=== PATIENT | male | born 1955 | race African-American/Black ===

== ENCOUNTER 2025-02-07 08:59 | Outpatient (CLI) | payer MEDICARE, SELFPAY ==
--- OUTSIDE RECORDS SUMMARY | 2025-02-07 09:47 | XMS_ITS | CONTINUITY OF CARE DOCUMENT ---
Author Name sekoueduardo anai Address Unknown Organization [facility] Address [address] [place] [address] Phone [phone] Care Team Providers Care Janitor And Cleaner Name Role Phone Sujatha RODRIGUEZ, [facility] [[email or web address]] Unavailable YENNIFER EUBANKS DO Unavailable [phone] YENNIFER EUBANKS DO Unavailable [phone] INSURANCE PROVIDERS Payer name Policy type / Coverage type Dougherty red green party ID [id number] Other [id number]
--- OUTSIDE RECORDS SUMMARY | 2025-02-07 09:47 | XMS_ITS | Encounter Summary ---
Author Name [facility] [place] [facility] [place] Address [address] [place] [address] Care Team Providers Care Second Cook And Baker Name Role Phone CHITRA CASTANEDA Primary Care Provider Unavailabl e Insurance Providers: All historical and current Section Date Range: From patient's date of to the date document was created. This section includes the names of all active insurance providers for the patient. Insurance Provider Type of Coverage Plan Name Start of Policy Coverage End of Policy Coverage Group Number Member ID Insurance Provider's Telephone Number Policy Najera's Name Patient's Relationship to Policy Najera [facility] (WNR) MEDICARE ADVANTAGE [facility] (WNR) Jun 23, 2021 [id number] Devin MITCHELL PATIENT Selected Encounter This section includes the information on record at [place] for the Encounter. Date/Time Encounter Type Encounter Description Reason Provider Source Sep 15, 2024 01:00 PM OFFICE O/P EST MOD 30 MIN OPHTHALMOLOGY ICD-10-CM H40.1131 Primary open-angle glaucoma, bilateral, mild stage MARY SANDOVAL Encounter Template Text not used by VA Assessments - Encounter Diagnoses This section includes the primary and secondary diagnoses documented for the Encounter. Date/Time Primary/Secondary Diagnosis Diagnosis Name Provider Source Nov 06, 2024 03:28 PM PRIMARY Primary open-angle glaucoma, bilateral, mild stage RAGHAVENDRA MONZON [facility] Nov 06, 2024 03:28 PM SECONDARY Age-related nuclear cataract, bilateral RAGHAVENDRA MONZON [facility] Plan of Treatment: Future Appointments (+ 6 months) and Future Tests (+/- 45 days) The Plan of Treatment section includes future care activities for the patient from all [place] [facility] This section includes future appointments and future orders which are active, pending or scheduled. Future Appointments This section includes appointments that were scheduled to occur 6 months from the date of the Encounter, up to a maximum of 20 appointments. The data comes from all [place] treatment facilities. Appointment Date/Time Appointment Type Appointme nt Facility Name Oct 31, 2024 01:00 PM AMBULATORY - PSYCHIATRY [facility] Nov 07, 2024 03:00 PM AMBULATORY - MEDICINE [facility] Nov 09, 2024 01:30 PM AMBULATORY - SURGERY [facility] Nov 18, 2024 07:37 PM AMBULATORY - MEDICINE [facility] Dec 12, 2024 10:00 AM AMBULATORY - NONE [facility] December 21, 2024 01:30 PM AMBULATORY - SURGERY [facility] Jan 22, 2025 01:30 PM AMBULATORY - PSYCHIATRY [facility] Feb 12, 2025 01:30 PM AMBULATORY - MEDICINE [facility] Mar 12, 2025 01:00 PM AMBULATORY - NONE [facility] Social History: Smoking Status (Most current) and Tobacco Use (All prior to encounter date) This section includes the most current, and the historical, smoking and tobacco- related health factors from the [place] facility where the Encounter took place. Current Smoking Status This section includes the most current smoking, or tobacco-related health factor, from the [place] facility where the Encounter took place. Date/Time Current Smoking Status Comment Parvez reynoso May 18, 2024 01:04 PM VA-TOBACCO FORMER USER [facility] Tobacco Use History This section includes a history of the smoking, or tobacco-related health factors, that were collected on or before the date of the Encounter. The data comes from the [place] facility where the Encounter took place. Date/Time Smoking Status/Tobacco Use Comment F acility May 18, 2024 01:04 PM VA-TOBACCO QUIT 15 YRS OR MORE [facility] December 30, 2018 07:34 PM LIFETIME NON-USER OF TOBACCO [facility] May 03, 2018 05:45 PM LIFETIME NON-USER OF TOBACCO [facility] May 13, 2016 03:31 PM LIFETIME NON-USER OF TOBACCO [facility] Mar 12, 2015 01:23 PM QUIT TOBACCO >7 YEARS AGO [facility] January 12, 2014 10:16 AM LIFETIME NON-USER OF TOBACCO [facility] Mar 02, 2013 11:09 AM QUIT TOBACCO >7 YEARS AGO [facility] Jul 26, 2008 02:17 PM QUIT TOBACCO >7 YEARS AGO [facility] Advance Directives: All historical and current Section Date Range: From patient's date of to the date document was created. This section includes ALL of a patient's completed or amended [place] Advance and Rescinded Directives. The entries below indicate that a directive exists for the patient, but an actual copy is not included with this document. The data comes from all [place] facilities. Date Advance Directives Provider Source Apr 02, 2016 ADVANCE DIRECTIVE DISCUSSION UDAY BREEN [facility] Encounter Notes: All associated encounter notes This section contains the clinical notes associated to the Encounter. Date/Time Encounter Note(s) Provider Source Sep 15, 2024 01:51 PM OPHTHALMOLOGY NOTE : LOCAL TITLE: OPHTHALMOLOGY NOTE [facility] STANDARD TITLE: OPHTHALMOLOGY NOTE DATE OF NOTE: SEP 15, 2024@13:51 ENTRY DATE: SEP 15, 2024@13:51:46 AUTHOR: RAGHAVENDRA MONZON COSIGNER: FLORIAN SANDOVAL URGENCY: STATUS: COMPLETED GLAUCOMA NOTE Stable, no changes in vision. Moved recently and has been less adherent to midday drops because of this. Still is very adherent to morning and evening drops. Feels he may miss afternoon dose ~2x/wk. ======== Drops: Simbrinza TID OU -- used today Timolol QAM OU -- used today Latan QHS OU -- used last night Intolerant of dorzolamide (prolonged burning) ======== VISUAL ACUITY Without Correction OD: 20/25 OS: 20/16 Ta 09/15/202407/0304/14/2412/02/2306/04/2305/0712/07/2207/09/2204/0808/25/2007/0303/28/2106/0111/28/20 12.01/0209/26/2005/06 = MD check post-dilation. (07/01 Tt pre-dilation) 06/15/1907/0401/27/1907/0209/07/1808/0303/09/1809/03/1706/0403/01/1705/0307/13/1608/0304/13/1603/04/16 ---- SLT OD 03/02 ---- 02/14/1612/27/1507/15/1508/0408/31/14 SLEx OU L/L mild ptosis/dermatochalasis OU C/S mild injection OU K Mild arcus otherwise clear OU AC d/q OU I R/R, no NVI L 1+/2+ NS OU with mild CS Fundus (12/02/23) CDR: 0.85 OD, 0.75 OS more thin superior and temporal Mac: macular RPE changes OU Periphery OK OU ======== CCT (prior): 613/614 Gonio (09/07/18): C-D40R 1+/2+ pigment OU G (08/25/21): Grade II-III OU with 1+/2+ pigment OU G (06/04/23): stable HVF 24-2 08/08/12 OD: Inferior nasal step and superior nasal step; low reliability OS: Early inferior nasal step; low reliability due to poor pt response HVF 12/2015 OD: INS (stable) OS: INS stable to very mild progression HVF 12/2015 OD: INS + progression OS: INS mild progression HVF 09/09 OD: in NS - MD stable since 2014 - other test poor reliability OS: inf NS - MD back to baseline HVF 09/10 OD: INS/IA + mild SNS -9.39 -> progression OS: INS -2.59 --> variable (slightly worse c/w 2017, but better c/w 2016) HVF 05/2019 OD: Poor reliability, apparent regression of SNS with INS/IA now only IN OS: Fair reliability, apparent regression of INS/IA HVF (2020-09-26) OD: Superior arcuate (New), dense inferior arcuate. MD -10.58 OS: Early inferior arcuate. MD -3.45 HVF (2020-11-28) OD: Inferior arcuate, superior arcuate resolved. MD -5.35 (much improved) OS: Early inferior arcuate. MD -1.73 (improved) HVF (2021-03-28) OD: Inferior arcuate slightly worse than prior, though within limits of prior garland, no superior changes. MD -6.69 OS: essentially full, improved. MD -0.68 HVF (2021-08-25) OD: Moderate IA - variable but appears stable OS: full vs faint INS HVF (2023-06-04) OD: Mild IA>SNS -4.59 - variable but appears stable OS: INS -2.23 - slt worse (but similar 2020) HVF 24-2 (04/14/24) OD unreliable with s/i arcuate OS: unreliable with nasal nonspecific defects Automated GVF (09/15/2024) OD: baseline automated GVF, possible inferior arcuate, superior lid artifact OS: baseline automated GVF, possible inferior arcuate, superior lid artifact = NFL 08/2014 OD thin sup/inf/temp (stable with 2012) OS thin sup (stable with 2012) NFL 11/30/16 OD thin sup/inf/temp (stable with 2014) OS thin sup (stable with 2014) NFL 09/07/17 OD thin sup/inf/temp OS thin sup (stable with 2014) NFL (2020-09-26) OD: Av. Severe S/I/T thinning OS: Av. Severe S thinning. Moderate T thinning NFL 01/22/22 OD: 56, RED I/T/S overall stable OS: [address] overall stable NFL 12/07/22 OD: 54 severe 270 thinning (stable) OS: [address] (stable) NFL 12/02/23 OD: 55 severe 270 thinning (stable) OS: [address] (stable) Mac OCT (12/02/23): thin OD>OS. Mild VMT OD. normal foveal depression OU A/P: 68 year old 1. 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 +FHx (sisters) - Intolerant of dorzolamide (prolonged burning) - HVF have been highly unreliable. Today with first automated GVF to see if this improves reliability. Given that this is the baseline measurement, will repeat automated GVF at next visit as well, then decrease to annual if stable. - Large disc size overall - IOP excellent today on 4 classes - Prior SLT without much effect, but could attempt again if needed - Continue to follow primarily with RNFL and IOP. If >18, then consider next intervention (SLT, phaco-MIGS, Durysta). Well below goal today. - Continue lat QHS, valentín QAM, and Simbrinza TID OU - RTC 4-6 months for repeat Automated GVF with lid taping OU, DFE OU, and OCT RNFL/GCC OU 2. Early cataracts OU - NVS, monitor - Consider phaco/goniotomy when the time comes 3. RE/P - Happy with uncorrected distance vision - Uses OTC readers - RTC 4-6 months for Automated GVF OU with lid taping OU, DFE OU, and OCT RNFL/GCC OU /es/ Raghavendra Monzon MD/PhD Dental Technician Signed: 09/15/2024 14:15 /es/ FLORIAN SANDOVAL MD Staff Physician, Ophthalmology Cosigned: 09/15/2024 14:59 RAGHAVENDRA MONZON [facility]
--- OUTSIDE RECORDS SUMMARY | 2025-02-07 09:47 | XMS_ITS | Encounter Summary ---
Author Name [facility] [place] Address [address] [place] [address] Care Team Providers Care Event Staff Member Name Role Phone LEONELESTHERNatanael Primary Care Provider Unavailabl e Insurance Providers: [...] Najera's Name Patient's Relationship to Policy Najera [facility] (WNR) MEDICARE ADVANTAGE [facility] (WNR) Jun 23, 2021 [id number] Devin MITCHELL PATIENT Selected Encounter This section includes the information on record at [place] for the Encounter. Date/Time Encounter Type Encounter Description Reason Provider Source Sep 15, 2024 01:02 PM EXTENDED VISUAL FIELD XM OPHTHALMOLOGY ICD-10-CM H40.1131 Primary open-angle glaucoma, bilateral, mild stage JAMIN LOMAX IHAmarjit Encounter Template Text not used by VA Assessments - Encounter Diagnoses This section includes the primary and secondary diagnoses documented for the Encounter. Date/Time Primary/Secondary Diagnosis Diagnosis Name Provider Source Nov 06, 2024 03:19 PM PRIMARY Primary open-angle glaucoma, bilateral, mild stage DARIN LOMAX [facility] Plan of Treatment: Future Appointments (+ 6 months) and Future Tests (+/- 45 days) The Plan of Treatment section includes future care activities for the patient [facility] [place] [facility]. This section includes future appointments and future orders which are active, pending or scheduled. Future Appointments This section includes appointments that were scheduled to occur 6 months from the date of the Encounter, up to a maximum of 20 appointments. The data comes from all [place] treatment [facility]. Appointment Date/Time Appointment Type Appointme nt Facility Name Oct 31, 2024 01:00 PM AMBULATORY - PS[facility]CH[facility]ATRY [facility] Nov 07, 2024 03:00 PM AMBULATORY - MEDICINE [facility] Nov 09, 2024 01:30 PM AMBULATORY - SURGERY [facility] Nov 18, 2024 07:37 PM AMBULATORY - MEDICINE [facility] Dec 12, 2024 10:00 AM AMBULATORY - NONE [facility] December 21, 2024 01:30 PM AMBULATORY - SURGERY [facility] Jan 22, 2025 01:30 PM AMBULATORY - PSYCHIATRY [facility] Feb 12, 2025 01:30 PM AMBULATORY - MEDICINE [facility] Mar 12, 2025 01:00 PM AMBULATORY - NONE [facility] Social History: Smoking Status (Most current) and Tobacco Use (All prior to encounter date) This section includes the most current, and the historical, smoking and tobacco- related health factors from the [place] facility where the Encounter took place. Current Smoking Status This section includes the most current smoking, or tobacco-related health factor, from the [place] facility where the Encounter took place. Date/Time Current Smoking Status Comment Parvez ity May 18, 2024 01:04 PM VA-TOBACCO FORMER USER [facility] Tobacco Use History This section includes a history of the smoking, or tobacco-related health factors, that were collected on or before the date of the Encounter. The data comes from the [place] facility where the Encounter took place. Date/Time Smoking Status/Tobacco Use Comment F acility May 18, 2024 01:04 PM [place]-TOBACCO QUIT 15 YRS OR MORE [facility] December 30, 2018 07:34 PM LIFETIME NON-USER OF TOBACCO [facility] May 03, 2018 05:45 PM LIFETIME NON-USER OF TOBACCO [facility] May 13, 2016 03:31 PM LIFETIME NON-USER OF TOBACCO [facility] Mar 12, 2015 01:23 PM QUIT TOBACCO >7 YEARS AGO [facility] January 12, 2014 10:16 AM LIFETIME NON-USER OF TOBACCO [facility] Mar 02, 2013 11:09 AM QUIT TOBACCO >7 YEARS AGO [facility] Jul 26, 2008 02:17 PM QUIT TOBACCO >7 YEARS AGO [facility] Advance Directives: All historical and current Section Date Range: From patient's date of to the date document was created. This section includes ALL of a patient's completed or amended [place] Advance and Rescinded Directives. The entries below indicate that a directive exists for the patient, but an actual copy is not included with this document. The data comes from all [place] facilities. Date Advance Directives Provider Source Apr 02, 2016 ADVANCE DIRECTIVE DISCUSSION NUHADIMASEliza MIGUEL Ellie [facility] Encounter Notes: All associated encounter notes This section contains the clinical notes associated to the Encounter. Date/Time Encounter Note(s) Provider Source Sep 15, 2024 01:02 PM OPHTHALMOLOGY NOTE : LOCAL TITLE: OPHTHALMOLOGY NOTE [facility] STANDARD TITLE: OPHTHALMOLOGY NOTE DATE OF NOTE: SEP 15, 2024@13:02 ENTRY DATE: SEP 15, 2024@13:02:57 AUTHOR: DARIN LOMAX EXP COSIGNER: URGENCY: STATUS: COMPLETED TESTING OBTAINED:GVF Kinetic OU Complete INITIAL EYE SCREEN LAST VISIT: 04/14/2024 CHIEF COMPLAINT: States no changes in vision since last visit OCULAR REVIEW OF SYSTEMS: VISUAL ACUITY With Out Correction OD: 20/25 OS: 20/16 AUTO REFRACTION SUBJ: OD: +1.75 +0.50 145 OS: +1.25 +0.25 144 VISUAL ACUITY WITH AUTO REFRACTION: OD: 20/30-2 OS: 20/20-2 LENSOMETER: OD: N/A OS: N/A /sadaf/ DARIN LOMAX INFORMATICS DEVELOPER Signed: 09/15/2024 13:30 DARIN LOMAX [facility]
--- OUTSIDE RECORDS SUMMARY | 2025-02-07 09:48 | XMS_ITS | Encounter Summary ---
Author Organization [facility] Health Address [address] [place] [address] Care Team Providers Care Therapeutic Activities Services Worker Name Role Phone Alvarez Eubanks DO Primary Care Provider [phone] Alvarez Eubanks DO Unavailable [phone] Carlos Flynn Suellen NIGHT CLUB MANAGER-FIXED [employer]ING AIR[employer]FT FLIGHT MECHANIC Unavailable Encounter Details Date Type Department Care Team (Late st Contact Info) Description 08/31/2018 [facility] Outpatient Visit [facility] [address] [place] [address] [place] [address] [address] Social History Tobacco Use Types Packs/Day Years Used Date Smoking Tobacco: Former Cigarettes Smokeless Tobacco: Never Alcohol Use Standard Drinks/Week Comments No 0 (1 standard drink = 0.6 oz pur e alcohol) Sex and Gender Information Value Date Recorded Sex Assigned at Not on file Legal Sex 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 Gender Identity Not on file Sexual Orientation Not on file documented as of this encounter Plan of Treatment Not on file documented as of this encounter Visit Diagnoses Not on filedocumented in this encounter Care Teams Therapeutic Activities Services Worker Relationship Specialty Start Date End Date Alvarez Eubanks DO [address] [place] [address] PCP - General 09/02/09 Alvarez Eubanks DO [address] [place] [address] PCP - Attributed-[employer] 01/21/19 03/12/20 Carlos Flynn APRN-FIXED WING AIRCRAFT FLIGHT MECHANIC [address] [facility] [address] [id number] PCP - Attributed-[employer] 01/07/19 01/07/19 documented as of this encounter
--- OUTSIDE RECORDS SUMMARY | 2025-02-07 09:48 | XMS_ITS | Encounter Summary ---
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 Date/Time Encounter Type Encounter Description Reason Provider Source Nov 07, 2024 03:00 PM OFFICE O/P EST MOD 30 MIN PRIMARY CARE/MEDICINE ICD-10-CM I10 Essential (primary) hypertension ESTHER CASTANEDA IHAmarjit Encounter Template Text not used by [facility] Assessments - Encounter Diagnoses This section includes the primary and secondary diagnoses documented for the Encounter. Date/Time Primary/Secondary Diagnosis Diagnosis Name Provider Source Nov 07, 2024 03:42 PM PRIMARY Essential (primary) hypertension ERVIN CASTANEDAJAMAR [facility] Nov 07, 2024 03:42 PM SECONDARY Hyperlipidemia, unspecified [facility] Nov 07, 2024 03:42 PM SECONDARY Impaired fasting glucose [facility] Nov 07, 2024 03:42 PM SECONDARY Malignant neoplasm of prostate [facility] Nov 07, 2024 03:42 PM SECONDARY Vitamin D deficiency, unspecified [facility] Plan of Treatment: Future Appointments (+ 6 months) and Future Tests (+/- 45 days) The Plan of Treatment section includes future care activities for the patient from [facility]. This section includes future appointments and future orders which are active, pending or scheduled. Future Appointments This section includes appointments that were scheduled to occur 6 months from the date of the Encounter, up to a maximum of 20 appointments. The data comes from all [facility]. Appointment Date/Time Appointment Type Appointme nt Facility Name Nov 09, 2024 01:30 PM AMBULATORY - SURGERY . [facility] Nov 18, 2024 07:37 PM AMBULATORY - MEDICINE [facility] Dec 12, 2024 10:00 AM AMBULATORY - NONE [facility] December 21, 2024 01:30 PM AMBULATORY - SURGERY [facility] Jan 22, 2025 01:30 PM AMBUL[facility]ORY - PS[facility]CHIATRY [facility] Feb 12, 2025 01:30 PM AMBULATORY - MEDICINE [facility] Mar 12, 2025 01:00 PM AMBULATORY - NONE [facility] May 01, 2025 01:30 PM AMBULATORY - PS[facility]CHIATRY [facility] Active, Pending, and Scheduled Orders This section includes a listing of several types of active, pending, and scheduled orders, including clinic medications orders, diagnostic test orders, procedure orders and consult orders; where the start date of the order is 45 days before the date of the Encounter or 45 days after the date of theEncounter. The data comes from all [facility]. Test Date/Time Test Type Test Details Facility Name Dec 12, 2024 12:00 AM Laboratory - Chemi stry Order OCCULT BLOOD FIT X1 SCREEN STOOL FECES SP [facility] Lab Results: +/- 30 days of the encounter This section includes the Chemistry and Hematology Lab Results on record with [place] for the patient. Radiology Reports and Pathology Reports are provided separately, in subsequent sections. Lab Results This section contains the Chemistry/Hematology Results that were resulted 30 days before or 30 daysafter the date of the Encounter. Date/Time Source Result Type Result - Unit Interpretation Reference Range Specimen Type Comment Dec 04, 2024 11:00 AM [facility] OCCULT BLOOD FIT X1 SCREEN FECES Specimen Typ e: FECES No comment entered. Ordering Provider: CHITRA CASTANEDA Report Released Date/Time: Nov 07, 2024 03:30 PM Reporting Lab: [facility] [address] [facility] [id number] Performing Lab: [address] [address] OCCULT BLOOD (FIT) #1 OF 1 Negative Nega tive Nov 18, 2024 08:06 PM [facility] COVID-19 DIAGNOSTIC (FLU/RSV)(STL) NASOPHARYNX Spec imen Type: NASOPHARYNX Comment: Qualitative real-time PCR and RT-PCR to detect viral RNA. A negative result does not preclude infection with the agent(s) tested and should not be used as the sole basis for treatment or other patient management decisions. If negative, but symptoms persist, consider re-testing. Positive results do not rule out bacterial infection or co-infection with other viruses. All results must be combined with clinical observations, patient history, and epidemiological information for final interpretation. Ordering Provider: ALBERTO HOOKS Report Released Date/Time: Nov 18, 2024 08:03 PM Reporting Lab: [facility] [address] [facility] [id number] Performing Lab: [address] [id number] INFLUENZA A NEG Negative INFLUENZA B NEG Negative COVID-19 (STL-PB) NEG Not Detected RSV (Cepheid) Negative Negative Vital Signs: All taken on the encounter date This section contains inpatient and outpatient Vital Signs collected on the date of the Encounter. Date/Time Temperature Pulse Blood Pressure Respiratory Rate SP02 Pain Height Weight Body Mass Index Source Nov 07, 2024 02:56 PM 97.9 84 131/87 3 96 3 205.4 28 [facility] Social History: Smoking Status (Most current) and Tobacco Use (All prior to encounter date) This section includes the most current, and the historical, smoking and tobacco- related health factors from the [place] facility where the Encounter took place. Current Smoking Status This section includes the most current smoking, or tobacco-related health factor, from the [place] facility where the Encounter took place. Date/Time Current Smoking Status Comment Facil ity May 26, 2023 09:30 AM VA-TOBACCO QUIT 15 YRS OR MORE [facility] Tobacco Use History This section includes a history of the smoking, or tobacco-related health factors, that were collected on or before the date of the Encounter. The data comes from the [place] facility where the Encounter took place. Date/Time Smoking Status/Tobacco Use Comment F acility May 26, 2023 09:30 AM VA-TOBACCO QUIT 15 YRS OR MORE [facility] Aug 21, 2021 11:30 AM VA-TOBACCO FORMER USER [facility] Aug 21, 2021 11:30 AM VA-TOBACCO QUIT 15 YRS OR MORE [facility] December 31, 2017 12:42 PM QUIT TOBACCO >7 YEARS AGO [facility] Aug 27, 2017 10:19 AM QUIT TOBACCO >7 YEARS AGO [facility] Aug 24, 2017 11:31 AM QUIT TOBACCO >7 YEARS AGO [facility] Advance Directives: All historical and current Section Date Range: From patient's date of to the date document was created. This section includes ALL of a patient's completed or amended [place] Advance and Rescinded Directives. The entries below indicate that a directive exists for the patient, but an actual copy is not included with this document. The data comes from all [facility]. Date Advance Directives Provider Source Apr 02, 2016 ADVANCE DIRECTIVE DISCUSSION UDAY BREEN [facility] Radiology Reports: +/- 30 days of the encounter Radiology Reports For cases when an order for radiology services may have been completed prior to the date of the Encounter, the report list includes the Radiology Reports that were completed up to 30 days before dateof the Encounter. For cases when an order for radiology services may have been completed after the date of the Encounter, the report list also includes the Radiology Reports that were completed up to30 days after date of the Encounter. The data comes from all [place] treatment facilities. Date/Time Radiology Report Provider Source Nov 18, 2024 07:46 PM CHEST X-RAY, 2 VIE WS: TRA GALINDO [id number] -[id number] M Exm Date: NOV 18, 2024@19:46 Req Phys: VU,ALBERTO D Pat Loc: [facility] 3RD SHIFT (R Img Loc: [facility] RADIOLOGY SUITE Service: [facility], [facility] [address] [place] [address] (Case [id number] COMPLETE) CHEST X-RAY, 2 VIEWS (RAD Detailed) CPT:41591 Reason for Study: PNA rule out Clinical History: Report Status: Verified Date Reported: NOV 18, 2024 Date Verified: NOV 18, 2024 Research Chief Engineer E-Sig: Report: Procedure: CHEST X-RAY, 2 VIEWS Clinical history: PNA rule out Comparison: Chest x-rays of November 14, 2018. Technique: The study was protocoled and supervised at the local [place] facility. Study was sent to [facility] national teleradiology program (NTP) for interpretation. Frontal and lateral chest radiographs. Number of images submitted for evaluation: #2 Findings: Cardiac silhouette is within normal limits. There is no radiographic evidence of pulmonary vascular congestion or pulmonary edema. There is no pathologic widening of the mediastinum. There is no pulmonary consolidation. There is no pulmonary nodule or mass. There is no pleural effusion. There is no pneumothorax. There is no osteolytic or osteoblastic bone lesion. There is is age-related spondylosis of the thoracic spine. There is no free air under the diaphragms. Impression: The frontal and lateral chest radiographs demonstrate no acute pathology. There is age-related spondylosis of the thoracic spine. There is no significant change from recent exams. READING PHYSICIAN: Pepe Watson M.D. -[id number] 11/18/2024 15:35 [facility] National Teleradiology Program [phone] (For Medical Practitioner Use Only) Attention Patients / Veterans: If you have questions or concerns about these test results, please contact your ordering provider or primary care team. Primary Interpreting Staff: RADIOLOGY,OUTSIDE SERVICE, Staff Physician / RADIOLOGY,OUTSIDE SERVICE [facility] Encounter Notes: All associated encounter notes This section contains the clinical notes associated to the Encounter. Date/Time Encounter Note(s) Provider Source Nov 07, 2024 03:23 PM PRIMARY CARE NOTE: LOCAL TITLE: PRIMARY CARE PROVIDER ESTABLISHED VISIT STL STANDARD TITLE: PRIMARY CARE NOTE DATE OF NOTE: NOV 07, 2024@15:23 ENTRY DATE: NOV 07, 2024@15:23:52 AUTHOR: CHITRA CASTANEDA EXP COSIGNER: URGENCY: STATUS: COMPLETED Patient is 69 and BLACK OR Self Identified Gender - NONE FOUND Reason for visit:Scheduled follow-up Chief Complaint: Eyes feel puffy and irritation History of Present Illness: Mr Galindo is 69-year-old Afro-Gabonese male. Here for his routine clinic visit Multiple chronic medical condition as listed below Compliance with medications in the last hectic previous months has improved to a different location now Blood pressure is well-controlled Has glaucoma followed by ophthalmology on ophthalmic drops reports that his eyes sometimes irritate and feel puffiness under the eyes he did not call ophthalmology encouraged him to follow-up with ophthalmology to discuss further He agrees and going to call them make another appointment No other complaint History of prostate CA - s/p RALP 04/2018 - has urinary incontinece since - wears liners in daytime and uses washcloth at night as it is more comfortable follow urology his LUIS A. SPECIFIC AG.(PB-STL) <0.100 ng/mL Problem List: 1) Hyperlipidemia (SNOMED CT 90781833) 2) Obesity (SNOMED CT 777174381) 3) Screening for Diabetes Mellitus (ICD-9-CM V77.1) 4) Impaired fasting glycaemia (SNOMED CT 242637840) 5) Open-Angle, Chronic 6) Encounter for Therapeutic Drug Monitoring (ICD-9-CM V58.83) 7) Hematospermia 8) Allergic rhinitis 9) Herpes zoster 10) Normal tension glaucoma 11) Recurrent depression 12) Admits alcohol use 13) Ventral hernia 14) Erectile dysfunction following radical prostatectomy (SNOMED CT 445731174552148) 15) Benign essential hypertension 16) History of malignant neoplasm of prostate 17) Vitamin D deficiency History: Service Connected: 60% Rated Disabilities: INGUINAL HERNIA (0% SC) 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 NO BRANCH(ES) OF SERVICE: SPECIFIC YEARS OF SERVICE: LOCATION OF SERVICE: ENVIRONMENTAL EXPOSURE: Medication Review: The essential med list for review which includes the patient's active VA prescriptions and if applicable, remote VA prescriptions, non-VA prescriptions, and discontinued VA prescriptions within the last 90 days and known allergies including local and remote allergies have been reviewed. Allergies:IODINATED CONTRAST MEDIA, TRAVATAN Z, SLO-NIACIN TABLET, DORZOLAMIDE, COSOPT Active and Recently Outpatient Medications (excluding Supplies): Active Outpatient Medications Status 1) ATORVASTATIN CALCIUM 80MG TAB TAKE ONE TABLET BY MOUTH EVERY ACTIVE EVENING REPORT ANY UNEXPLAINED MUSCLE PAIN/WEAKNESS TO PROVIDER. Indication: FOR HIGH CHOLESTEROL 2) BRIMONIDINE 0.2%/BRINZOLAMID 1% OPH SUSP INSTILL 1 DROP IN ACTIVE BOTH EYES THREE TIMES A DAY FOR GLAUCOMA 3) BUPROPION HCL 150MG 24HR SA TAB TAKE ONE TABLET BY MOUTH ACTIVE ONCE A DAY SWALLOW WHOLE - DO NOT CRUSH OR CHEW. Indication: FOR DEPRESSION 4) CHOLECALCIF 50MCG (D3-2,000UNIT) TAB TAKE ONE TABLET BY ACTIVE MOUTH ONCE A DAY Indication: FOR VITAMIN D DEFICIENCY 5) HCTZ 12.5MG/LOSARTAN 50MG TAB TAKE 1 TABLET BY MOUTH EVERY ACTIVE MORNING TO LOWER BLOOD PRESSURE Indication: FOR HIGH BLOOD PRESSURE 6) LATANOPROST 0.005% OPH SOLN INSTILL 1 DROP IN BOTH EYES ACTIVE EVERY EVENING FOR GLAUCOMA. KEEP REFRIGERATED UNTIL READY TO USE, THEN STORE AT ROOM TEMPERATURE FOR MAXIMUM OF 42 DAYS. 7) MELATONIN 1MG CAP/TAB TAKE TWO CAP/TAB BY MOUTH AT BEDTIME ACTIVE NEEDED Indication: FOR SLEEP 8) NALTREXONE (EQV-REVIA) 50MG TAB TAKE ONE TABLET BY MOUTH ACTIVE ONCE A DAY Indication: FOR ASSISTANCE WITH DEPENDENCY 9) TIMOLOL MALEATE 0.5% OPH SOLN INSTILL 1 DROP IN BOTH EYES ACTIVE EVERY MORNING FOR GLAUCOMA. Active Non-VA Medications Status 1) Non-VA CICLOPIROX OLAMINE 0.77% TOP GEL SPARINGLY TO ACTIVE AFFECTED AREA(S) AT BEDTIME 2) Non-VA NALTREXONE (EQV-REVIA) 50MG TAB 25MG BY MOUTH ONCE A ACTIVE DAY FOR 7 DAYS THEN 50MG BY MOUTH ONCE A DAY Indication: FOR ASSISTANCE WITH DEPENDENCY 3) Non-VA PAPAVERINE INJ INTRAMUSCULARLY NEEDED ACTIVE 12 Total Medications Physical Exam VITALS (most recent, as listed in the electronic record): B/P: 131/87 (11/07/2024 14:56) Pulse: 84 (11/07/2024 14:56) Temperature: 97.9 F [36.6 C] (11/07/2024 14:56) Weight: 205.4 lb [93.17 kg] (11/07/2024 14:56) Height: 72 in [182.9 cm] (03/03/2024 09:33) BMI: 27.9 Pain: 3 (11/07/2024 14:56) (0-10 scale) Data Review: HGA1C 5.7 % 07/05/2024 11:54 Lipid Panel: TRIGLYCERIDE 159 H mg/dL 07/05/2024 11:54 CHOLESTEROL 220 H mg/dL 07/05/2024 11:54 HDL(New) 65 mg/dL 07/05/2024 11:54 CALCULATED LDL 123 mg/dL 07/05/2024 11:54 CMP: SODIUM 139 mEq/L 07/05/2024 11:54 POTASSIUM 4.1 mEq/L 07/05/2024 11:54 CHLORIDE 108 H mEq/L 07/05/2024 11:54 UREA NITROGEN 10.4 mg/dL 07/05/2024 11:54 CREATININE 1.04 mg/dL 07/05/2024 11:54 CALCIUM 9.8 mg/dL 07/05/2024 11:54 PROTEIN 7.4 g/dL 07/05/2024 11:54 ALBUMIN 4.2 g/dL 07/05/2024 11:54 ALKALINE PHOSPHATASE 119 U/L 07/05/2024 11:54 ALT/SGPT 25 U/L 07/05/2024 11:54 AST/SGOT 20 U/L 07/05/2024 11:54 TOTAL BILIRUBIN 0.2 mg/dL 07/05/2024 11:54 CARBON DIOXIDE 21 L mEq/L 07/05/2024 11:54 GLUCOSE 98 mg/dL 07/05/2024 11:54 EGFR (CKD-EPI 2020) 78.2 07/05/2024 11:54 CBC: WBC 5.4 10*3/uL 11/23/2023 11:00 RBC 4.12 10*6/uL 11/23/2023 11:00 HGB 13.8 g/dL 11/23/2023 11:00 HCT 40.1 % 11/23/2023 11:00 MCV 97.3 fL 11/23/2023 11:00 MCH 33.5 pg 11/23/2023 11:00 MCHC 34.4 g/dL 11/23/2023 11:00 RDW 12.0 % 11/23/2023 11:00 PLT 310 10*3/uL 11/23/2023 11:00 MPV 10.4 fL 11/23/2023 11:00 NEUTROPHILS, AUTO % 49 % 11/23/2023 11:00 LYMPHOCYTES, AUTO % 37 % 11/23/2023 11:00 MONOCYTES, AUTO % 9 % 11/23/2023 11:00 EOSINOPHILS, AUTO % 4 % 11/23/2023 11:00 BASOPHILS, AUTO % 1 % 11/23/2023 11:00 NEUTROPHILS, ABSOLUTE 2.66 10*3/uL 11/23/2023 11:00 LYMPHOCYTES, ABSOLUTE 1.98 10*3/uL 11/23/2023 11:00 MONOCYTES, ABSOLUTE 0.48 10*3/uL 11/23/2023 11:00 EOSINOPHILS, ABSOLUTE 0.24 10*3/uL 11/23/2023 11:00 BASOPHILS, ABSOLUTE 0.03 10*3/uL 11/23/2023 11:00 PSA: PROST. SPECIFIC AG.(PB-STL) <0.100 ng/mL 07/05/2024 11:54 TSH: No TSH (1YR) EO data found UA: URINE COLOR Yellow 11/23/2023 11:00 APPEARANCE Clear 11/23/2023 11:00 U.PH 5.5 11/23/2023 11:00 U.BILIRUBIN Negative mg/dL 11/23/2023 11:00 U.NITRITE Negative mg/dL 11/23/2023 11:00 URINE RBC/HPF 2 /HPF 11/23/2023 11:00 URINE WBC/HPF <1 /HPF 11/23/2023 11:00 MUCUS RARE /LPF 11/23/2023 11:00 CA OXYLATE CRYSTALS OCC /HPF 11/23/2023 11:00 Vitamin D: VITAMIN D, 25-HYDROXY 23.8 L ng/mL 07/05/2024 11:54 Micral/Creat Profile: No data available Result: Follow-up Action: Assessment/Plan: 1) hypertension-stable continue current antihypertensive -Continue avoid salty food and food like hot dog lunch meat canned food low sodium diet -Exercise daily 2) hyperlipidemia- Continue Atorvaststin 80 mga day -avoid saturated fat/animal fat diet- 3) Prediabetes - watch diet avoidance high carbohydrate diet like potato rice white bread he needs soda and juices Exercise daily and lose weight 4) erectile dysfunction Tadanafil 10mg pr week as directed He aware not to be on any nitrate compound Also aware tinnitus and NAION if experience. Medication immediately 5)Chronic low back pain - s/p surgery 1990 Stable - cont. Lidocain patch -use heating pad at home -Discussed stretch exercise Gabapentin and methocarbamol he takes as needed he felt 6) obstructive sleep apnea Using CPAP machine daily RTC: CLINICAL REMINDERS COMPLETED Avg Risk Colorectal Cancer Screen - L,N,P,PH: AVERAGE RISK colorectal cancer screening is due based on information available to this clinical reminder FOBT/FIT (Fecal Immunochemical Testing) has been ordered. See order tab for details. Screening is due now. Colonoscopy consult has been ordered. See orders tab for details. Depression Monitoring (PHQ-9) - M,N,P,PH,PS,R,S,T: PHQ-9 A PHQ-9 screen was performed. The score was 0. 1. Little interest or pleasure in doing things Not at all 2. Feeling down, depressed, or hopeless Not at all 3. Trouble falling or staying asleep, or sleeping too much Not at all 4. Feeling tired or having little energy Not at all 5. Poor appetite or overeating Not at all 6. Feeling bad about yourself or that you are a failure or have let yourself or your family down Not at all 7. Trouble concentrating on things, such as reading the newspaper or watching television Not at all 8. Moving or speaking so slowly that other people could have noticed. Or the opposite being so fidgety or restless that you have been moving around a lot more than usual Not at all 9. Thoughts that you would be better off or of hurting yourself in some way Not at all 10. If you checked off any problems, how DIFFICULT have these problems made it for you to do your work, take care of things at home or get along with other people? Not difficult at all [place]'s PHQ9 score IMPROVED from the most recent score PHQ-9 results discussed with patient Other Communication: followed by TIMOTHY /sadaf/ Chitra Castaneda MD Staff Physician Signed: 11/07/2024 15:44 CHITRA CASTANEDA [facility] Nov 07, 2024 02:57 PM NURSING NOTE: LOCAL TITLE: V15 PACT FACE TO FACE NOTE STL STANDARD TITLE: NURSING NOTE DATE OF NOTE: NOV 07, 2024@14:57 ENTRY DATE: NOV 07, 2024@14:57:31 AUTHOR: DONNA HORTON EXP COSIGNER: URGENCY: STATUS: COMPLETED V15 PACT FACE TO FACE NOTE STL Has ADDENDA Provider Visit: Patient Identifiers : Full Name Date of Reason for visit: Established Follow-Up Mode of Arrival: Ambulatory Allergy Review: IODINATED CONTRAST MEDIA, TRAVATAN Z, SLO-NIACIN TABLET, DORZOLAMIDE, COSOPT Allergy list reviewed and remains current. Recent Vital Signs: Temperature: 97.9 F [36.6 C] (11/07/2024 14:56) Pulse: 84 (11/07/2024 14:56) Respiration: 3 (11/07/2024 14:56) B/P: 131/87 (11/07/2024 14:56) Pain: 3 (11/07/2024 14:56) Wt: 205.4 lb [93.17 kg] (11/07/2024 14:56) Ht: 72 in [182.9 cm] (03/03/2024 09:33) BMI: 27.9 POX: 96% (11/07/2024 14:56) Blood sugar glucometer reading: N/A PERSONAL HEALTH INVENTORY Notes: No data available for PHI note titles PERSONAL HEALTH INVENTORY - MAP: Personal Health Inventory (Short) 06/28/2023 Phis What Do You Live For HEALTH [facility] 07/10/2024 Personal Health Plan [place], [place] (MAP) FAMILY 11/29/2023 Personal Health Plan [place], [place] (MAP) my health 10/06/2023 Personal Health Plan [place], [place] (MAP) be healthy eat better What matters most to you in your life right now? -- [place]'s Response: EVERYTHING Would you like to discuss any personal problem, family problem, alcohol use, drug use, or a mental or emotional illness? No Contact provided Primary Care phone number and encouraged to call if any questions or concerns. Review that after hours nurse line [phone] and emergency room are available 15/03 for patient use. Contact verbalized good understanding. No notification required for this note. Homelessness/Food Insecurity Screen - DI,L,N,P,PH,PS,S,U: In the past 2 months, have you been living in stable housing that you own, rent, or stay in as part of a household? Yes - Living in stable housing. Are you worried or concerned that in the next 2 months you may NOT have stable housing that you own, rent, or stay in as part of a household? No - Not worried about housing near future The reports the following: Within the past 12 months, you worried whether your food would run out before you got money to buy more. Never true Within the past 12 months, the food you bought just didn't last and you didn't have money to get more. Never true /sadaf/ DONNA HORTON LPN LICENSED PRACTICAL NURSE Signed: 11/07/2024 14:59 12/12/2024 ADDENDUM STATUS: COMPLETED OCCULT BLOOD FIT X1 SCREEN STOOL FECES SP LB #[id number] Collection time: Dec 04, 2024@11:00 Test Name Result Units Range --------- ------ ----- ----- FIT1/1 Negative Ref: Negative Comments: /sadaf/ Chitra Castaneda MD Staff Physician Signed: 12/12/2024 23:20 DONNA HORTON [facility]
--- OUTSIDE RECORDS SUMMARY | 2025-02-07 09:48 | XMS_ITS | Encounter Summary ---
Author Name [facility] Organization [facility] Address [address] [place] [address] Care Team Providers Care Drilling Inspector Name Role Phone CHITRA CASTANEDA Primary Care [...] Najera's Name Patient's Relationship to Policy Najera [facility] (WNR) MEDICARE ADVANTAGE [facility] (WNR) Jun 23, 2021 [id number] Devin MITCHELL PATIENT Selected Encounter This section includes the information on record at MD for the Encounter. Date/Time Encounter Type Encounter Description Reason Provider Source Aug 01, 2024 11:30 AM OFFICE O/P EST LOW 20 [facility] - IND ICD-10-CM F33.0 Major depressive disorder, recurrent, mild BRADEN FORD IHAmarjit Encounter Template Text not used by [facility] Assessments - Encounter Diagnoses This section includes the primary and secondary diagnoses documented for the Encounter. Date/Time Primary/Secondary Diagnosis Diagnosis Name Provider Source Aug 01, 2024 12:11 PM PRIMARY Major depressive disorder, recurrent, mild BRADEN FORD [facility] Aug 01, 2024 12:11 PM SECONDARY Alcohol dependence with unspecified alcohol-induced disorder BRADEN FORD [facility] Plan of Treatment: Future Appointments (+ 6 months) and Future Tests (+/- 45 days) The Plan of Treatment section includes future care activities for the patient from all [facility]. This section includes future appointments and future orders which are active, pending or scheduled. Future Appointments This section includes appointments that were scheduled to occur 6 months from the date of the Encounter, up to a maximum of 20 appointments. The data comes from all MD treatment facilities. Appointment Date/Time Appointment Type Appointme nt Facility Name Sep 15, 2024 01:00 PM AMBULATORY - SURGERY [facility] Oct 31, 2024 01:00 PM AMBULATORY - PSYCHIATRY [facility] Nov 07, 2024 03:00 PM AMBULATORY - MEDICINE [facility] Nov 09, 2024 01:30 PM AMBULATORY - SURGERY [facility] Nov 18, 2024 07:37 PM AMBULATORY - MEDICINE [facility] Dec 12, 2024 10:00 AM AMBULATORY - NONE [facility] December 21, 2024 01:30 PM AMBULATORY - SURGERY [facility] Jan 22, 2025 01:30 PM AMBULATORY - PSYCHIATRY [facility] Lab Results: +/- 30 days of the encounter This section includes the Chemistry and Hematology Lab Results on record with MD for the patient. Radiology Reports and Pathology Reports are provided separately, in subsequent sections. Lab Results This section contains the Chemistry/Hematology Results that were resulted 30 days before or 30 daysafter the date of the Encounter. Date/Time Source Result Type Result - Unit Interpretation Reference Range Specimen Type Comment Jul 05, 2024 11:[address] [facility] VITAMIN D, 25-HYDROXY SERUM Specimen Type: SERUM No comment entered. Ordering Provider: CHITRA CASTANEDA Report Released Date/Time: Mar 03, 2024 10:21 AM Reporting Lab: [facility] [address] [place] [id number] Performing Lab: [facility] [address] [facility] [phone] VITAMIN D, 25-HYDROXY 23.8 ng/mL L 30-96 Jul 05, 2024 11:[address] [facility] LIPID PANEL (STL) PLASMA Specimen Type: PLASM A Comment: No hemolysis noted. Ordering Provider: CHITRA CASTANEDA Report Released Date/Time: Mar 03, 2024 10:21 AM Reporting Lab: [address] [address] Performing Lab: [address] [address] CHOLESTEROL 220 mg/dL H 0-200 TRIGLYCERIDE 159 mg/dL H 0-150 CALCULATED LDL 123 mg/dL HDL(New) 65 mg/dL >40 Jul 05, 2024 11:[address] [facility] HGA1C BLOOD Specimen Type: BLOOD No comment entered. Ordering Provider: CHITRA CASTANEDA Report Released Date/Time: Mar 03, 2024 10:21 AM Reporting Lab: [address] [address] Performing Lab: [address] [address] HGA1C 5.7 4.0-6.0 Jul 05, 2024 11:[address] [facility] PROST. SPECIFIC AG.(PB-STL) SERUM Specimen Ty pe: SERUM Comment: The listed sex of this patient may not be a typical indication for this test. Therefore, reference ranges or interpretive criteria listed may not be valid. Clinical correlation suggested. Ordering Provider: CHITRA CASTANEDA Report Released Date/Time: Mar 03, 2024 10:21 AM Reporting Lab: [address] [address] Performing Lab: [address] [address] PROST. SPECIFIC AG.(PB-STL) <0.100 ng/mL 0-4 Jul 05, 2024 11:54 AM [facility] COMPREHENSIVE METABOLIC PANEL PLASMA Specimen Type: PLASMA Comment: No hemolysis noted. Ordering Provider: BRADEN FORD Report Released Date/Time: Jun 20, 2024 01:13 PM Reporting Lab: [facility] [address] [facility] [address] Performing Lab: [facility] [address] [facility] [address] CREATININE 1.04 mg/dL 0.7-1.3 UREA NITROGEN 10.4 mg/dL 9.0-25.0 GLUCOSE 98 mg/dL 72-99 SODIUM 139 meq/L 136-145 POTASSIUM 4.1 meq/L 3.5-5 CHLORIDE 108 meq/L H 98-107 CARBON DIOXIDE 21 meq/L L 22-31 CALCIUM 9.8 mg/dL 8.4-10.4 PROTEIN 7.4 g/dL 6-8.6 ALBUMIN 4.2 g/dL 3.4-5 TOTAL BILIRUBIN 0.2 mg/dL 0.2-1.2 ALKALINE PHOSPHATASE 119 U/L 40-150 AST/SGOT 20 U/L 5-34 ALT/SGPT 25 U/L 8-40 EGFR (CKD-EPI 2020) 78.2 >60 Social History: Smoking Status (Most current) and Tobacco Use (All prior to encounter date) This section includes the most current, and the historical, smoking and tobacco- related health factors from the MD facility where the Encounter took place. Current Smoking Status This section includes the most current smoking, or tobacco-related health factor, from the MD facility where the Encounter took place. Date/Time Current Smoking Status Comment Parvez reynoso May 18, 2024 01:04 PM VA-TOBACCO QUIT 15 YRS OR MORE [facility] Tobacco Use History This section includes a history of the smoking, or tobacco-related health factors, that were collected on or before the date of the Encounter. The data comes from the MD facility where the Encounter took place. Date/Time Smoking Status/Tobacco Use Comment Ez ambriz May 18, 2024 01:04 PM MD-TOBACCO QUIT 15 YRS OR MORE [facility] December 30, 2018 07:34 PM LIFETIME NON-USER OF TOBACCO [facility] May 03, 2018 05:45 PM LIFETIME NON-USER OF TOBACCO [facility] May 13, 2016 03:31 PM LIFETIME NON-USER OF TOBACCO [facility] Mar 12, 2015 01:23 PM QUIT TOBACCO >7 YEARS AGO [facility] January 12, 2014 10:16 AM LIFETIME NON-USER OF TOBACCO [facility] Mar 02, 2013 11:09 AM QUIT TOBACCO >7 YEARS AGO [facility] Jul 26, 2008 02:17 PM QUIT TOBACCO >7 YEARS AGO [facility] Advance Directives: All historical and current Section Date Range: From patient's date of to the date document was created. This section includes ALL of a patient's completed or amended MD Advance and Rescinded Directives. The entries below indicate that a directive exists for the patient, but an actual copy is not included with this document. The data comes from all MD facilities. Date Advance Directives Provider Source Apr 02, 2016 ADVANCE DIRECTIVE DISCUSSION UDAY BREEN [facility] Encounter Notes: All associated encounter notes This section contains the clinical notes associated to the Encounter. Date/Time Encounter Note(s) Provider Source Aug 01, 2024 11:23 AM PSYCHIATRY NOTE: LOCAL TITLE: PSYCHIATRY [facility] STANDARD TITLE: PSYCHIATRY NOTE DATE OF NOTE: AUG 01, 2024@11:23 ENTRY DATE: AUG 01, 2024@11:23:51 AUTHOR: BRADEN FORD EXP COSIGNER: URGENCY: STATUS: COMPLETED PSYCHIATRIC FOLLOW-UP NOTE [facility] Name: ERAN MITCHELL Age: 69 Gender: MALE Visit Date: AUG 01, 2024 Time: 7220-0501 REASON FOR ENCOUNTER: ERAN MITCHELL is a 69-year-old MALE with a PPH of MDD, alcohol use and a PMH of HLD and HTN who presents to clinic for follow-up. They were last seen on 06/20/24 with the following recommendations/adjustments: - start Melatonin 2 mg qhs prn - continue Naltrexone 50 mg daily - vet purchased from contract management specialist and was provided 180 tablets - continue Bupropion XL 150 mg daily - LFTs due (July 2024) Most recent visit summary: - no side effects on naltrexone, reported it was 30% effective - drinks 2 beers at a time, but not every day (2-3/7 days per week) - energy/sleep/irritability improved, cleaning his house, feels more motivated - rewarded himself for doing better (w/ a beer) > discussed rewarding himself via other means besides alcohol - denied depression INTERVAL HISTORY: Today on interview, Eran reports that he is doing well today. He reports melatonin has been helpful with his sleep; he is taking is prn. He states that he feels more relax to be able to fall asleep. He notes that stressors affect his sleep. He states that he gets around 6-8 hours per night. Regarding alcohol use, he states that his alcohol use has not decreased and describes June as a challenging month (Max's day, birth, and ) because of the festive times. He describes being in good moods during these holidays. He is drinking 2 beers at a time, 2-3 days out of 7. Denies side effects from his medications. He states he is planning to move his current residence (on this coming Wednesday--he has already signed the lease); he states that his new place will have more outdoor space and he feels good about this. Denies concerns for depression, anhedonia, hopelessness. He states he overall feels good about his upcoming move and his progress. He denies getting drunk during any of his times of consumption. MEDICATION SIDE EFFECTS: None. 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 at recent visits has reported continued ability to cut back on alcohol intake, but in 04/2024 had been drinking up to 3 beers per day and wished to reconnect with psychiatry for further support. Began treatment with Wellbutrin in 2021 for tobacco cessation. Started Naltrexon 50 mg daily for alcohol cravings in 2023 (vet was drinking 3-4 beers daily and grew concerned that it was becoming a habit). OUTPATIENT MEDICATIONS: Active Outpatient Medications (including Supplies): Active Outpatient Medications Status 1) ATORVASTATIN CALCIUM 80MG TAB TAKE ONE TABLET BY ACTIVE MOUTH EVERY EVENING FOR HIGH CHOLESTEROL REPORT ANY UNEXPLAINED MUSCLE PAIN/WEAKNESS TO PROVIDER. 2) BRIMONIDINE 0.2%/BRINZOLAMID 1% OPH SUSP INSTILL 1 ACTIVE DROP IN BOTH EYES THREE TIMES A DAY FOR GLAUCOMA 3) BUPROPION HCL 150MG 24HR SA TAB TAKE ONE TABLET BY ACTIVE MOUTH ONCE A DAY FOR DEPRESSION SWALLOW WHOLE - DO NOT CRUSH OR CHEW. 4) CHOLECALCIF 50MCG (D3-2,000UNIT) TAB TAKE ONE TABLET ACTIVE BY MOUTH ONCE A DAY 5) HCTZ 12.5MG/LOSARTAN 50MG TAB TAKE 1 TABLET BY MOUTH ACTIVE EVERY MORNING FOR HIGH BLOOD PRESSURE TO LOWER BLOOD PRESSURE 6) LATANOPROST 0.005% OPH SOLN INSTILL 1 DROP IN BOTH ACTIVE EYES EVERY EVENING FOR GLAUCOMA. KEEP REFRIGERATED UNTIL READY TO USE, THEN STORE AT ROOM TEMPERATURE FOR MAXIMUM OF 42 DAYS. 7) MELATONIN 1MG CAP/TAB TAKE TWO CAP/TAB BY MOUTH AT ACTIVE (S) BEDTIME NEEDED FOR SLEEP 8) SODIUM FLUORIDE 1.1% TOOTHPASTE USE DIRECTED BY ACTIVE MOUTH ONCE A DAY FOR DENTAL HEALTH TOOTHPASTE (DO NOT SWALLOW) 9) TIMOLOL MALEATE 0.5% OPH SOLN INSTILL 1 DROP IN BOTH ACTIVE EYES EVERY MORNING FOR GLAUCOMA. Active Non-VA Medications Status 1) Non-VA CICLOPIROX OLAMINE 0.77% TOP GEL SPARINGLY TO ACTIVE AFFECTED AREA(S) AT BEDTIME 2) Non-VA NALTREXONE (EQV-REVIA) 50MG TAB 25MG BY MOUTH ACTIVE ONCE A DAY FOR 7 DAYS THEN 50MG BY MOUTH ONCE A DAY 3) Non-VA PAPAVERINE INJ INTRAMUSCULARLY NEEDED ACTIVE 12 Total Medications No medications found. ACTIVE OUTPATIENT INJECTIONS AND INPATIENT MEDICATIONS No medications found. PSYCHIATRIC SPECIALTY EXAMINATION: ====== MSE: *Appearance: 69 yo black male who appears approximately stated age, wearing casual clothing, good grooming *Behavior: cooperative, engaged, not in acute distress nor acutely agitated *Speech: normal rate, volume, and prosody. Normal latency *Eye contact: Appropriate, good *Movements: No PSA/PSR; no mannerisms, tics, dystonic reactions, tardive movements or other abnormal movements appreciated *Mood: pretty good *Affect: Congruent, euthymic, full range *Thought Process: linear, logical, coherent *Thought Content: Denies SI, HI, or AVH. No evidence of delusional content, paranoid ideation, IOR, thought blocking/insertion/withdrawa l, or internal preoccupation. *Insight: Fair (describes illness, symptomatology, and desire for treatment) *Judgment: Fair (help-seeking behaviors, medication adherent, no behavioral incidents) *Cognitive Assessment: able to follow conversation and respond logically, short and long-term memory intact grossly, AO to name/place/year/president PERTINENT LAB FINDINGS: CBC: WBC 5.4 10*3/uL 11/23/2023 11:00 RBC [...] 11:00 BASOPHILS, ABSOLUTE 0.03 10*3/uL 11/23/2023 11:00 CHEM 7: SODIUM 139 mEq/L 07/05/2024 11:54 POTASSIUM 4.1 mEq/L 07/05/2024 11:54 CHLORIDE 108 H mEq/L 07/05/2024 11:54 UREA NITROGEN 10.4 mg/dL 07/05/2024 11:54 CREATININE 1.04 mg/dL 07/05/2024 11:54 CALCIUM 9.8 mg/dL 07/05/2024 11:54 CARBON DIOXIDE 21 L mEq/L 07/05/2024 11:54 GLUCOSE 98 mg/dL 07/05/2024 11:54 EGFR (CKD-EPI 2020) 78.2 07/05/2024 11:54 HEPATIC PANEL: No data available SGPT: 25 U/L (07/05/24 11:54) SGOT:20 U/L (07/05/24 11:54) TRIGLYCERIDES:159 mg/dL H (07/05/24 11:54) CHOLESTEROL: CHOLESTEROL 220 H mg/dL 07/05/2024 11:54 HEMOGLOBIN AL2:HGA1C 5.7 % 07/05/2024 11:54 TSH:No TSH (2YR) EO data found ASSESSMENT: PAULAERAN Ocasio is a 68-year-old MALE with a PPH of MDD, alcohol use and a PMH of HLD and HTN who presents to clinic for follow-up. Today, Eran notes stability in his alcohol consumption and reports stable mood. He has continued to drink, but is more cognizant of his use and his overall use has declined. Secondary to his reduction in alcoho luse, he has been more motivated, energetic, and has noted improvement in his mood. His sleep has improved with OTC chamomile tea and melatonin (which he uses prn). No acute concerns for depression. Vet does not wish to make changes today. This author provided supportive therapy and we discussed behavioral techniques to further address his alcohol consumption. The is not suicidal/homicidal, not clinically intoxicated, and not gravely disabled due to magali or psychosis and therefore, within a reasonable degree of medical certainty does not appear to pose an imminent harm to self or others; and the may continue outpatient follow-up. Diagnoses (DSM 5 Criteria): 1) Major depressive disorder, recurrent, in full remission 2) Alcohol use (consider use disorder, mild) PLAN: ===== - vet uses chamomile tea prn for insomnia (finds helpful) - continue Melatonin 2 mg qhs prn for insomnia - continue Naltrexone 50 mg daily for alcohol cravings - vet purchased from contract management specialist and was provided 180 tablets - continue Bupropion XL 150 mg daily for depression, nicotine cessation - Apr 2024: LFTs/CMP wnl > will order LFTs immediately prior to next visit for vet to collect before appointment EDUCATION: - Educated to be compliant and encouraged to take the medication(s) daily; to continue to take even if the feels better; and to not stop taking medications without checking with the healthcare provider; and to call us when questions arise about medications. The was counseled to keep follow-up appointments. - We discussed alternatives to treatment, including no treatment, as well as risks, benefits, side effects. The voiced understanding and consented to treatment. - We discussed crisis resources in detail. The was informed to [phone] for ROUTINE questions/concerns, to call [facility] and press 1 for URGENT or EMERGENT situations or to call 911 or present to the nearest ER. Also, the was advised that the [facility] ER is available to the pt. on a 24/7 basis if needed. Informed Consent: The diagnosis, rationale for proposed treatment, and treatment plan was discussed with the patient, who was able to express understanding of the nature of the disease, the recommended treatment, the risks and benefits, as well as the risks and benefits of alternative treatments, including no treatment. The patient was able to express appreciation of the need for treatment and would like to proceed. The patient was able to weigh options and describe pros and cons of each option, demonstrating reasoning. Finally, the patient was able to express a choice and agrees to the treatment plan as described above. FOLLOW-UP: Return to clinic in 12 weeks TIME: 30 minutes Braden Ford MD Psychiatry /es/ BRADEN FORD MD [facility] Psychiatrist Signed: 08/01/2024 12:11 BRADEN FORD [facility]
--- OUTSIDE RECORDS SUMMARY | 2025-02-07 09:48 | XMS_ITS | Encounter Summary ---
Author Name [facility] [place] [facility] [place] [facility] [place] Address [address] [place] [address] Care Team Providers Care Life Science Technical Officer Name Role Phone CHITRA CASTANEDA Primary Care [...] Najera's Name Patient's Relationship to Policy Najera [facility] (WNR) MEDICARE ADVANTAGE [facility] (WNR) Jun 23, 2021 [id number] Devin MITCHELL PATIENT Selected Encounter This section includes the information on record at [place] for the Encounter. Date/Time Encounter Type Encounter Description Reason Provider Source December 21, 2024 01:30 PM OFFICE O/P EST MOD 30 MIN OPHTHALMOLOGY ICD-10-CM H40.1132 Primary open-angle glaucoma, bilateral, moderate stage NARAVANE,AMEAY V IHE Encounter Template Text not used by [facility] Assessments - Encounter Diagnoses This section includes the primary and secondary diagnoses documented for the Encounter. Date/Time Primary/Secondary Diagnosis Diagnosis Name Provider Source December 21, 2024 02:21 PM PRIMARY Primary open-angle glaucoma, bilateral, moderate stage NARAVANE,AMEAY V [facility] Plan of Treatment: Future Appointments (+ 6 months) and Future Tests (+/- 45 days) The Plan of Treatment section includes future care activities for the patient from all [place] treatmentfacilities. This section includes future appointments and future orders which are active, pending or scheduled. Future Appointments This section includes appointments that were scheduled to occur 6 months from the date of the Encounter, up to a maximum of 20 appointments. The data comes from all [place] treatment [facility]. Appointment Date/Time Appointment Type Appointme nt Facility Name Jan 22, 2025 01:30 PM AMBULATORY - PSYCHIATRY [facility] Feb 12, 2025 01:30 PM AMBULATORY - MEDICINE [facility] Mar 12, 2025 01:00 PM AMBULATORY - NONE [facility] May 01, 2025 01:30 PM AMBULATORY - PSYCHIATRY [facility] May 17, 2025 02:00 PM AMBULATORY - SURGERY [facility] Active, Pending, and Scheduled Orders This section includes a listing of several types of active, pending, and scheduled orders, including clinic medications orders, diagnostic test orders, procedure orders and consult orders; where the start date of the order is 45 days before the date of the Encounter or 45 days after the date of theEncounter. The data comes from all [facility]. Test Date/Time Test Type Test Details Facility Name Dec 12, 2024 12:00 AM Laboratory - Chemi alexandre Order OCCULT BLOOD FIT X1 SCREEN STOOL FECES SP [facility] Lab Results: +/- 30 days of the encounter This section includes the Chemistry and Hematology Lab Results on record with [place] for the patient. Radiology Reports and Pathology Reports are provided separately, in subsequent sections. Lab Results This section contains the Chemistry/Hematology Results that were resulted 30 days before or 30 daysafter the date of the Encounter. Date/Time Source Result Type Result - Unit Interpretation Reference Range Specimen Type Comment Dec 04, 2024 11:00 AM [facility] OCCULT BLOOD FIT X1 SCREEN FECES Specimen Typ e: FECES No comment entered. Ordering Provider: CHITRA CASTANEDA Report Released Date/Time: Nov 07, 2024 03:30 PM Reporting Lab: [facility] [address] [facility] [id number] Performing Lab: [facility] [address] [facility] [id number] OCCULT BLOOD (FIT) #1 OF 1 Negative Nega tive Social History: Smoking Status (Most current) and Tobacco Use (All prior to encounter date) This section includes the most current, and the historical, smoking and tobacco- related health factors from the [place] facility where the Encounter took place. Current Smoking Status This section includes the most current smoking, or tobacco-related health factor, from the [place] facility where the Encounter took place. Date/Time Current Smoking Status Comment Facil ity May 18, 2024 01:04 PM [place]-TOBACCO QUIT 15 YRS OR MORE [facility] Tobacco Use History This section includes a history of the smoking, or tobacco-related health factors, that were collected on or before the date of the Encounter. The data comes from the [place] facility where the Encounter took place. Date/Time Smoking Status/Tobacco Use Comment F acility May 18, 2024 01:04 PM [place]-TOBACCO QUIT 15 YRS OR MORE [facility] December 30, 2018 07:34 PM LIFETIME NON-USER OF TOBACCO [facility] May 03, 2018 05:45 PM LIFETIME NON-USER OF TOBACCO [facility] May 13, 2016 03:31 PM LIFETIME NON-USER OF TOBACCO [facility] Mar 12, 2015 01:23 PM QUIT TOBACCO >7 YEARS AGO [facility] January 12, 2014 10:16 AM LIFETIME NON-USER OF TOBACCO [facility] Mar 02, 2013 11:09 AM QUIT TOBACCO >7 YEARS AGO [facility] Jul 26, 2008 02:17 PM QUIT TOBACCO >7 YEARS AGO [facility] Advance Directives: All historical and current Section Date Range: From patient's date of to the date document was created. This section includes ALL of a patient's completed or amended [place] Advance and Rescinded Directives. The entries below indicate that a directive exists for the patient, but an actual copy is not included with this document. The data comes from all [facility]. Date Advance Directives Provider Source Apr 02, 2016 ADVANCE DIRECTIVE DISCUSSION UDAY BREEN [facility] Encounter Notes: All associated encounter notes This section contains the clinical notes associated to the Encounter. Date/Time Encounter Note(s) Provider Source December 21, 2024 02:06 PM OPHTHALMOLOGY NOTE : LOCAL TITLE: OPHTHALMOLOGY NOTE [facility] STANDARD TITLE: OPHTHALMOLOGY NOTE DATE OF NOTE: DECEMBER 21, 2024@14:06 ENTRY DATE: DECEMBER 21, 2024@14:06:43 AUTHOR: GEORGIE GOEL COSIGNER: URGENCY: STATUS: COMPLETED Last seen 09/15/24 and plan was to return in 3-4 months for DFEx OU, OCT RNFL OU, and automated GVF. Add on visit today for drop irritation. Reports that he has noticed increase lower eyelid swelling as well as redness, more so associated with the green top drop that he uses 3x a day. ======= Drops: brim / latan / timolol Intolerant of dorzolamide (prolonged burning) intolerant of simbrinza ======= OD: 20/40-1 OS: 20/20 AUTO REFRACTION SUBJ: OD: +1.25 +0.25 88 OS: +0.50 +0.50 110 VISUAL ACUITY WITH AUTO REFRACTION: OD: 20/25-2 OS: 20/20-1 Ta 12/21/2425 09/15/202407/0304/14/24 1412/02/2306/04/2305/0712/07/2207/09/2204/0808/25/2007/0303/28/2106/0111/28/20 12.01/0209/26/2005/06 = MD check post-dilation. (07/01 Tt pre-dilation) 06/15/1907/0401/27/1907/0209/07/1808/0303/09/1809/03/1706/0417 9/11 11/21/16 12/12 8/22/16 14/16 7/13/16 13/14 ---- SLT OD 03/02 ---- 02/14/1612/27/1507/15/1508/0408/31/14 SLEx OU L/L mild ptosis/dermatochalasis OU C/S inferior injection OU, papillary reaction of inferior palpebral conj OU K Mild arcus otherwise clear OU AC d/q OU I R/R, no NVI L 1+/2+ NS OU with mild CS Fundus (12/21/24) CDR: 0.85 OD, 0.75 OS more thin superior and temporal Mac: macular RPE changes OU Periphery OK OU ======= CCT (prior): 613/614 Gonio (09/07/18): C-D40R 1+/2+ pigment OU G (08/25/21): Grade II-III OU with 1+/2+ pigment OU G (06/04/23): stable HVF 24-2 08/08/12 OD: Inferior nasal step and superior nasal step; low reliability OS: Early inferior nasal step; low reliability due to poor pt response F 12/2015 OD: INS (stable) OS: INS stable to very mild progression HVF 12/2015 OD: INS + progression OS: INS mild progression F 09/09 OD: in NS - MD stable [...] GVF, possible inferior arcuate, superior lid artifact GVF 12/21/24 OD: improved quality c/w previous - more limited crossing of isopters 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 normal foveal depression OU OCT RNFL 12/21/24 RE: polar and temporal thinning further thinning sup and inferiorly c/w 11/2023 LE: superior thinning - stable A/P: 69 year old 1. POAG/NTG OD>OS (moderate OD, mild OS) - Tmax - Angles open, Thick CCTs. +FHx (sisters) - Intolerant of dorzolamide (prolonged burning; and now suspect intolerant to simbrinza - HVF have been highly unreliable. First automated GVF on 09/15/24, has not had repeat to compare to - Large disc size overall - Prior SLT without much effect, but could attempt again if needed Continue to follow primarily with RNFL and IOP. If >18 or stil intolerant to drops, then consider next intervention (SLT, phaco-MIGS, Durysta). TODAY 12/21/24 IOP pre dilation 15/15 RNFL with superior changes OD, stable OS GVF much improved quality today tolerating brimonidine much better than simbrinza CPM plan: - continue brim 3/3, valentín 2/2, latan / - f/u 5 months for IOP check 2. Early cataracts OU - NVS, monitor - Consider phaco/goniotomy when the time comes 3. RE/P - Happy with uncorrected distance vision - Uses OTC readers RTC: 5 months for IOP check /es/ GEORGIE GOEL STAFF PHYSICIAN Signed: 12/21/2024 14:21 GEORGIE GOEL [facility]
--- OUTSIDE RECORDS SUMMARY | 2025-02-07 09:48 | XMS_ITS | Clinical Summary ---
Author Organization [facility] Address [address] [place] [address] Care Team Providers Care Seed Specialist Name Role Phone Alvarez Fleming DO Primary Care Provider [phone] Source Comments [facility],non-owned Affiliates and Associated Physician Practices is amultiple site organization consisting of ambulatory clinics and hospital sitesin [place], [place], [place] and [place]. This disclosure is being madepursuant to the Care Everywhere program and may not contain all information available regarding this patient. Last updated 18.[facility] Allergies Active Allergy Reactions Criticality Noted Date Comments Contrast-Iodinated Agents For Ct/Other 05/09/2013 Medications * Be aware that medications may not be up to date on this document. Alwaysverify current medications with the patient. rosuvastatin (CRESTOR) 20 MG tablet Take 20 mg by mouth once daily. Active timolol (ISTALOL) 0.5 % (DAILY) ophthalmic solution 1 Drop every morning. Active brinzolamide (AZOPT) 1 % ophthalmic suspension 1 Drop 3 times daily. Active latanoprost (XALATAN) 0.005 % ophthalmic solution 1 Drop at bedtime. Active buPROPion SR 12hr (WELLBUTRIN-SR) 100 MG tablet 2 times daily 8 Active brimonidine (ALPHAGAN) 0.2 % ophthalmic solution 8 Active timolol maleate (TIMOPTIC) 0.5 % ophthalmic solution 8 Active losartan (COZAAR) 50 MG tablet 8 Active atorvastatin (LIPITOR) 80 MG tablet Take 80 mg by mouth at bedtime Active Stapleton-3 Fatty Acids (FISH OIL) 1000 MG capsule Active gabapentin (NEURONTIN) 100 MG capsule Take 200 mg by mouth 3 times daily Active traMADol (ULTRAM) 50 MG tablet Take 50 mg by mouth every 6 hours as needed for Pain Active ciprofloxacin (CIPRO) 500 MG tablet Take 500 mg by mouth 2 times daily Active docusate sodium (COLACE) 100 MG capsule Take 100 mg by mouth once daily Active sildenafil (VIAGRA) 100 MG tablet Take 0.5 tablets by mouth once daily as needed 1 hour prior to intercourse 10 tablet 0 Active Active Problems Problem Noted Date Diagnosed Date Prostate cancer 08/08/2018 Hyperlipidemia 10/24/2014 Family History Medical History Relation Name Comments Cancer - Prostate Brother 1 Cancer - Prostate Brother 2 Lymphoma Father Cancer - Breast Mother Cancer - Breast Sister 1 Cancer - Breast Sister 2 Relation Name Status Comments Brother 1 Alive Brother 2 Alive Father Mother Sister 1 Sister 2 Social History Tobacco Use Types Packs/Day Years Used Date Smoking Tobacco: Former Cigarettes Smokeless Tobacco: Never Alcohol Use Standard Drinks/Week Comments No 0 (1 standard drink = 0.6 oz pur e alcohol) Sex and Gender Information Value Date Recorded Sex Assigned at Not on file Legal Sex Male 5:56 AM TOBACCO CURER Gender Identity Not on file Sexual Orientation Not on file Last Filed Vital Signs Vital Sign Reading Time Taken Comments Blood Pressure 163/91 08/29/2018 2:23 PM TOBACCO CURER Pulse 76 08/29/2018 2:23 PM TOBACCO CURER Temperature 37.2 C (99 F) 08/09/2017 11:41 AM TOBACCO CURER Respiratory Rate 16 08/09/2017 11:41 AM TOBACCO CURER Oxygen Saturation 97% 08/08/2018 1:59 PM TOBACCO CURER Inhaled Oxygen Concentration - - Weight 103.4 kg (228 lb) 05/15/2019 1:59 PM CDT Height 182.9 cm (6') 05/15/2019 1:59 PM CDT Body Mass Index 30.92 05/15/2019 1:59 PM CDT Plan of Treatment Health Maintenance Due Date Last Done Comments INEZ (AGES 45-75) - COL ON CA SCREENING 1956 COLON MONITORING 1956 COLONOSCOPY - COLON CA SCREENING 1956 CT COLONOGRAPHY - COLON CA SCREENING 1955 Colorectal Cancer Screening 1955 FIT - COLON CA SCREENING 1956 FLEX SIG - COLON CA SCREENING 1956 HEPATITIS C SCREENING 06/22/1974 DTAP/TDAP/TD VACCINES (1 - Tdap) 1975 PNEUMOCOCCAL VACCINE 50+ (1 of 1 - PCV) 2006 ZOSTER VACCINE (1 of 2) 2006 SCREENING FOR DIABETES 10/23/2017 10/23/2014 AAA SCREENING 2021 COVID-19 VACCINE (1 - 2023-2 5 season) 2024 DEPRESSION SCREENING 08/23/2024 INFLUENZA VACCINE (Season Ended) 2025 Respiratory Syncytial Virus (RSV) Vaccine Pt: or over 60 yrs (1 - 1-dose 75+ series) 2031 HEPATITIS B VACCINE Aged Out No longe r eligible based on patient's age to complete this topic HIB VACCINE Aged Out No longer eligi ble based on patient's age to complete this topic HPV VACCINE Aged Out No longer eligi ble based on patient's age to complete this topic MENINGOCOCCAL (Group B) VACC INE SHARED DECISION-MAKING Aged Out No longer eligibl e based on patient's age to complete this topic MENINGOCOCCAL GROUPS A/C/Y/W VACCINE Aged Out No longer eligible b ased on patient's age to complete this topic Procedures Procedure Name Priority Date/Time Associated Diagnosis Comments COMPREHENSIVE METABOLIC PANEL Routine 10/23/2014 3:31 PM TOBACCO CURER Routine general medical examination at a health care facility from Last 3 Months or Most Recently Relevant to Health Maintenance Results * COMPREHENSIVE METABOLIC PANEL (10/23/2014 3:31 PM TOBACCO CURER) Glucose 95 65 - 99 mg/dL [facility] ACCOUNT BILL BUN 16 6 - 24 mg/dL [facility] ACCOUNT BILL Creatinine 0.83 0.76 - 1.27 mg/dL [facility] ACCOUNT BILL eGFR by MDRD 97 >59 mL/min/1.7 3 [facility] ACCOUNT BILL eGFR by MDRD 112 >59 mL/min/1.7 3 [facility] ACCOUNT BILL BUN/Creatinine Ratio 19 9 - 20 [facility] ACCOUNT BILL Sodium 143 134 - 144 mmol/L [facility] ACCOUNT BILL Potassium 4.4 3.5 - 5.2 mmol/L [facility] ACCOUNT BILL Chloride 104 97 - 108 mmol/L [facility] ACCOUNT BILL CO2 22 18 - 29 mmol/L [facility] ACCOUNT BILL Calcium 9.8 8.7 - 10.2 mg/dL [facility] ACCOUNT BILL Protein Total 7.2 6.0 - 8.5 g/dL [facility] ACCOUNT BILL Albumin 4.7 3.5 - 5.5 g/dL [facility] ACCOUNT BILL Globulin Total 2.5 1.5 - 4.5 g/dL [facility] ACCOUNT BILL Albumin/Globulin Ratio 1.9 1.1 - 2.5 [facility] ACCOUNT BILL Bilirubin Total 0.2 0.0 - 1.2 mg/dL [facility] ACCOUNT BILL Alkaline Phosphatase 79 39 - 117 IU/L [facility] ACCOUNT BILL AST 32 0 - 40 IU/L [facility] ACCOUNT BILL ALT 41 0 - 44 IU/L [facility] ACCOUNT BILL Blood specimen (specimen) BLOOD SPECIMEN / Unknown 10/23/2014 3:31 PM TOBACCO CURER 10/23/2014 6:27 PM TOBACCO CURER Narrative Resulting Agency Comment [facility] [address] [id number] Alvarez Fleming DO LAB - CHEMISTRY ORDERABLES F inal Result [facility] ACCOUNT BILL [address] [place] [address] from Last 3 Months or Most Recently Relevant to Health Maintenance Insurance ANTHEM Care Teams Seed Specialist Relationship Specialty Start Date End Date Alvarez Fleming DO [address] [place] [address] PCP - General 09/02/09
--- OUTSIDE RECORDS SUMMARY | 2025-02-07 09:48 | XMS_ITS | Encounter Summary ---
Author Name [facility] [place] [facility] [place] [facility] [place] Address [address] [place] [address] Care Team Providers Care Laborer Landscape Name Role Phone CHITRA CASTANEDA Primary Care [...] Najera's Name Patient's Relationship to Policy Najera [facility] (WNR) MEDICARE ADVANTAGE [facility] (WNR) Jun 23, 2021 [id number] Devin GALINDO PATIENT Selected Encounter This section includes the information on record at [place] for the Encounter. Date/Time Encounter Type Encounter Description Reason Provider Source Mar 03, 2024 10:00 AM OFFICE O/P EST MOD 30 MIN PRIMARY CARE/MEDICINE ICD-10-CM I10 Essential (primary) hypertension ESTHER CASTANEDA IHAmarjit Encounter Template Text not used by [facility] Assessments - Encounter Diagnoses This section includes the primary and secondary diagnoses documented for the Encounter. Date/Time Primary/Secondary Diagnosis Diagnosis Name Provider Source Mar 03, 2024 10:19 AM PRIMARY Essential (primary) hypertension [facility] Mar 03, 2024 10:19 AM SECONDARY Hyperlipidemia, unspecified [facility]EL,[facility] Mar 03, 2024 10:19 AM SECONDARY Impaired fasting glucose [facility]EL,[facility] Mar 03, 2024 10:19 AM SECONDARY Male erectile dysfunction, unspecified [facility]ONEL,[facility] Mar 03, 2024 10:19 AM SECONDARY Malignant neoplasm of prostate [facility]EL,[facility] Mar 03, 2024 10:19 AM SECONDARY Other obesity LEONEL,[facility] Mar 03, 2024 10:19 AM SECONDARY Vitamin D deficiency, unspecified LEONEL,[facility] Plan of Treatment: Future Appointments (+ 6 months) and Future Tests (+/- 45 days) The Plan of Treatment section includes future care activities for the patient [facility] [place] [facility] This section includes future appointments and future orders which are active, pending or scheduled. Future Appointments This section includes appointments that were scheduled to occur 6 months from the date of the Encounter, up to a maximum of 20 appointments. The data comes from all [place] treatment facilities. Appointment Date/Time Appointment Type Appointme nt Facility Name Mar 09, 2024 01:00 PM AMBULATORY - NONE [facility] Apr 14, 2024 01:30 PM AMBULATORY - SURGERY [facility] May 18, 2024 01:30 PM AMBULATORY - PSYCHIATRY [facility] May 19, 2024 07:30 AM AMBULATORY - NONE [facility] Jun 20, 2024 01:00 PM AMBULATORY - PSYCHIATRY [facility] Jul 10, 2024 10:00 AM AMBULATORY - MEDICINE [facility] Jul 24, 2024 01:00 PM AMBULATORY - SURGERY [facility] Aug 01, 2024 11:30 AM AMBULATORY - PSYCHIATRY [facility] Vital Signs: All taken on the encounter date This section contains inpatient and outpatient Vital Signs collected on the date of the Encounter. Date/Time Temperature Pulse Blood Pressure Respiratory Rate SP02 Pain Height Weight Body Mass Index Source Mar 03, 2024 09:33 AM 98.2 66 124/80 18 97 0 72 217.9 30 [facility] Social History: Smoking Status (Most current) and Tobacco Use (All prior to encounter date) This section includes the most current, and the historical, smoking and tobacco- related health factors from the [place] facility where the Encounter took place. Current Smoking Status This section includes the most current smoking, or tobacco-related health factor, from the [place] facility where the Encounter took place. Date/Time Current Smoking Status Comment Facil ity May 26, 2023 09:30 AM VA-TOBACCO FORMER USER [facility] Tobacco Use History This section includes a history of the smoking, or tobacco-related health factors, that were collected on or before the date of the Encounter. The data comes from the [place] facility where the Encounter took place. Date/Time Smoking Status/Tobacco Use Comment F acility May 26, 2023 09:30 AM VA-TOBACCO QUIT 15 YRS OR MORE [facility] Aug 21, 2021 11:30 AM VA-TOBACCO FORMER USER [facility] Aug 21, 2021 11:30 AM VA-TOBACCO QUIT 15 YRS OR MORE [facility] December 31, 2017 12:42 PM QUIT TOBACCO >7 YEARS AGO [facility] Aug 27, 2017 10:19 AM QUIT TOBACCO >7 YEARS AGO [facility] Aug 24, 2017 11:31 AM QUIT TOBACCO >7 YEARS AGO [facility] Advance Directives: All historical and current Section Date Range: From patient's date of to the date document was created. This section includes ALL of a patient's completed or amended [place] Advance and Rescinded Directives. The entries below indicate that a directive exists for the patient, but an actual copy is not included with this document. The data comes from all [facility]. Date Advance Directives Provider Source Apr 02, 2016 ADVANCE DIRECTIVE DISCUSSION UDAY BREEN [facility] Encounter Notes: All associated encounter notes This section contains the clinical notes associated to the Encounter. Date/Time Encounter Note(s) Provider Source Mar 03, 2024 09:56 AM PRIMARY CARE NOTE: LOCAL TITLE: PRIMARY CARE PROVIDER ESTABLISHED VISIT ST STANDARD TITLE: PRIMARY CARE NOTE DATE OF NOTE: MAR 03, 2024@09:56 ENTRY DATE: MAR 03, 2024@09:57:10 AUTHOR: LEONEL,MOHAMMAD T EXP COSIGNER: URGENCY: STATUS: COMPLETED ESTABLISHED PATIENT [id number]: REASON FOR VISIT/CHIEF COMPLAINT: . Follow-up visit HPI: .Mr Galindo is 68 yrs old male . Patient came today for follow-up on chronic multiple medical condition He feels really good has lost some weight, waist size around 40 now used to be> 42 inches SHe said when eat feel full after one plate and the concern losing weight drinking Ensure in the morning we will exercise losing stationary bike and other excersice equipments he has at home and generally feels good Blood pressure well controlledon HCTZ12.5/Losartn 25mg a day day Has hyperlipidemia taking atorvastatin 80 mg a day as well as discussed continue to avoid saturated and low-fat diet continue exercise we will repeat fasting lipid panel before next visit He also has prediabetes last A1c 5.8 to 6.1% of discussion about sweets, avoiding juices and soda, high carbohydrate diet like potatoes, rice and certian fruits like grapes , watermelon, honeydew, oranges to eat in moderation as well as consider switching from Ensure to Glucerna he acknowledged understanding Continued exercise prostate CA - s/p RALP 04/2018 - has urinary incontinece since - wears liners in daytime and uses washcloth at night as it is more comfortable follow urology PAST MEDICAL HISTORY: 1) Hyperlipidemia (SNOMED CT 05230939) 2) Obesity (SNOMED CT 203283265) 3) Screening for Diabetes Mellitus (ICD-9-CM V77.1) 4) Impaired fasting glycaemia (SNOMED CT 370413746) 5) Open-Angle, Chronic 6) Encounter for Therapeutic Drug Monitoring (ICD-9-CM V58.83) 7) Hematospermia 8) Allergic rhinitis 9) Herpes zoster 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 MEDICATION RECONCILIATION: I have reviewed the patient's medication list with the patient and/or his/her care-mercury recoverer. Handwritten corrections, additions and/or deletions were made to the list. Corrected Outpatient Medication List was provided to the patient/caregiver. Active Outpatient Medications (including Supplies): Active Outpatient [...] ACTIVE BY MOUTH ONCE A DAY 5) FISH OIL 1000MG (500MG DHA/EPA) CAP TAKE TWO CAPSULES ACTIVE BY MOUTH TWICE A DAY 6) GABAPENTIN 100MG CAP TAKE TWO CAPSULES BY MOUTH THREE ACTIVE TIMES A DAY FOR POST HERPATIC NEURALGIA 7) HCTZ 12.5MG/LOSARTAN 50MG TAB TAKE 1 TABLET BY MOUTH ACTIVE EVERY MORNING FOR HIGH BLOOD PRESSURE TO LOWER BLOOD PRESSURE 8) LATANOPROST 0.005% OPH SOLN INSTILL 1 DROP IN BOTH ACTIVE EYES EVERY EVENING FOR GLAUCOMA. KEEP REFRIGERATED UNTIL READY TO USE, THEN STORE AT ROOM TEMPERATURE FOR MAXIMUM OF 42 DAYS. 9) LIDOCAINE 5% PATCH APPLY 1 PATCH TO SKIN SITE ONCE A ACTIVE DAY FOR PAIN. APPLY PATCH AND PRESS FIRMLY FOR 10-15 SECONDS. KEEP ON FOR 12 HOURS THEN REMOVE PATCH FOR 12 HOURS. 10) METHOCARBAMOL 500MG TAB TAKE 1 TABLET BY MOUTH THREE ACTIVE TIMES A DAY NEEDED FOR MUSCLE SPASM 11) SODIUM FLUORIDE 1.1% TOOTHPASTE USE DIRECTED BY ACTIVE MOUTH ONCE A DAY FOR DENTAL HEALTH TOOTHPASTE (DO NOT SWALLOW) 12) TADALAFIL 10MG TAB TAKE ONE TABLET BY MOUTH NEEDED ACTIVE FOR ERECTILE DYSFUNCTION (TAKE 30 MINUTES PRIOR TO SEXUAL ACTIVITY) - LIMIT 18 DOSES PER 90 DAYS 13) TIMOLOL MALEATE 0.5% OPH SOLN INSTILL 1 DROP IN BOTH ACTIVE EYES EVERY MORNING FOR GLAUCOMA. Active Non-VA Medications Status 1) Non-VA CICLOPIROX OLAMINE 0.77% TOP GEL SPARINGLY TO ACTIVE AFFECTED AREA(S) AT BEDTIME 2) Non-VA PAPAVERINE INJ INTRAMUSCULARLY NEEDED ACTIVE 15 Total Medications PHYSICAL EXAMINATION: Male General appearance: VITALS (most recent, as listed in the electronic record): B/P: 124/80 (03/03/2024 09:33) Pulse: 66 (03/03/2024 09:33) Temperature: 98.2 F [36.8 C] (03/03/2024 09:33) Weight: 217.9 lb [98.84 kg] (03/03/2024 09:33) Height: 72 in [182.9 cm] (03/03/2024 09:33) BMI: 29.6 Pain: 0 (03/03/2024 09:33) (0-10 scale) Physical findings: Mild Obeswce built male walk w/o gait dist in NAD HEENT:nc, at [place] ,[place] , Scler/conj clear ,OP clear Neck:Supple no jvd, no bruit Heart:S1 S2 , No S3 S4, RRR , systolic murmer appreciated Lungs:clear to auscultate no wheezing or rale , Abdomen:soft nt no HSM BS+ Ext:no leg edema Neuro:A & O x3 , no focal deficit DATA REVIEW: HbA1C: HGA1C 6.1 H % 11/23/2023 11:00 Lipid Panel: TRIGLYCERIDE 131 mg/dL 11/23/2023 11:00 CHOLESTEROL 217 H mg/dL 11/23/2023 11:00 HDL(New) 59 mg/dL 11/23/2023 11:00 CALCULATED LDL 132 mg/dL 11/23/2023 11:00 CMP: SODIUM 140 mEq/L 11/23/2023 11:00 POTASSIUM 3.9 mEq/L 11/23/2023 11:00 CHLORIDE 109 H mEq/L 11/23/2023 11:00 UREA NITROGEN 13.3 mg/dL 11/23/2023 11:00 CREATININE 0.99 mg/dL 11/23/2023 11:00 CALCIUM 9.7 mg/dL 11/23/2023 11:00 PROTEIN 7.4 g/dL 11/23/2023 11:00 ALBUMIN 4.2 g/dL 11/23/2023 11:00 ALKALINE PHOSPHATASE 118 U/L 11/23/2023 11:00 ALT/SGPT 20 U/L 11/23/2023 11:00 AST/SGOT 23 U/L 11/23/2023 11:00 TOTAL BILIRUBIN 0.5 mg/dL 11/23/2023 11:00 CARBON DIOXIDE 19 L mEq/L 11/23/2023 11:00 GLUCOSE 120 H mg/dL 11/23/2023 11:00 EGFR (CKD-EPI 2020) 83.5 11/23/2023 11:00 CBC: WBC 5.4 10*3/uL 11/23/2023 11:00 RBC [...] BASOPHILS, AUTO % 1 % 11/23/2023 11:00 IMMATURE GRANS, AUTO % 0.3 % 05/01/2022 11:47 NEUTROPHILS, ABSOLUTE 2.66 10*3/uL 11/23/2023 11:00 LYMPHOCYTES, ABSOLUTE 1.98 10*3/uL 11/23/2023 11:00 MONOCYTES, ABSOLUTE 0.48 10*3/uL 11/23/2023 11:00 EOSINOPHILS, ABSOLUTE 0.24 10*3/uL 11/23/2023 11:00 BASOPHILS, ABSOLUTE 0.03 10*3/uL 11/23/2023 11:00 IMMATURE GRANS, AUTO ABS 0.03 10*3/uL 05/01/2022 11:47 PSA: PROST. SPECIFIC AG.(PB-STL) <0.100 ng/mL 05/26/2023 11:08 TSH: No TSH (1YR) EO data found INR: No INR EO data found UA: URINE COLOR Yellow 11/23/2023 11:00 APPEARANCE Clear 11/23/2023 11:00 U.PH 5.5 11/23/2023 11:00 U.BILIRUBIN Negative mg/dL 11/23/2023 11:00 U.NITRITE Negative mg/dL 11/23/2023 11:00 URINE RBC/HPF 2 /HPF 11/23/2023 11:00 URINE WBC/HPF <1 /HPF 11/23/2023 11:00 MUCUS RARE /LPF 11/23/2023 11:00 CA OXYLATE CRYSTALS OCC /HPF 11/23/2023 11:00 Dilantin: ____ Digoxin: No data available for: DIGOXIN Chest x-ray: Impression for CHEST X-RAY, 2 VIEWS, 11/14/18, case 621 FINDINGS/IMPRESSION: Vessel on end versus small nodule over-projecting the right anterior third rib end. No acute pneumonia or pleural effusion. Scarring/fat pad at the left lung base. Lung volumes are maintained. Mild degenerative changes of the spine. No pneumothorax. EKG: No data available for: EKG CONSULT STL EKG CONSULTS PB EKG RESULTS MA Result: Above target Follow-up Action: Data results reviewed with patient and/or caregiver. ASSESSMENT/PLAN: 1) HTN -stable Continue with present antihypertensive medication BP goal < 140/90 -Continue avoid salty food and food like hot dog lunch meat canned food low sodium diet -Exercise daily - 2) HLD -not at goal Continue Atorvaststin 80 mga day -avoid saturated fat in ndiet - repeat 12 hrs FLP before next visit 3) Prediabetes -discussed in length avoid food high carbohydrate watch sweet and high carb diet , lose wt -excercise 4)ED Tadanafil 10mg pr week as directed He aware not to be on any nitrate compound Also aware tinnitus and NAION if experience. Medication immediately 5)Chronic low back pain - s/p surgery 1990 Stable - cont. Lidocain patch -use heating pad at home -Discussed stretch exercise 6) obstructive sleep apnea Using CPAP machine daily 7) soft systolic murmur denies any syncopal episode chest pain We will get TT echo to evaluate murmur RETURN TO CLINIC: Return to Clinic order placed SUMMARY STATEMENT: Plan of care has been discussed with including expected therapeutic benefits and potential side effects of prescribed medication and treatments. [place] verbalizes understanding and is in agreement with the plan of care. Patient was instructed to keep all scheduled appointments and contact motor equipment commanding officer for any additional problems. PREVENTION & SCREENING: Screen for Abd Aortic Aneurysm: A prior imaging procedure has been done that adequately screened for AAA. Date of Imaging: June 15, 2022 Comment: No sonographic evidence of abdominal aortic aneurysm. No abdominal aortic aneurysm. /sadaf/ Chitra Castaneda MD Staff Physician Signed: 03/03/2024 10:19 CHITRA CASTANEDA [facility] Mar 03, 2024 09:39 AM NURSING NOTE: LOCAL TITLE: V15 PACT FACE TO FACE NOTE ST STANDARD TITLE: NURSING NOTE DATE OF NOTE: MAR 03, 2024@09:39 ENTRY DATE: MAR 03, 2024@09:39:52 AUTHOR: KIRILL VAUGHN EXP COSIGNER: URGENCY: STATUS: COMPLETED Provider Visit: Patient Identifiers : Full Name Date of Reason for visit: Established Follow-Up Mode of Arrival: Ambulatory Allergy Review: IODINATED CONTRAST MEDIA, TRAVATAN Z, SLO-NIACIN TABLET, DORZOLAMIDE, COSOPT Allergy list reviewed and remains current. Recent Vital Signs: Temperature: 98.2 F [36.8 C] (03/03/2024 09:33) Pulse: 66 (03/03/2024 09:33) Respiration: 18 (03/03/2024 09:33) B/P: 124/80 (03/03/2024 09:33) Pain: 0 (03/03/2024 09:33) Wt: 217.9 lb [98.84 kg] (03/03/2024 09:33) Ht: 72 in [182.9 cm] (03/03/2024 09:33) BMI: 29.6 POX: 97% (03/03/2024 09:33) PERSONAL HEALTH INVENTORY Notes: No data available for PHI note titles PERSONAL HEALTH INVENTORY - MAP: Personal Health Inventory (Short) 06/28/2023 Phis What Do You Live For HEALTH [facility] 11/29/2023 Personal Health Plan [place], [place], [place] (MAP) my health 10/06/2023 Personal Health Plan [place], [place], [place] (MAP) be healthy eat better Would you like to discuss any personal problem, family problem, alcohol use, drug use, or a mental or emotional illness? No [facility] ([facility]), please select appointment type: Face to face: Yes- Done Contact provided Primary Care phone number and encouraged to call if any questions or concerns. Review that after hours nurse line [phone] and emergency room are available 15/03 for patient use. Contact verbalized good understanding. Learning Assessment: - * This patient's patient's learning ABILITIES, BARRIERS to learning, CULTURAL and YAZDANISM beliefs, and learning PREFERENCES were assessed. Following are findings of note: Patient reads with difficulty. Instructional material needs to be at low level of difficulty. Comment: glasses LANGUAGE Patient reports that [place] Irish is preferred language for healthcare. Patient reports learning preference is to refer to handouts. Patient reports learning preference is attending one-to-one or group demonstrations. Patient reports learning preference is looking at pictures or viewing videos. Patient reports learning preference is listening to audiotapes. /sadaf/ KIRILL VAUGHN LPN LICENSED PRACTICAL NURSE Signed: 03/03/2024 09:41 KIRILL VAUGHN [facility]
--- OUTSIDE RECORDS SUMMARY | 2025-02-07 09:48 | XMS_ITS | Encounter Summary ---
Author Name [facility] [place] Organization [facility] [place] Address [address] [place] [address] Care Team Providers Care Coconut Boiler Name Role Phone CHITRA CASTANEDA Primary Care [...] Najera's Name Patient's Relationship to Policy Najera [facility] (WNR) MEDICARE ADVANTAGE [employer] (WNR) Jun 23, 2021 [id number] Devin MITCHELL PATIENT Selected Encounter This section includes the information on record at [place] for the Encounter. Date/Time Encounter Type Encounter Description Reason Provider Source Nov 18, 2024 07:37 PM EMERGENCY DEPT VISIT [facility] EMERGENCY DEPT ICD-10-CM J20.9 Acute bronchitis, unspecified VU,ALBERTO D IHE Encounter Template Text not used by [place] Assessments - Encounter Diagnoses This section includes the primary and secondary diagnoses documented for the Encounter. Date/Time Primary/Secondary Diagnosis Diagnosis Name Provider Source Nov 18, 2024 10:37 PM PRIMARY Acute bronchitis, unspecified VU,ALBERTO D [facility] Plan of Treatment: Future Appointments (+ 6 months) and Future Tests (+/- 45 days) The Plan of Treatment section includes future care activities for the [facility] [place] [facility] This section includes future appointments and future orders which are active, pending or scheduled. Future Appointments This section includes appointments that were scheduled to occur 6 months from the date of the Encounter, up to a maximum of 20 appointments. The data comes from all [facility]. Appointment Date/Time Appointment Type Appointme nt Facility Name Dec 12, 2024 10:00 AM AMBULATORY - NONE [facility] December 21, 2024 01:30 PM AMBULATORY - SURGERY [facility] Jan 22, 2025 01:30 PM AMBULATORY - PSYCHIATRY [facility] Feb 12, 2025 01:30 PM AMBULATORY - MEDICINE [facility] Mar 12, 2025 01:00 PM AMBULATORY - NONE [facility] May 01, 2025 01:30 PM AMBULATORY - PSYCHIATRY [facility] May 17, 2025 02:00 PM AMBULATORY - SURGERY [facility] Active, Pending, and Scheduled Orders This section includes a listing of several types of active, pending, and scheduled orders, including clinic medications orders, diagnostic test orders, procedure orders and consult orders; where the start date of the order is 45 days before the date of the Encounter or 45 days after the date of theEncounter. The data comes from all [facility]. Test Date/Time Test Type Test Details Facility Name Dec 12, 2024 12:00 AM Laboratory - Chemi stry Order OCCULT BLOOD FIT X1 SCREEN STOOL FECES SP [facility] Lab Results: +/- 30 days of the encounter This section includes the Chemistry and Hematology Lab Results on record with [place] for the patient. Radiology Reports and Pathology Reports are provided separately, in subsequent sections. Lab Results This section contains the Chemistry/Hematology Results that were resulted 30 days before or 30 daysafter the date of the Encounter. Date/Time Source Result Type Result - Unit Interpretation Reference Range Specimen Type Comment Dec 04, 2024 11:00 AM [facility] OCCULT BLOOD FIT X1 SCREEN FECES Specimen Typ e: FECES No comment entered. Ordering Provider: CHITRA CASTANEDA Report Released Date/Time: Nov 07, 2024 03:30 PM Reporting Lab: [facility] [address] [facility] [id number] Performing Lab: [facility] [address] [facility] [id number] OCCULT BLOOD (FIT) #1 OF 1 Negative Nega tive Nov 18, 2024 08:[address] [facility] COVID-19 DIAGNOSTIC (FLU/RSV)(STL) NASOPHARYNX Spec imen Type: [...] Nov 18, 2024 08:03 PM Reporting Lab: [facility] [address] [facility] [id number] Performing Lab: [facility] [address] [place] [id number] INFLUENZA A NEG Negative INFLUENZA B NEG Negative COVID-19 (STL-PB) NEG Not Detected RSV (Cepheid) Negative Negative Vital Signs: All taken on the encounter date This section contains inpatient and outpatient Vital Signs collected on the date of the Encounter. Date/Time Temperature Pulse Blood Pressure Respiratory Rate SP02 Pain Height Weight Body Mass Index Source Nov 18, 2024 07:39 PM 98.5 64 156/[address] [facility] Social History: Smoking Status (Most current) and [...] 18, 2024 01:04 PM VA-TOBACCO FORMER USER [facility] Tobacco Use History This section includes a history of the smoking, or tobacco-related health factors, that were collected on or before the date of the Encounter. The data comes from the [place] facility where the Encounter took place. Date/Time Smoking Status/Tobacco Use Comment F acility May 18, 2024 01:04 PM VA-TOBACCO QUIT 15 YRS OR MORE [facility] December 30, 2018 07:34 PM LIFETIME NON-USER OF TOBACCO [facility] May 03, 2018 05:45 PM LIFETIME NON-USER OF TOBACCO [facility] May 13, 2016 03:31 PM LIFETIME NON-USER OF TOBACCO [facility] Mar 12, 2015 01:23 PM QUIT TOBACCO >7 YEARS AGO [facility] January 12, 2014 10:16 AM LIFETIME NON-USER OF TOBACCO [facility] Mar 02, 2013 11:09 AM QUIT TOBACCO >7 YEARS AGO [facility] Jul 26, 2008 02:17 PM QUIT TOBACCO >7 YEARS AGO [facility] Advance Directives: All historical and current Section Date Range: From patient's date of to the date document was created. This section includes ALL of a patient's completed or amended [place] Advance and Rescinded Directives. The entries below indicate that a directive exists for the patient, but an actual copy is not included with this document. The data comes from all [facility]. Date Advance Directives Provider Source Apr 02, 2016 ADVANCE DIRECTIVE DISCUSSION UDAY BREEN [facility] Radiology Reports: +/- 30 days of the [...] the Encounter. The data comes from all [place] treatment facilities. Date/Time Radiology Report Provider Source Nov 18, 2024 07:46 PM CHEST X-RAY, 2 VIE WS: TRA MITCHELL [id number] -[id number] M Exm Date: NOV 18, 2024@19:46 Req Phys: NEVA,ALBERTO Santoyo Pat Loc: [facility]Y DEPT 3RD SHIFT (R Img Loc: [facility]MAIN RADIOLOGY SUITE Service: Unknown [facility], [address] [place] [address] (Case [id number] COMPLETE) CHEST X-RAY, 2 VIEWS (RAD Detailed) CPT:18408 Reason for Study: PNA rule out Clinical History: Report Status: Verified Date Reported: NOV 18, 2024 Date Verified: NOV 18, 2024 Distance Education Faculty Liaison E-Sig: Report: Procedure: CHEST X-RAY, 2 VIEWS Clinical history: PNA rule out Comparison: Chest x-rays of November 14, 2018. Technique: The study was protocoled and supervised at the local [place] facility. Study was sent to [place] national teleradiology program (NTP) for interpretation. Frontal [...] recent exams. READING PHYSICIAN: Pepe Watson M.D. -[id number] 11/18/2024 15:35 [facility] National Teleradiology Program [phone] (For Medical Practitioner Use Only) Attention Patients / Veterans: If you have questions or concerns about these test results, please contact your ordering provider or primary care team. Primary Interpreting Staff: RADIOLOGY,OUTSIDE SERVICE, Staff Physician / RADIOLOGY,OUTSIDE SERVICE [facility] Encounter Notes: All associated encounter notes This section contains the clinical notes associated to the Encounter. Date/Time Encounter Note(s) Provider Source Nov 18, 2024 08:03 PM PHYSICIAN EMERGENC Y DEPT NOTE: LOCAL TITLE: EMERGENCY DEPARTMENT [facility] STANDARD TITLE: PHYSICIAN EMERGENCY DEPT NOTE DATE OF NOTE: NOV 18, 2024@20:03 ENTRY DATE: NOV 18, 2024@20:03:59 AUTHOR: ALBERTO HOOKS EXP COSIGNER: URGENCY: STATUS: COMPLETED TRIAGE CHIEF COMPLAINT: Cough, congestion HPI: Patient is a 69-year-old male presents for evaluation for the above concerns. The patient started feeling ill about 10 days ago. At that time, the patient had problems with cough, sore throat, congestion. The patient's that he was coughing up some yellowish sputum. He denies any obvious fever, chills, shortness of breath. Given his symptoms, the patient apparently went to an urgent care on November 13 for evaluation. At that time, the patient was tested for COVID-19, influenza, and strep throat which were all negative. He was diagnosed with an upper respiratory infection and was given prescription for prednisone 40 mg daily x 5 days, and Promethazine DM. He took the prednisone as directed and also has been taking the practicing. Overall, his symptom has improved but is still persistent, and therefore he was concerned and wanted to be reevaluated. The patient tells me that a few years ago, he had similar symptoms and was diagnosed with pneumonia at that time. Therefore, he is wanting to make sure that he does not have pneumonia. REVIEW OF SYSTEMS: See HPI for further details. All 10 systems reviewed and otherwise negative unless otherwise detailed herein. PAST MEDICAL HISTORY: 1) Hyperlipidemia (SNOMED CT 79361329) 2) Obesity (SNOMED CT 243090141) 3) Screening for Diabetes Mellitus (ICD-9-CM V77.1) 4) Impaired fasting glycaemia (SNOMED CT 227591880) 5) Open-Angle, Chronic 6) Encounter for Therapeutic Drug Monitoring (ICD-9-CM V58.83) 7) Hematospermia 8) Allergic rhinitis 9) Herpes zoster 10) Normal tension glaucoma 11) Recurrent depression 12) Admits alcohol use 13) Ventral hernia 14) Erectile dysfunction following radical prostatectomy (SNOMED CT 997593092204757) 15) Benign essential hypertension 16) History of malignant neoplasm of prostate 17) Vitamin D deficiency CURRENT MEDICATIONS: Active Outpatient Medications (including Supplies): Active Outpatient Medications Status = 1) ATORVASTATIN CALCIUM 80MG TAB TAKE ONE TABLET BY MOUTH EVERY ACTIVE EVENING REPORT ANY UNEXPLAINED MUSCLE PAIN/WEAKNESS TO PROVIDER. Indication: FOR HIGH CHOLESTEROL 2) BRIMONIDINE 0.2%/BRINZOLAMID 1% OPH SUSP INSTILL 1 DROP IN ACTIVE BOTH EYES THREE TIMES A DAY FOR GLAUCOMA 3) BRIMONIDINE TARTRATE 0.2% OPH SOLN INSTILL 1 DROP IN BOTH ACTIVE EYES THREE TIMES A DAY Indication: FOR GLAUCOMA 4) BUPROPION HCL 150MG 24HR SA TAB TAKE ONE TABLET BY MOUTH ACTIVE ONCE A DAY SWALLOW WHOLE - DO NOT CRUSH OR CHEW. Indication: FOR DEPRESSION 5) CHOLECALCIF 50MCG (D3-2,000UNIT) TAB TAKE ONE TABLET BY ACTIVE (S) MOUTH ONCE A DAY Indication: FOR VITAMIN D DEFICIENCY 6) GABAPENTIN 100MG CAP TAKE TWO CAPSULES BY MOUTH THREE TIMES ACTIVE A DAY Indication: FOR NERVE PAIN 7) HCTZ 12.5MG/LOSARTAN 50MG TAB TAKE 1 TABLET BY MOUTH EVERY ACTIVE (S) MORNING Indication: FOR HIGH BLOOD PRESSURE 8) LATANOPROST 0.005% OPH SOLN INSTILL 1 DROP IN BOTH EYES ACTIVE EVERY EVENING FOR GLAUCOMA. KEEP REFRIGERATED UNTIL READY TO USE, THEN STORE AT ROOM TEMPERATURE FOR MAXIMUM OF 42 DAYS. 9) MELATONIN 1MG CAP/TAB TAKE TWO CAP/TAB BY MOUTH AT BEDTIME ACTIVE NEEDED Indication: FOR SLEEP 10) METHOCARBAMOL 500MG TAB TAKE 1 TABLET BY MOUTH AT BEDTIME ACTIVE Indication: FOR MUSCLE SPASM 11) NALTREXONE (EQV-REVIA) 50MG TAB TAKE ONE TABLET BY MOUTH ACTIVE ONCE A DAY Indication: FOR ASSISTANCE WITH DEPENDENCY 12) TIMOLOL MALEATE 0.5% OPH SOLN INSTILL 1 DROP IN BOTH EYES ACTIVE EVERY MORNING FOR GLAUCOMA. Active Non-VA Medications Status = 1) Non-VA CICLOPIROX OLAMINE 0.77% TOP GEL SPARINGLY TO ACTIVE AFFECTED AREA(S) AT BEDTIME 2) Non-VA NALTREXONE (EQV-REVIA) 50MG TAB 25MG BY MOUTH ONCE A ACTIVE DAY FOR 7 DAYS THEN 50MG BY MOUTH ONCE A DAY Indication: FOR ASSISTANCE WITH DEPENDENCY 3) Non-VA PAPAVERINE INJ INTRAMUSCULARLY NEEDED ACTIVE 15 Total Medications No medications found.. I have reviewed the patient's medication list with the patient and/or his/her care-chair and couch maker. Any medication discrepancies have been resolved. Patient will be provided with an updated list of his/her medication(s). SURGICAL HISTORY: not pertinent FAMILY HISTORY: not pertinent SOCIAL HISTORY: Social History Main Topics: Smoking status: No data available for: Current Tobacco User Alcohol Use: not indorsed ____ Illicit Drug Use: not indorsed Sexual Activity: Other Topics of Concern: Child bearing age: N/A LMP: N/A possible: N/A ALLERGIES: Review of patient's allergies indicates: IODINATED CONTRAST MEDIA, TRAVATAN Z, SLO-NIACIN TABLET, DORZOLAMIDE, COSOPT PHYSICAL EXAM: VITAL SIGNS: 156/89 (11/18/2024 19:39)64 (11/18/2024 19:39)96% (11/18/2024 19:39)98.5 F [36.9 C] (11/18/2024 19:39)16 (11/18/2024 19:39)The OBJECT WEIGHT LAST 3 was NOT found...Contact IRM. MAThe OBJECT was NOT found...Contact IRM.PAIN ASSESSMENTThe OBJECT was NOT found...Contact IRM. No data available for: PAIN CONSTITUTIONAL: No acute distress, Non-toxic appearance HENT: airway patent EYES: Conj pink, sclera clear NECK: Normal range of motion, No tenderness, Supple, No stridor, No LAD. CARDIOVASCULAR: Normal heart rate, Normal rhythm, No murmurs, No rubs, No gallops. PULMONARY/CHEST: CTA bilaterally, thorax stable without tenderness ABDOMEN: Bowel sounds normal, Soft, flat, No tenderness, No bruit, No masses, No pulsatile masses BACK: No tenderness, No CVA tenderness : RECTAL: EXTREMITIES: Normal range of motion, Intact distal pulses, No edema, No tenderness NEUROLOGIC: Alert & oriented/reactive, Normal motor function, Normal gait, no ataxia, No focal deficits appreciated on cursory screening exam SKIN: Warm, Dry, No erythema, No rash LABS: RADIOLOGY: CHEST X-RAY, 2 VIEWS Exm Date: NOV 18, 2024@19:46 Req Phys: NEVA,ALBERTO D Pat Loc: -EMERGENCY DEPT 3RD SHIFT (R Img Loc: -MAIN RADIOLOGY SUITE Service: Unknown [facility] [address] [place] [address] (Case [id number] COMPLETE) CHEST X-RAY, 2 VIEWS (RAD Detailed) CPT:72405 Reason for Study: PNA rule out Clinical History: Report Status: Verified Date Reported: NOV 18, 2024 Date Verified: NOV 18, 2024 Distance Education Faculty Liaison E-Sig: Report: Procedure: CHEST X-RAY, 2 VIEWS Clinical history: PNA rule out Comparison: Chest x-rays of November 14, 2018. Technique: The study was protocoled and supervised at the local [place] facility. Study was sent to [place] national teleradiology program (NTP) for interpretation. Frontal [...] recent exams. READING PHYSICIAN: Pepe Watson M.D. -[id number] 11/18/2024 15:35 [facility] National Teleradiology Program [phone] (For Medical Practitioner Use Only) Attention Patients / Veterans: If you have questions or concerns about these test results, please contact your ordering provider or primary care team. Primary Interpreting Staff: RADIOLOGY,OUTSIDE SERVICE, Staff Physician / Select an imaging exam... ECG IMPRESSION: ED Interpretation- ED COURSE & MEDICAL DECISION MAKIN:05-all result discussed. All plans discussed. All questions answered. Patient comfortable treatment at this time. Nursing notes, medications, vital signs, allergies and pertinent labs & imaging studies reviewed (see chart for details) with lab results reviewed with patient and family/caregivers at bedside and radiology results reviewed with patient and any family/caregivers at bedside. Stable, alert, nontoxic, nonfocal with clinically apparent acute bronchitis. Ongoing symptoms for 10 days. Patient once again tested negative for influenza, RSV, COVID-19. At this time, given his age and comorbidities and symptoms, best to cover empirically for acute bacterial bronchitis. Will therefore prescribe azithromycin along with benzonatate that he can take along with his Promethazine DM that he still has leftover. Red flags given for ED return such as worsening shortness of breath. Shared decision making with patient who is comfortable treatment plans at this time. Clinical information obtained from an independent historian. History obtained from or confirmed by: ___spouse ___parent ___guardian ___family ___friend ___EMS ___other: Discussed with radiology regarding test interpretation: I performed an independent interpretation of: ___EKG ___rhythm strip _x__plain x-ray ___ultrasound ___CT scan ___MRI ___other Patient's care impacted by: ___Diabetes x ___Hypertension ___Cancer ___other: Patient's care is significantly limited by social determinants of health including, but not limited to: ___inadequate housing ___low income ___alcoholism and drug addiction in family ___problems related to primary support group ___unemployment ___problems with employment ___language barrier ___lack of transportation ___psychiatric disease ___other social determinants of health: External records reviewed: ___Inpatient records ___office records _x__outpatient records _x__prior outpatient labs x ___prior outpatient radiology ___primary care record ___outside ED record ___PMD referral ___outside ER ___urgent care referral ___other: Management of the patient was discussed with: ___Hospitalist ___consultant ___behavioral health provider ___primary care provider ___other: The following testing was considered but ultimately was not performed after discussion with the patient/family: I considered prescription management with the following but ultimately did not prescribe: ___pain medication ___antiviral ___antibiotic ___other: I considered admission/ observation but decided upon discharge due to: CIRCUITS ENGINEER SERVICE/TIME: MEDICATIONS GIVEN IN ED: [ ] YES [ x ] NO DIFFERENTIAL DIAGNOSES CONSIDERED: Acute bronchitis versus pneumonia versus viral URI versus allergic rhinitis versus COVID-19 versus influenza DECISION to ADMIT / DISCHARGE TIME: DISPOSITION CONDITION:[ x ] Improved [ ] Unchanged [ ] Deteriorated CLINICAL IMPRESSION: 1 -acute bronchitis 2 - 3 - Please note that this dictation was completed with computer voice recognition software, often unanticipated grammatical, syntax and other interpretive errors are inadvertently transcribed by the computer software. Please disregard these errors. DISCHARGE INSTRUCTIONS AND PATIENT-DIRECTED FOLLOW-UP RECOMMENDATIONS: DIET: regular ACTIVITY: ad herb NEW MEDS: Ricardo-Jesus Daniel MEDICATION RECONCILIATION: CONTINUE ALL PRESCRIBED MEDICATIONS DIRECTED EXCEPT: FOLLOW-UP WITH PRIMARY APPLICATION TECHNICIAN/SPECIALIST: routine in 1-2 weeks if not improving, sooner if worse RETURN TO EMERGENCY: if any worries or concerns ADDITIONAL SIGNATURE PCP: [ x] YES [ ] NO [ ] not listed Active Outpatient Medications (including Supplies): Active Outpatient Medications Status = 1) ATORVASTATIN CALCIUM 80MG TAB TAKE ONE TABLET BY MOUTH EVERY ACTIVE EVENING REPORT ANY UNEXPLAINED MUSCLE PAIN/WEAKNESS TO PROVIDER. Indication: FOR HIGH CHOLESTEROL 2) BRIMONIDINE 0.2%/BRINZOLAMID 1% OPH SUSP INSTILL 1 DROP IN ACTIVE BOTH EYES THREE TIMES A DAY FOR GLAUCOMA 3) BRIMONIDINE TARTRATE 0.2% OPH SOLN INSTILL 1 DROP IN BOTH ACTIVE EYES THREE TIMES A DAY Indication: FOR GLAUCOMA 4) BUPROPION HCL 150MG 24HR SA TAB TAKE ONE TABLET BY MOUTH ACTIVE ONCE A DAY SWALLOW WHOLE - DO NOT CRUSH OR CHEW. Indication: FOR DEPRESSION 5) CHOLECALCIF 50MCG (D3-2,000UNIT) TAB TAKE ONE TABLET BY ACTIVE (S) MOUTH ONCE A DAY Indication: FOR VITAMIN D DEFICIENCY 6) GABAPENTIN 100MG CAP TAKE TWO CAPSULES BY MOUTH THREE TIMES ACTIVE A DAY Indication: FOR NERVE PAIN 7) HCTZ 12.5MG/LOSARTAN 50MG TAB TAKE 1 TABLET BY MOUTH EVERY ACTIVE (S) MORNING Indication: FOR HIGH BLOOD PRESSURE 8) LATANOPROST 0.005% OPH SOLN INSTILL 1 DROP IN BOTH EYES ACTIVE EVERY EVENING FOR GLAUCOMA. KEEP REFRIGERATED UNTIL READY TO USE, THEN STORE AT ROOM TEMPERATURE FOR MAXIMUM OF 42 DAYS. 9) MELATONIN 1MG CAP/TAB TAKE TWO CAP/TAB BY MOUTH AT BEDTIME ACTIVE NEEDED Indication: FOR SLEEP 10) METHOCARBAMOL 500MG TAB TAKE 1 TABLET BY MOUTH AT BEDTIME ACTIVE Indication: FOR MUSCLE SPASM 11) NALTREXONE (EQV-REVIA) 50MG TAB TAKE ONE TABLET BY MOUTH ACTIVE ONCE A DAY Indication: FOR ASSISTANCE WITH DEPENDENCY 12) TIMOLOL MALEATE 0.5% OPH SOLN INSTILL 1 DROP IN BOTH EYES ACTIVE EVERY MORNING FOR GLAUCOMA. Active Non-VA Medications Status = 1) Non-VA CICLOPIROX OLAMINE 0.77% TOP GEL SPARINGLY TO ACTIVE AFFECTED AREA(S) AT BEDTIME 2) Non-VA NALTREXONE (EQV-REVIA) 50MG TAB 25MG BY MOUTH ONCE A ACTIVE DAY FOR 7 DAYS THEN 50MG BY MOUTH ONCE A DAY Indication: FOR ASSISTANCE WITH DEPENDENCY 3) Non-VA PAPAVERINE INJ INTRAMUSCULARLY NEEDED ACTIVE 15 Total Medications /es/ Alberto D. MD [facility] Staff Physician Signed: 11/18/2024 22:20 ALBERTO HOOKS [facility]
--- OUTSIDE RECORDS SUMMARY | 2025-02-07 09:48 | XMS_ITS | Encounter Summary ---
Author Name [facility] Address [address] [place] [address] Care Team Providers Care Electrician Chief Name Role Phone CHITRA CASTANEDA Primary Care [...] Najera's Name Patient's Relationship to Policy Najera [facility] (WNR) MEDICARE ADVANTAGE [facility] (WNR) Jun 23, 2021 [id number] Devin MITCHELL PATIENT Selected Encounter This section includes the information on record at [place] for the Encounter. Date/Time Encounter Type Encounter Description Reason Provider Source Apr 14, 2024 01:30 PM OFFICE O/P EST LOW 20 MIN OPHTHALMOLOGY ICD-10-CM H40.1131 Primary open-angle glaucoma, bilateral, mild stage JEEVAN MCCAULEY IHAmarjit Encounter Template Text not used by [facility] Assessments - Encounter Diagnoses This section includes the primary and secondary diagnoses documented for the Encounter. Date/Time Primary/Secondary Diagnosis Diagnosis Name Provider Source Apr 14, 2024 02:07 PM PRIMARY Primary open-angle glaucoma, bilateral, mild stage ASHOK,SIDDHA [facility] Plan of Treatment: Future Appointments (+ 6 months) and Future Tests (+/- 45 days) The Plan of Treatment section includes future care activities for the patient from [facility] [place] [facility]. This section includes future appointments and future orders which are active, pending or scheduled. Future Appointments This section includes appointments that were scheduled to occur 6 months from the date of the Encounter, up to a maximum of 20 appointments. The data comes from all [place] treatment facilities. Appointment Date/Time Appointment Type Appointme nt Facility Name May 18, 2024 01:30 PM AMBULATORY - PSYCHIATRY [facility] May 19, 2024 07:30 AM AMBULATORY - NONE [facility] Jun 20, 2024 01:00 PM AMBULATORY - PSYCHIATRY [facility] Jul 10, 2024 10:00 AM AMBULATORY - MEDICINE [facility] Jul 24, 2024 01:00 PM AMBULATORY - SURGERY [facility] Aug 01, 2024 11:30 AM AMBULATORY - PSYCHIATRY [facility] Sep 15, 2024 01:00 PM AMBULATORY - SURGERY [facility] Social History: Smoking Status (Most current) and Tobacco Use (All prior to encounter date) This section includes the most current, and the historical, smoking and tobacco- related health factors from the [place] facility where the Encounter took place. Current Smoking Status This section includes the most current smoking, or tobacco-related health factor, from the [place] facility where the Encounter took place. Date/Time Current Smoking Status Comment Parvez reynoso December 30, 2018 07:34 PM LIFETIME NON-USER OF TOBACCO [facility] Tobacco Use History This section includes a history of the smoking, or tobacco-related health factors, that were collected on or before the date of the Encounter. The data comes from the [place] facility where the Encounter took place. Date/Time Smoking Status/Tobacco Use Comment F pb May 03, 2018 05:45 PM LIFETIME NON-USER OF TOBACCO [facility] May 13, 2016 03:31 PM LIFETIME NON-USER OF TOBACCO [facility] Mar 12, 2015 01:23 PM QUIT TOBACCO >7 YEARS AGO [facility] January 12, 2014 10:16 AM LIFETIME NON-USER OF TOBACCO [facility] Mar 02, 2013 11:09 AM QUIT TOBACCO >7 YEARS AGO [facility] Jul 26, 2008 02:17 PM QUIT TOBACCO >7 YEARS AGO [facility] Advance Directives: All historical and current Section Date Range: From patient's date of to the date document was created. This section includes ALL of a patient's completed or amended [facility] Advance and Rescinded Directives. The entries below indicate that a directive exists for the patient, but an actual copy is not included with this document. The data comes from all [place] facilities. Date Advance Directives Provider Source Apr 02, 2016 ADVANCE DIRECTIVE DISCUSSION UDAY BREEN [facility] Encounter Notes: All associated encounter notes This section contains the clinical notes associated to the Encounter. Date/Time Encounter Note(s) Provider Source Apr 14, 2024 01:50 PM OPHTHALMOLOGY CONS ULT: LOCAL TITLE: OPHTHALMOLOGY CONSULT STL STANDARD TITLE: OPHTHALMOLOGY CONSULT DATE OF NOTE: APR 14, 2024@13:50 ENTRY DATE: APR 17, 2024@07:45:35 AUTHOR: STEPHENIE KINGSLEY EXP COSIGNER: URGENCY: STATUS: COMPLETED Administratively completing HVF consult. See provider interpretation below. 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 Signed: 04/17/2024 07:45 STEPHENIE KINGSLEY [facility] Apr 14, 2024 01:45 PM OPHTHALMOLOGY NOTE : LOCAL TITLE: OPHTHALMOLOGY NOTE STL STANDARD TITLE: OPHTHALMOLOGY NOTE DATE OF NOTE: APR 14, 2024@13:45 ENTRY DATE: APR 14, 2024@13:45:52 AUTHOR: SANDRITA PULIDO EXP COSIGNER: URGENCY: STATUS: COMPLETED GLAUCOMA NOTE Stable - using drops as directed, Feels he may miss afternoon dose 1x/wk ======= Drops: Simbrinza TID OU -- used today Timolol QAM OU -- used today Latan QHS OU -- used last night Intolerant of dorzolamide (prolonged burning) ======= CCT (prior): 613/614 Gonio (09/07/18): [id number] [...] arcuate OS: unreliable with nasal nonspecific defects 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 (07/01 Tt pre-dilation) 06/15/1907/0401/27/1907/0209/07/1808/0303/09/1809/03/1706/0403/01/1705/0307/13/1608/0304/13/1603/04/16 ---- SLT OD 03/02 ---- 02/14/1612/27/1507/15/1508/0408/31/14 SLEx OU L/L Ptosis/dermatochalasis OU C/S w/q OU K Mild arcus otherwise clear OU AC d/q OU I R/R, no NVI L 1+/2+ NS OU with mild CS Fundus (last DFEx 12/02/23) CDR: 0.85 OD, 0.75 OS more thin superior and temporal Mac: macular RPE changes OU Periphery OK OU OCT (12/02/23): thin OD>OS. Mild VMT OD. normal foveal depression OU A/P: 68 year old 1. 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 +FHx (sisters) - Intolerant of dorzolamide (prolonged burning) - Last HVF with variability but likely stable - Cannot follow with HVF. 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 If >18, then consider next intervention (SLT, phaco- MIGS, Durysta) - Continue lat QHS, valentín QAM, and Simbrinza TID OU - RTC 4-6 months for Automated GVF 2. Early cataracts OU - NVS, monitor - BCVA 20/20 OU - Consider phaco/goniotomy when the time comes 3. RE/P - Happy with uncorrected distance vision - Uses OTC readers - RTC 4-6 months for Automated GVF OU. Right eye first /es/ SANDRITA PULIDO Staff Stock Hanger Signed: 04/14/2024 14:07 SANDRITA PULIDO [facility]
--- OUTSIDE RECORDS SUMMARY | 2025-02-07 09:48 | XMS_ITS | Encounter Summary ---
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 Date/Time Encounter Type Encounter Description Reason Provider Source Jul 10, 2024 10:00 AM OFFICE O/P EST MOD 30 MIN PRIMARY CARE/MEDICINE ICD-10-CM I10 Essential (primary) hypertension ESTHER CASTANEDA IHAmarjit Encounter Template Text not used by [facility] Assessments - Encounter Diagnoses This section includes the primary and secondary diagnoses documented for the Encounter. Date/Time Primary/Secondary Diagnosis Diagnosis Name Provider Source Jul 10, 2024 10:51 AM PRIMARY Essential (primary) hypertension CHITRA CASTANEDA [facility] Jul 10, 2024 10:51 AM SECONDARY Hyperlipidemia, unspecified [facility] Jul 10, 2024 10:51 AM SECONDARY Impaired fasting [facility] Jul 10, 2024 10:51 AM SECONDARY Vitamin D deficiency, unspecified [facility]ONEL,[facility] Plan of Treatment: Future Appointments (+ 6 months) and Future Tests (+/- 45 days) The Plan of Treatment section includes future care activities for the [facility] This section includes future appointments and future orders which are active, pending or scheduled. Future Appointments This section includes appointments that were scheduled to occur 6 months from the date of the Encounter, up to a maximum of 20 appointments. The data comes from all [place] treatment facilities. Appointment Date/Time Appointment Type Appointme nt Facility Name Jul 24, 2024 01:00 PM AMBULATORY - SURGERY [facility] Aug 01, 2024 11:30 AM AMBULATORY - PS[facility]IATRY [facility] Sep 15, 2024 01:00 PM AMBULATORY - SURGERY [facility] Oct 31, 2024 01:00 PM AMBULATORY - PSYCHIATRY [facility] Nov 07, 2024 03:00 PM AMBULATORY - MEDICINE [facility] Nov 09, 2024 01:30 PM AMBULATORY - SURGERY [facility] Nov 18, 2024 07:37 PM AMBULATORY - MEDICINE [facility] Dec 12, 2024 10:00 AM AMBULATORY - NONE . [facility] December 21, 2024 01:30 PM AMBULATORY - SURGERY [facility] Lab Results: +/- 30 days of the encounter This section includes the Chemistry and Hematology Lab Results on record with NE for the patient. Radiology Reports and Pathology Reports are provided separately, in subsequent sections. Lab Results This section contains the Chemistry/Hematology Results that were resulted 30 days before or 30 daysafter the date of the Encounter. Date/Time Source Result Type Result - Unit Interpretation Reference Range Specimen Type Comment Jul 05, 2024 11:54 AM [facility] VITAMIN D, 25-HYDROXY SERUM Specimen Type: SERUM No comment entered. Ordering Provider: CHITRA CASTANEDA Report Released Date/Time: Mar 03, 2024 10:21 AM Reporting Lab: [facility] [address] [place] [phone] Performing Lab: [address] [address] VITAMIN D, 25-HYDROXY 23.8 ng/mL L 30-96 Jul 05, 2024 11:54 AM [facility] PROST. SPECIFIC AG.(PB-STL) SERUM Specimen Ty pe: SERUM Comment: The listed sex of this patient may not be a typical indication for this test. Therefore, reference ranges or interpretive criteria listed may not be valid. Clinical correlation suggested. Ordering Provider: CHITRA CASTANEDA Report Released Date/Time: Mar 03, 2024 10:21 AM Reporting Lab: [address] [address] Performing Lab: [address] [address] PROST. SPECIFIC AG.(PB-STL) <0.100 ng/mL 0-4 Jul 05, 2024 11:54 AM [facility] HGA1C BLOOD Specimen Type: BLOOD No comment entered. Ordering Provider: CHITRA CASTANEDA Report Released Date/Time: Mar 03, 2024 10:21 AM Reporting Lab: [facility] [address] [place] [phone] Performing Lab: [address] [address] HGA1C 5.7 4.0-6.0 Jul 05, 2024 11:54 AM [facility] LIPID PANEL (STL) PLASMA Specimen Type: PLASM A Comment: No hemolysis noted. Ordering Provider: CHITRA CASTANEDA Report Released Date/Time: Mar 03, 2024 10:21 AM Reporting Lab: [facility] [address] [facility] [address] Performing Lab: [address] [address] CHOLESTEROL 220 mg/dL H 0-200 TRIGLYCERIDE 159 mg/dL H 0-150 CALCULATED LDL 123 mg/dL HDL(New) 65 mg/dL >40 Jul 05, 2024 11:54 AM [facility] COMPREHENSIVE METABOLIC PANEL PLASMA Specimen Type: PLASMA Comment: No hemolysis noted. Ordering Provider: BRADEN DUNBAR Report Released Date/Time: Jun 20, 2024 01:13 PM Reporting Lab: [facility] [address] [facility] [phone] Performing Lab: [facility] [address] [facility] [phone] CREATININE 1.04 mg/dL 0.7-1.3 UREA NITROGEN 10.4 [...] U/L 8-40 EGFR (CKD-EPI 2020) 78.2 >60 Vital Signs: All taken on the encounter date This section contains inpatient and outpatient Vital Signs collected on the date of the Encounter. Date/Time Temperature Pulse Blood Pressure Respiratory Rate SP02 Pain Height Weight Body Mass Index Source Jul 10, 2024 10:49 AM 135/75 [facility] Social History: Smoking Status (Most current) and Tobacco Use (All prior to encounter date) This section includes the most current, and the historical, smoking and tobacco- related health factors from the [place] facility where the Encounter took place. Current Smoking Status This section includes the most current smoking, or tobacco-related health factor, from the [place] facility where the Encounter took place. Date/Time Current Smoking Status Comment [facility] May 26, 2023 09:30 AM NE-TOBACCO FORMER USER [facility] Tobacco Use History This section includes a history of the smoking, or tobacco-related health factors, that were collected on or before the date of the Encounter. The data comes from the [place] facility where the Encounter took place. Date/Time Smoking Status/Tobacco Use Comment F acility May 26, 2023 09:30 AM VA-TOBACCO QUIT 15 YRS OR MORE [facility] Aug 21, 2021 11:30 AM VA-TOBACCO FORMER USER [facility] Aug 21, 2021 11:30 AM VA-TOBACCO QUIT 15 YRS OR MORE [facility] December 31, 2017 12:42 PM QUIT TOBACCO >7 YEARS AGO [facility] Aug 27, 2017 10:19 AM QUIT TOBACCO >7 YEARS AGO [facility] Aug 24, 2017 11:31 AM QUIT TOBACCO >7 YEARS AGO [facility] Advance Directives: All historical and current Section Date Range: From patient's date of to the date document was created. This section includes ALL of a patient's completed or amended [place] Advance and Rescinded Directives. The entries below indicate that a directive exists for the patient, but an actual copy is not included with this document. The data comes from all [facility]. Date Advance Directives Provider Source Apr 02, 2016 ADVANCE DIRECTIVE DISCUSSION UDAY BREEN [facility] Encounter Notes: All associated encounter notes This section contains the clinical notes associated to the Encounter. Date/Time Encounter Note(s) Provider Source Jul 10, 2024 10:10 AM TELEHEALTH NOTE: LOCAL TITLE: PRIMARY CARE VIDEO CONNECT [place] STANDARD TITLE: TELEHEALTH NOTE DATE OF NOTE: JUL 10, 2024@10:10 ENTRY DATE: JUL 10, 2024@10:10:35 AUTHOR: CHITRA CASTANEDA EXP COSIGNER: URGENCY: STATUS: COMPLETED Medicine Provider Note Modality of Care: Clinical Video Telehealth Visit conducted by Clinical Video Telehealth. Patient/surrogate provided verbal consent for video telehealth. Patient location confirmed. Emergency number confirmed. Patient Contact Details: Best contact number for backup communication with patient: Patient Chief Complaint: Routine follow-up History of Present Illness: Mr Galindo is 69-year-old Afro-[place]ammar[place] male. Today has VVC appointment for follow-up He has multiple chronic medical condition as listed below He reports doing well blood pressure reported at home usually in the range 120-130 /70 Today was doing a lot of home errands trying to set up computer when checked his blood pressure was elevated initially 160/84 but after he relaxed and settled repeat blood pressure 135/75 pulse 72 he complies with his medication He has done blood work as below reviewed and discussed with him As total cholesterol elevated and LDL he reports did fasting blood work he claims taking atorvastatin 80 mg a day I discussed with him to avoid saturated/animal fat in diet and exercise daily He has prediabetes A1c 5.7% as below discussed continue to avoid sweets/high carbohydrate diet, juices, soda History of prostate CA - s/p RALP 04/2018 - has urinary incontinece since - wears liners in daytime and uses washcloth at night as it is more comfortable follow urology his LUIS A. 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 11) Recurrent depression 12) Admits alcohol use 13) Ventral hernia 14) Erectile dysfunction following radical prostatectomy (SNOMED CT 449623913294633) 15) Benign essential hypertension 16) History of malignant neoplasm of prostate 17) Vitamin D deficiency Comment: Allergies/Adverse Drug Reactions: IODINATED CONTRAST MEDIA, TRAVATAN Z, SLO-NIACIN TABLET, DORZOLAMIDE, COSOPT Active and Medication List: Active and Recently Outpatient Medications (excluding Supplies): Active Outpatient Medications Status 1) BRIMONIDINE 0.2%/BRINZOLAMID 1% OPH SUSP INSTILL 1 ACTIVE DROP IN BOTH EYES THREE TIMES A DAY FOR GLAUCOMA 2) BUPROPION HCL 150MG 24HR SA TAB TAKE ONE TABLET BY ACTIVE MOUTH ONCE A DAY FOR DEPRESSION SWALLOW WHOLE - DO NOT CRUSH OR CHEW. 3) HCTZ 12.5MG/LOSARTAN 50MG TAB TAKE 1 TABLET BY MOUTH ACTIVE EVERY MORNING FOR HIGH BLOOD PRESSURE TO LOWER BLOOD PRESSURE 4) LATANOPROST 0.005% OPH SOLN INSTILL 1 DROP IN BOTH ACTIVE EYES EVERY EVENING FOR GLAUCOMA. KEEP REFRIGERATED UNTIL READY TO USE, THEN STORE AT ROOM TEMPERATURE FOR MAXIMUM OF 42 DAYS. 5) MELATONIN 1MG CAP/TAB TAKE TWO CAP/TAB BY MOUTH AT ACTIVE (S) BEDTIME NEEDED FOR SLEEP 6) SODIUM FLUORIDE 1.1% TOOTHPASTE USE DIRECTED BY ACTIVE MOUTH ONCE A DAY FOR DENTAL HEALTH TOOTHPASTE (DO NOT SWALLOW) 7) TIMOLOL MALEATE 0.5% OPH SOLN INSTILL 1 DROP IN BOTH ACTIVE EYES EVERY MORNING FOR GLAUCOMA. Active Non-VA Medications Status 1) Non-VA CICLOPIROX OLAMINE 0.77% TOP GEL SPARINGLY TO ACTIVE AFFECTED AREA(S) AT BEDTIME 2) Non-VA NALTREXONE (EQV-REVIA) 50MG TAB 25MG BY MOUTH ACTIVE ONCE A DAY 3) Non-VA PAPAVERINE INJ INTRAMUSCULARLY NEEDED ACTIVE 10 Total Medications Medication Reconciliation Completed: Most Recent Vital Signs: Measurement DT TEMP PULSE RESP BP HT WT F(C) IN(CM) LB(KG)[BMI] ---- ----- ---- -- ------ 05/18/2024 13:08 98.7(37.1) 87 18 145/92 212(96.2)[29*] 03/03/2024 09:33 98.2(36.8) 66 18 124/80 72.0(183) 218(98.8)[30*] Measurement DT CVP POx CG CMH20(MMHG) (L/MIN)(%) IN(CM) ------ 03/03/2024 09:33 97 10/06/2023 10:26 99 Measurement DT Pain ---- 03/03/2024 09:33 0 10/06/2023 10:26 0 Physical Exam General: Well-appearing male sitting comfortably friendly and cooperative Labs CMP: SODIUM 139 mEq/L 07/05/2024 11:54 POTASSIUM [...] 11:00 BASOPHILS, ABSOLUTE 0.03 10*3/uL 11/23/2023 11:00 INR: No INR EO data found HgA1C: HGB A1C Collection DT Specimen Test Name Result Units Ref Range 07/05/2024 11:54 BLOOD HGA1C 5.7 % 4.0 - 6.0 11/23/2023 11:00 BLOOD HGA1C 6.1 H % 4.0 - 6.0 05/26/2023 11:08 BLOOD HGA1C 5.8 % 4.0 - 6.0 Lipid Panel: TRIGLYCERIDE 159 H mg/dL 07/05/2024 11:54 CHOLESTEROL 220 H mg/dL 07/05/2024 11:54 HDL(New) 65 mg/dL 07/05/2024 11:54 CALCULATED LDL 123 mg/dL 07/05/2024 11:54 HIV: No HIV SCREENING EO data found Comment: Assessment/Plan: 1) HTN -stable repeat blood pressure better as above Will continue with the current antihypertensive medication BP goal < 140/90 -Continue avoid salty food and food like hot dog lunch meat canned food low sodium diet -Exercise daily 2) HLD -not at goal<200 T.Chol , LDL<100 Continue Atorvaststin 80 mga day -avoid saturated fat in ndiet - 3) Prediabetes -continue to watch high carbohydrate diet avoid weet and lose wt -excercise 4)ED Tadanafil 10mg pr week as directed He aware not to be on any nitrate compound Also aware tinnitus and NAION if experience. Medication immediately 5)Chronic low back pain - s/p surgery 1990 Stable - cont. Lidocain patch -use heating pad at home -Discussed stretch exercise 6) obstructive sleep apnea Using CPAP machine daily Alcohol Use Screen (AUDIT-C) - V: Alcohol Screen: SCREEN FOR ALCOHOL (AUDIT-C) An alcohol screening test (AUDIT-C) was negative (score=1). 1. How often did you have a drink containing alcohol in the past year? Consider a drink to be a 12 ounce can or bottle of regular beer, 8 ounces of malt liquor, a 5 ounce glass of table wine, or a 1.5 ounce shot of liquor (like scotch, gin, or vodka). Monthly or less 2. How many drinks containing alcohol did you have on a typical day when you were drinking in the past year? One or two drinks 3. How often did you have six or more drinks on one occasion in the past year? Never HTN Assess for Elevated BP>=140/90 - N,P,PH: Repeat blood pressure: 135/75 The patient's blood pressure is usually adequately controlled. No medication changes are indicated at this time. The patient was counseled on the importance of regular exercise and/or physical activity in the control of blood pressure. The patient was instructed to try to participate in 120 minutes of aerobic exercise per week if possible and that any increase in physical activity may be useful in controlling blood pressure. The patient was counseled on the importance of diet and weight loss/ control in the regulation of blood pressure. The patient was counseled to reduce their weight to within 10 percent of their ideal body weight. The possible improvement in blood pressure control with even 5 to 10 pounds of weight loss was reviewed. The contribution of dietary sodium to elevated blood pressure was reviewed. The patient was counseled to have a goal sodium intake of 1500mg per day, with no more than 2300mg per day. The patient was counseled that a diet low in dietary saturated and trans fats is beneficial in lowering blood pressure. The patient was counseled that a diet rich in fresh fruits, vegetables and whole grains is beneficial in lowering blood pressure. The patient was counseled to limit alcohol intake to no more than 2 drinks per day for men and 1 drink per day for women. Follow-up [id number] November 07, 2024 /sadaf/ Chitra Castaneda MD Staff Physician Signed: 07/10/2024 10:51 Receipt Acknowledged By: 07/18/2024 14:17 /sadaf/ ROSA M HUFF [employer] CHITRA CASTANEDA [facility] Jul 10, 2024 09:55 AM TELEHEALTH NOTE: LOCAL TITLE: PCS PACT RACHANA VIDEO CONNECT STL STANDARD TITLE: TELEHEALTH NOTE DATE OF NOTE: JUL 10, 2024@09:55 ENTRY DATE: JUL 10, 2024@09:55:20 AUTHOR: DONNA HORTON EXP COSIGNER: URGENCY: STATUS: COMPLETED Patient Identifiers : Full Name Date of Visit conducted by Clinical Video Telehealth. V15 [facility] Video Connect/Video to Home [facility] Video Connect ([facility])/Video to home template v1.5 Visit conducted by synchronous telehealth. Location/emergency number confirmed. Environment surveyed and all participants identified. Virtual conference room locked. VVC/Video to home appointment information: The following items were reviewed: - The nature of telehealth, its benefits, and risks. - Confidentiality and its limits. - The importance of having a confidential location for the service. - The emergency plan. - The appointment should be treated like an in person appointment (no smoking or driving during session, showing up fully dressed, etc.) *The Virtual Medical Room was locked for this encounter. *A survey of the environment was conducted and it is appropriate to conduct a VVC appointment. *Confirmed [facility] Non-VA location for this appointment: [facility] [address] [place] [id number] Address and phone number verified with [facility]. Address: Phone: does not have an emergency contact. * was notified of right to decline Telehealth services and eligibility for other options. consented to be seen via VVC. EMERGENCY PLAN In the event of an emergency, the [facility] or family will call emergency services, if capable. The Teleprovider will remain in the virtual medical room until emergency response arrives and handoff to emergency services is complete. If [facility] is unable to make emergency call, the Teleprovider is to call the national E911 service at [phone] and ask to be connected to emergency services for the [facility] location. [facility] Crisis Line: Dial 988 then press 1, or text [phone] Office of Connected Care Helpdesk (OCC): [phone] or [phone] Verified Provider's location and contact information for this appointment: [address] [address] x Provider Visit: Reason for Visit: Established Follow-Up: LEONEL Allergy Review: IODINATED CONTRAST MEDIA, TRAVATAN Z, SLO-NIACIN TABLET, DORZOLAMIDE, COSOPT Allergy list reviewed and remains current. Recent Vital Signs: Temperature: 98.7 F [37.1 C] (05/18/2024 13:08) Pulse: 87 (05/18/2024 13:08) Respiration: 18 (05/18/2024 13:08) B/P: 145/92 (05/18/2024 13:08) Pain: 0 (03/03/2024 09:33) Wt: 212 lb [96.16 kg] (05/18/2024 13:08) Ht: 72 in [182.9 cm] (03/03/2024 09:33) BMI: 28.8 POX: 97% (03/03/2024 09:33) Blood sugar glucometer reading: PERSONAL HEALTH INVENTORY Notes: No data available for PHI note titles PERSONAL HEALTH INVENTORY - MAP: Personal Health Inventory (Short) 06/28/2023 Phis What Do You Live For HEALTH [facility] 11/29/2023 Personal Health Plan [place], [place] (MAP) my health 10/06/2023 Personal Health Plan [place], [place] (MAP) be healthy eat better What matters most to you in your life right now? -- [facility] Response: FAMILY Would you like to discuss any personal problem, family problem, alcohol use, drug use, or a mental or emotional illness? No /es/ DONNA HORTON LPN LICENSED PRACTICAL NURSE Signed: 07/10/2024 10:04 DONNA HORTON [facility]
--- OUTSIDE RECORDS SUMMARY | 2025-02-07 09:49 | XMS_ITS | Encounter Summary ---
Author Name [facility] [place] Address [address] [place] [address] Care Team Providers Care Pharmacy Technology Instructor Name Role Phone CHITRA CASTANEDA Primary Care [...] Najera's Name Patient's Relationship to Policy Najera [facility] (WNR) MEDICARE ADVANTAGE [facility] (WNR) Jun 23, 2021 [id number] Devin MITCHELL PATIENT Selected Encounter This section includes the information on record at [place] for the Encounter. Date/Time Encounter Type Encounter Description Reason Provider Source Oct 31, 2024 01:00 PM OFFICE O/P EST MOD 30 MIN [facility] - IND ICD-10-CM F33.0 Major depressive disorder, recurrent, mild BRADEN FORD IHAmarjit Encounter Template Text not used by [facility] Assessments - Encounter Diagnoses This section includes the primary and secondary diagnoses documented for the Encounter. Date/Time Primary/Secondary Diagnosis Diagnosis Name Provider Source Oct 31, 2024 01:32 PM PRIMARY Major depressive disorder, recurrent, mild BRADEN FORD [facility] Oct 31, 2024 01:32 PM SECONDARY Alcohol dependence with unspecified alcohol-induced disorder BRADEN FORD [facility] Plan of Treatment: Future Appointments (+ 6 months) and Future Tests (+/- 45 days) The Plan of Treatment section includes future care activities for the patient from all [place] [facility]. This section includes future appointments and future orders which are active, pending or scheduled. Future Appointments This section includes appointments that were scheduled to occur 6 months from the date of the Encounter, up to a maximum of 20 appointments. The data comes from all [facility]. Appointment Date/Time Appointment Type Appointme nt Facility Name Nov 07, 2024 03:00 PM AMBULATORY - MEDICINE [facility] Nov 09, 2024 01:30 PM AMBULATORY - SURGERY . [facility] Nov 18, 2024 07:37 PM AMBULATORY - MEDICINE [facility] Dec 12, 2024 10:00 AM AMBULATORY - NONE [facility] December 21, 2024 01:30 PM AMBULATORY - SURGERY [facility] Jan 22, 2025 01:30 PM AMBULATORY - PSYCHIATRY [facility] Feb 12, 2025 01:30 PM AMBULATORY - MEDICINE [facility] Mar 12, 2025 01:00 PM AMBULATORY - NONE [facility] May 01, 2025 01:30 PM AMBULATORY - PSYCHIATRY [facility] Active, Pending, and Scheduled Orders This section includes a listing of several types of active, pending, and scheduled orders, including clinic medications orders, diagnostic test orders, procedure orders and consult orders; where the start date of the order is 45 days before the date of the Encounter or 45 days after the date of theEncounter. The data comes from all [facility]. Test Date/Time Test Type Test Details Facility Name Dec 12, 2024 12:00 AM Laboratory - Chemi rafaely Order OCCULT BLOOD FIT X1 SCREEN STOOL FECES [facility] Lab Results: +/- 30 days of the encounter This section includes the Chemistry and Hematology Lab Results on record with [place] for the patient. Radiology Reports and Pathology Reports are provided separately, in subsequent sections. Lab Results This section contains the Chemistry/Hematology Results that were resulted 30 days before or 30 daysafter the date of the Encounter. Date/Time Source Result Type Result - Unit Interpretation Reference Range Specimen Type Comment Nov 18, 2024 08:06 PM [facility] COVID-19 DIAGNOSTIC (FLU/RSV)(STL) NASOPHARYNX Spec imen Type: [...] Nov 18, 2024 08:03 PM Reporting Lab: [address] [address] Performing Lab: [address] [address] INFLUENZA A NEG Negative INFLUENZA B NEG Negative COVID-19 (STL-PB) NEG Not Detected RSV (Cepheid) Negative Negative Vital Signs: All taken on the encounter date This section contains inpatient and outpatient Vital Signs collected on the date of the Encounter. Date/Time Temperature Pulse Blood Pressure Respiratory Rate SP02 Pain Height Weight Body Mass Index Source Oct 31, 2024 01:37 PM 98.4 63 147/86 20 98 207.9 28 [facility] Social History: Smoking Status (Most current) and Tobacco Use (All prior to encounter date) This section includes the most current, and the historical, smoking and tobacco- related health factors from the [place] facility where the Encounter took place. Current Smoking Status This section includes the most current smoking, or tobacco-related health factor, from the [place] facility where the Encounter took place. Date/Time Current Smoking Status Comment Parvez reynoso May 18, 2024 01:04 PM VA-TOBACCO FORMER USER [facility] Tobacco Use History This section includes a history of the smoking, or tobacco-related health factors, that were collected on or before the date of the Encounter. The data comes from the [place] facility where the Encounter took place. Date/Time Smoking Status/Tobacco Use Comment F acility May 18, 2024 01:04 PM VA-TOBACCO QUIT 15 YRS OR MORE [facility] December 30, 2018 07:34 PM LIFETIME NON-USER OF TOBACCO [facility] May 03, 2018 05:45 PM LIFETIME NON-USER OF TOBACCO [facility] May 13, 2016 03:31 PM LIFETIME NON-USER OF TOBACCO [facility] Mar 12, 2015 01:23 PM QUIT TOBACCO >7 YEARS AGO [facility] January 12, 2014 10:16 AM LIFETIME NON-USER OF TOBACCO [facility] Mar 02, 2013 11:09 AM QUIT TOBACCO >7 YEARS AGO [facility] Jul 26, 2008 02:17 PM QUIT TOBACCO >7 YEARS AGO [facility] Advance Directives: All historical and current Section Date Range: From patient's date of to the date document was created. This section includes ALL of a patient's completed or amended [place] Advance and Rescinded Directives. The entries below indicate that a directive exists for the patient, but an actual copy is not included with this document. The data comes from all [place] facilities. Date Advance Directives Provider Source Apr 02, 2016 ADVANCE DIRECTIVE DISCUSSION UDAY BREEN [facility] Radiology Reports: +/- 30 days of the [...] the Encounter. The data comes from all [place] treatment facilities. Date/Time Radiology Report Provider Source Nov 18, 2024 07:46 PM CHEST X-RAY, 2 VIE WS: ERAN MITCHELL [id number] -[id number] M Ex Date: NOV 18, 2024@19:46 Req Phys: VU,ALBERTO D Pat Loc: [facility]GENCY DEPT 3RD SHIFT (R Img Loc: [facility]MAIN RADIOLOGY SUITE Service: Unknown [facility], [address] [place] [address] (Case [id number] COMPLETE) CHEST X-RAY, 2 VIEWS (RAD Detailed) CPT:57055 Reason for Study: PNA rule out Clinical History: Report Status: Verified Date Reported: NOV 18, 2024 Date Verified: NOV 18, 2024 Water Trainer E-Sig: Report: Procedure: CHEST X-RAY, 2 VIEWS Clinical history: PNA rule out Comparison: Chest x-rays of November 14, 2018. Technique: The study was protocoled and supervised at the local [place] facility. Study was sent to [place] national teleradiology program (NTP) for interpretation. Frontal [...] recent exams. READING PHYSICIAN: Pepe Watson M.D. -[id number] 11/18/2024 15:35 [facility] National Teleradiology Program [phone] (For Medical Practitioner Use Only) Attention Patients / Veterans: If you have questions or concerns about these test results, please contact your ordering provider or primary care team. Primary Interpreting Staff: RADIOLOGY,OUTSIDE SERVICE, Staff Physician / RADIOLOGY,OUTSIDE SERVICE [facility] Encounter Notes: All associated encounter notes This section contains the clinical notes associated to the Encounter. Date/Time Encounter Note(s) Provider Source Oct 31, 2024 01:08 PM PSYCHIATRY NOTE: LOCAL TITLE: PSYCHIATRY ST STANDARD TITLE: PSYCHIATRY NOTE DATE OF NOTE: OCT 31, 2024@13:08 ENTRY DATE: OCT 31, 2024@13:08:40 AUTHOR: BRADEN FORD EXP COSIGNER: URGENCY: STATUS: COMPLETED PSYCHIATRIC FOLLOW-UP NOTE [facility] Name: ERAN MITCHELL Age: 69 Gender: MALE Visit Date: OCT 31, 2024 Time: 9265-3303 REASON FOR ENCOUNTER: ERAN MITCHELL is a 69-year-old MALE with a PPH of MDD, alcohol use and a PMH of HLD and HTN who presents to clinic for follow-up. They were last seen on 08/01/2024 with the following recommendations/adjustments: - vet uses chamomile tea prn for insomnia (finds helpful) - continue Melatonin 2 mg qhs prn - continue Naltrexone 50 mg daily - vet purchased from computer typesetter and was provided 180 tablets - continue Bupropion XL 150 mg daily (mood, nicotine cessation) Most recent visit summary: - melatonin helpful for sleep, using prn, more relaxed and able to fall asleep - sleeping 6-8h/night - EtOH use: Nov was challening (vet's , birthday, ), drinking 2 beers at a time, 2-3 days out of 7, did not get drunk at any of these times - denied side effects - planning to move and signed new lease (will have more outdoor space, feels excited) - denied depressive concerns INTERVAL HISTORY: Since last visit, Eran reports that he has been doing great. He has officially moved into his new residence. He is planning to sell his old home. He is planning to continue receiving his medications as his old place; he was advised to update the [place] kathleen when he wishes to receive his meds at the new location. He reports that he has continued to drink alcohol and reports drinking around 2-3 days per week and will consume 2-3 standard drinks at the time. He denies becoming intoxicated. He states that he mentally feels more comfortable with his alcohol use currently (I feel more comfortable like I'm in control of my drinking rather than it's in control of me.) He reports using melatonin prn but notes that he has been more physically tired because he has been more physically active. He is not using chamamille tea any longer. Overall, he reports feeling good about everything. He asks about his Wellbutrin XL and questions if he can come off this. We discussed a taper plan for this. Denies other issues or concerns. He has continued to take naltrexone without issue. Denies SI, HI. MEDICATION SIDE EFFECTS: None. 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 at recent visits has reported continued ability to cut back on alcohol intake, but in 04/2024 had been drinking up to 3 beers per day and wished to reconnect with psychiatry for further support. Began treatment with Wellbutrin in 2021 for tobacco cessation. Started Naltrexone 50 mg daily for alcohol cravings in 2023 (vet was drinking 3-4 beers daily and grew concerned that it was becoming a habit). Has noted benefit from naltrexone through medications and behavioral changes. OUTPATIENT MEDICATIONS: Active Outpatient Medications (including Supplies): [...] BEDTIME ACTIVE NEEDED Indication: FOR SLEEP 8) TIMOLOL MALEATE 0.5% OPH SOLN INSTILL 1 [...] 3) Non-VA PAPAVERINE INJ INTRAMUSCULARLY NEEDED ACTIVE 11 Total Medications No medications found. ACTIVE OUTPATIENT INJECTIONS AND INPATIENT MEDICATIONS No medications found. PSYCHIATRIC SPECIALTY EXAMINATION: ====== MSE: *Appearance: 69 yo black male who appears approximately stated age, wearing casual clothing, good grooming/hygiene *Behavior: cooperative, engaged, not in acute distress [...] TSH (2YR) EO data found ASSESSMENT: PAULAERAN is a 69-year-old MALE with a PPH of MDD, alcohol use and a PMH of HLD and HTN who presents to clinic for follow-up. Today, Eran notes continued stability in his alcohol consumption and reports [...] uses prn). No acute concerns for depression. Dada does not wish to make changes today. [...] use (consider use disorder, mild) PLAN: ===== Medications/treatment: - continue Melatonin 2 mg qhs prn for insomnia - continue Naltrexone 50 mg daily for alcohol cravings - on 11/21/2024 start Bupropion XL 150 mg daily taper as vet notes well- controlled depression - decrease to 75 mg daily until next visit (will discuss further adjustments) - if concerns for alcohol increase or withdrawal, will alternate 150 mg daily with 75 mg daily until next visit Labs/monitoring: - Apr 2024: LFTs/CMP wnl Resources/referrals: - none EDUCATION: - Educated to be compliant and [...] resources in detail. The was informed to [phone] for ROUTINE questions/concerns, to call [facility] Crisis Line 198 and press 1 for URGENT or EMERGENT situations or to call 911 or present to the nearest ER. Also, the was advised that the [facility] ER is available to the pt. on a 15/03 basis if needed. Informed Consent: The diagnosis, [...] described above. FOLLOW-UP: Return to clinic in 8 weeks TIME: 25 minutes Braden Ford MD Psychiatry /es/ BRADEN FORD MD [facility] Psychiatrist Signed: 10/31/2024 13:32 BRADEN FORD [facility]
--- OUTSIDE RECORDS SUMMARY | 2025-02-07 09:49 | XMS_ITS | Encounter Summary ---
Author Name [facility] [place] Address [address] [place] [address] Care Team Providers Care Grades 7 And 8 Visiting Teacher Name Role Phone CHITRA CASTANEDA Primary Care [...] Najera's Name Patient's Relationship to Policy Najera [facility] (WNR) MEDICARE ADVANTAGE [facility] (WNR) Jun 23, 2021 [id number] Devin MITCHELL PATIENT Selected Encounter This section includes the information on record at [place] for the Encounter. 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 Date/Time Primary/Secondary Diagnosis Diagnosis Name Provider Source Nov 09, 2024 02:29 PM PRIMARY Low-tension glaucoma, right eye, moderate stage S[facility]APATHYPILLAI ,[facility] Nov 09, 2024 02:29 PM SECONDARY Low-tension glaucoma, left eye, mild stage SABAPATHYPILLAI ,[facility] Plan of Treatment: Future Appointments (+ 6 months) and Future Tests (+/- 45 days) The Plan of Treatment section includes future care activities for the patient from all [place] [facility]. This section includes future appointments and future orders which are active, pending or scheduled. Future Appointments This section includes appointments that were scheduled to occur 6 months from the date of the Encounter, up to a maximum of 20 appointments. The data comes from all [facility]. Appointment Date/Time Appointment Type Appointme nt Facility Name Nov 18, 2024 07:37 PM AMBULATORY - MEDICINE [facility] Dec 12, 2024 10:00 AM AMBULATORY - NONE [facility] December 21, 2024 01:30 PM AMBULATORY - SURGERY [facility] Jan 22, 2025 01:30 PM AMBULATORY - PSYCHIATRY [facility] Feb 12, 2025 01:30 PM AMBULATORY - MEDICINE [facility] Mar 12, 2025 01:00 PM AMBULATORY - NONE [facility] May 01, 2025 01:30 PM AMBULATORY - PSYCHIATRY [facility] Active, Pending, and Scheduled Orders This section includes a listing of several types of active, pending, and scheduled orders, including clinic medications orders, diagnostic test orders, procedure orders and consult orders; where the start date of the order is 45 days before the date of the Encounter or 45 days after the date of theEncounter. The data comes from all [facility]. Test Date/Time Test Type Test Details Facility Name Dec 12, 2024 12:00 AM Laboratory - Chemi rafaely Order OCCULT BLOOD FIT X1 SCREEN STOOL FECES [facility] Lab Results: +/- 30 days of the encounter This section includes the Chemistry and Hematology Lab Results on record with [place] for the patient. Radiology Reports and Pathology Reports are provided separately, in subsequent sections. Lab Results This section contains the Chemistry/Hematology Results that were resulted 30 days before or 30 daysafter the date of the Encounter. Date/Time Source Result Type Result - Unit Interpretation Reference Range Specimen Type Comment Dec 04, 2024 11:00 AM [facility] OCCULT BLOOD FIT X1 SCREEN FECES Specimen Typ e: FECES No comment entered. Ordering Provider: CHITRA CASTANEDA Report Released Date/Time: Nov 07, 2024 03:30 PM Reporting Lab: [facility] [address] [facility] [id number] Performing Lab: [facility] [address] [facility] [address] OCCULT BLOOD (FIT) #1 OF 1 Negative Nega tive Nov 18, 2024 08:06 PM [facility] COVID-19 DIAGNOSTIC (FLU/RSV)(STL) NASOPHARYNX Spec imen Type: [...] Nov 18, 2024 08:03 PM Reporting Lab: [facility] [address] [facility] [address] Performing Lab: [address] [address] INFLUENZA A NEG Negative INFLUENZA B NEG Negative COVID-19 (STL-PB) NEG Not Detected RSV (Cepheid) Negative Negative Social History: Smoking Status (Most current) and Tobacco Use (All prior to encounter date) This section includes the most current, and the historical, smoking and tobacco- related health factors from the [place] facility where the Encounter took place. Current Smoking Status This section includes the most current smoking, or tobacco-related health factor, from the [place] facility where the Encounter took place. Date/Time Current Smoking Status Comment Parvez reynoso May 18, 2024 01:04 PM VA-TOBACCO QUIT 15 YRS OR MORE [facility] Tobacco Use History This section includes a history of the smoking, or tobacco-related health factors, that were collected on or before the date of the Encounter. The data comes from the [place] facility where the Encounter took place. Date/Time Smoking Status/Tobacco Use Comment F acility May 18, 2024 01:04 PM VA-TOBACCO QUIT 15 YRS OR MORE [facility] December 30, 2018 07:34 PM LIFETIME NON-USER OF TOBACCO [facility] May 03, 2018 05:45 PM LIFETIME NON-USER OF TOBACCO [facility] May 13, 2016 03:31 PM LIFETIME NON-USER OF TOBACCO [facility] Mar 12, 2015 01:23 PM QUIT TOBACCO >7 YEARS AGO [facility] January 12, 2014 10:16 AM LIFETIME NON-USER OF TOBACCO [facility] Mar 02, 2013 11:09 AM QUIT TOBACCO >7 YEARS AGO [facility] Jul 26, 2008 02:17 PM QUIT TOBACCO >7 YEARS AGO [facility] Advance Directives: All historical and current Section Date Range: From patient's date of to the date document was created. This section includes ALL of a patient's completed or amended [place] Advance and Rescinded Directives. The entries below indicate that a directive exists for the patient, but an actual copy is not included with this document. The data comes from all [facility]. Date Advance Directives Provider Source Apr 02, 2016 ADVANCE DIRECTIVE DISCUSSION UDAY BREEN [facility] Radiology Reports: +/- 30 days of the [...] the Encounter. The data comes from all [place] treatment facilities. Date/Time Radiology Report Provider Source Nov 18, 2024 07:46 PM CHEST X-RAY, 2 VIE WS: TRA MITCHELL [id number] -[id number] M Exm Date: NOV 18, 2024@19:46 Req Phys: VU,ALBERTO D Pat Loc: [facility]Y DEPT 3RD SHIFT (R Img Loc: [facility] RADIOLOGY SUITE Service: Unknown [facility], [address] [place] [address] (Case [id number] COMPLETE) CHEST X-RAY, 2 VIEWS (RAD Detailed) CPT:84985 Reason for Study: PNA rule out Clinical History: Report Status: Verified Date Reported: NOV 18, 2024 Date Verified: NOV 18, 2024 Systems Lead E-Sig: Report: Procedure: CHEST X-RAY, 2 VIEWS Clinical history: PNA rule out Comparison: Chest x-rays of November 14, 2018. Technique: The study was protocoled and supervised at the local [place] facility. Study was sent to [place] national teleradiology program (NTP) for interpretation. Frontal [...] recent exams. READING PHYSICIAN: Pepe Watson M.D. -[id number] 11/18/2024 15:35 [facility] National Teleradiology Program [phone] (For Medical Practitioner Use Only) Attention Patients / Veterans: If you have questions or concerns about these test results, please contact your ordering provider or primary care team. Primary Interpreting Staff: RADIOLOGY,OUTSIDE SERVICE, Staff Physician / RADIOLOGY,OUTSIDE SERVICE [facility] Encounter Notes: All associated encounter notes This section contains the clinical notes associated to the Encounter. Date/Time Encounter Note(s) Provider Source Nov 09, 2024 01:56 PM OPHTHALMOLOGY NOTE : LOCAL TITLE: OPHTHALMOLOGY NOTE STL STANDARD TITLE: OPHTHALMOLOGY NOTE DATE OF NOTE: NOV 09, 2024@13:56 ENTRY DATE: NOV 09, 2024@13:56:31 AUTHOR: ALINE CONTEH COSIGNER: GEORGIE GOEL V URGENCY: STATUS: COMPLETED OPHTHALMOLOGY NOTE STL Has ADDENDA GLAUCOMA NOTE Last seen 09/15/24 and plan was to return in 3-4 months for DFEx OU, OCT RNFL OU, and automated GVF. Add on visit today for drop irritation. Reports that he has noticed increase lower eyelid swelling as well as redness, more so associated with the green top drop that he uses 3x a day. ======= Drops: Simbrinza TID OU -- used today Timolol QAM OU -- used today Latan QHS OU -- used last night Intolerant of dorzolamide (prolonged burning); simbrinza eye redness/swelling ======= VISUAL ACUITY With Out Correction OD: 20/40 OS: 20/25 AUTO REFRACTION SUBJ: OD: +1.25 +0.00 0 OS: +0.50 +0.25 104 VISUAL ACUITY WITH AUTO REFRACTION: OD: 20/30-2 OS: 20/20 Ta 20/25 /09/15/202407/0304/14/2412/02/2306/04/2305/0712/07/2207/09/2204/0808/25/2007/0303/28/2106/0111/28/20 12.01/0209/26/2005/06 = MD check post-dilation. 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 normal foveal depression OU A/P: 69 year old 1. POAG/NTG OD>OS [...] but could attempt again if needed - IOP slightly increased today and suspect papillary reaction related to simbrinza - Will stop simbrinza and trial Brimonidine TID OU, coninue timolol and latan - Continue to follow primarily with RNFL and IOP. If >18 or stil intolerant to drops, then consider next intervention (SLT, phaco-MIGS, Durysta). - RTC 6 weeks for repeat Automated GVF with lid taping OU, DFE OU, and OCT RNFL/GCC OU, IOP check 2. Early cataracts OU - NVS, monitor - Consider phaco/goniotomy when the time comes 3. RE/P - Happy with uncorrected distance vision - Uses OTC readers /sadaf/ Neetu Conteh MD, MSc Resident Physician, Ophthalmology Signed: 11/09/2024 14:30 /sadaf/ AMEAY V MARILEENE STAFF PHYSICIAN Cosigned: 11/09/2024 15:41 11/09/2024 ADDENDUM STATUS: COMPLETED if iop elevated at next visit discuss with cornea to see if we can further taper FML /es/ AMEAY V NARAVANE STAFF PHYSICIAN Signed: 11/09/2024 15:41 ALINE CONTEH [facility]
--- OUTSIDE RECORDS SUMMARY | 2025-02-07 09:49 | XMS_ITS ---
Author Name [facility] [place] [facility] [place] [facility] [facility] [place] Address [address] [place] [address] Care Team Providers [employer] Name Role Phone CHITRA CASTANEDA Primary Care [...] Najera's Name Patient's Relationship to Policy Najera [facility] (WNR) MEDICARE ADVANTAGE [facility] (WNR) Jun 23, 2021 [id number] Devin MITCHELL PATIENT Selected Encounter This section includes the information on record at [place] for the Encounter. Date/Time Encounter Type Encounter Description Reason Provider Source May 18, 2024 01:30 PM OFFICE O/P EST MOD 30 MIN [facility] - IND ICD-10-CM F10.90 Alcohol use, unspecified, uncomplicated WALDEMAR FORD IHAmarjit Encounter Template Text not used by [facility] Assessments - Encounter Diagnoses This section includes the primary and secondary diagnoses documented for the Encounter. Date/Time Primary/Secondary Diagnosis Diagnosis Name Provider Source May 18, 2024 01:42 PM PRIMARY Alcohol use, unspecified, uncomplicated WALDEMAR FORD [facility] Plan of Treatment: Future Appointments (+ 6 months) and Future Tests (+/- 45 days) The Plan of Treatment section includes future care activities for the patient [facility] [place] [facility] This section includes future appointments and future orders which are active, pending or scheduled. Future Appointments This section includes appointments that were scheduled to occur 6 months from the date of the Encounter, up to a maximum of 20 appointments. The data comes from all [place] treatment facilities. Appointment Date/Time Appointment Type Appointme nt Facility Name May 19, 2024 07:30 AM AMBULATORY - NONE [facility] Jun 20, 2024 01:00 PM AMBULATORY - PSYCHIATRY [facility] Jul 10, 2024 10:00 AM AMBULATORY - MEDICINE [facility] Jul 24, 2024 01:00 PM AMBULATORY - SURGERY [facility] Aug 01, 2024 11:30 AM AMBULATORY - PSYCHIATRY [facility] Sep 15, 2024 01:00 PM AMBULATORY - SURGERY [facility] Oct 31, 2024 01:00 PM AMBULATORY - PSYCHIATRY [facility] Nov 07, 2024 03:00 PM AMBULATORY - MEDICINE [facility] Nov 09, 2024 01:30 PM AMBULATORY - SURGERY [facility] Lab Results: +/- 30 days of the encounter This section includes the Chemistry and Hematology Lab Results on record with [place] for the patient. Radiology Reports and Pathology Reports are provided separately, in subsequent sections. Lab Results This section contains the Chemistry/Hematology Results that were resulted 30 days before or 30 daysafter the date of the Encounter. Date/Time Source Result Type Result - Unit Interpretation Reference Range Specimen Type Comment May 18, 2024 01:41 PM [facility] COMPREHENSIVE METABOLIC PANEL PLASMA Specimen Type: PLASMA Comment: No hemolysis noted. Ordering Provider: WALDEMAR FORD Report Released Date/Time: May 18, 2024 01:32 PM Reporting Lab: [place] [address] [facility] [id number] Performing Lab: [address] [place] [address] CREATININE 0.91 mg/dL 0.7-1.3 UREA NITROGEN 16.8 mg/dL 9.0-25.0 GLUCOSE 104 mg/dL H 72-99 SODIUM 142 meq/L 136-145 POTASSIUM 3.9 meq/L 3.5-5 CHLORIDE 110 meq/L H 98-107 CARBON DIOXIDE 21 meq/L L 22-31 CALCIUM 10.1 mg/dL 8.4-10.4 PROTEIN 7.6 g/dL 6-8.6 ALBUMIN 4.4 g/dL 3.4-5 TOTAL BILIRUBIN 0.3 mg/dL 0.2-1.2 ALKALINE PHOSPHATASE 98 U/L 40-150 AST/SGOT 25 U/L 5-34 ALT/SGPT 21 U/L 8-40 EGFR (CKD-EPI 2020) 92.4 >60 Vital Signs: All taken on the encounter date This section contains inpatient and outpatient Vital Signs collected on the date of the Encounter. Date/Time Temperature Pulse Blood Pressure Respiratory Rate SP02 Pain Height Weight Body Mass Index Source May 18, 2024 01:08 PM 98.7 87 145/92 18 212 29 [facility] Social History: Smoking Status (Most current) and Tobacco Use (All prior to encounter date) This section includes the most current, and the historical, smoking and tobacco- related health factors from the [place] facility where the Encounter took place. Current Smoking Status This section includes the most current smoking, or tobacco-related health factor, from the [place] facility where the Encounter took place. Date/Time Current Smoking Status Comment Parvez reynoso May 18, 2024 01:04 PM [place]-TOBACCO QUIT 15 YRS OR MORE [facility] Tobacco Use History This section includes a history of the smoking, or tobacco-related health factors, that were collected on or before the date of the Encounter. The data comes from the [place] facility where the Encounter took place. Date/Time Smoking Status/Tobacco Use Comment Ez ambriz May 18, 2024 01:04 PM [place]-TOBACCO QUIT 15 YRS OR MORE [facility] December 30, 2018 07:34 PM LIFETIME NON-USER OF TOBACCO [facility] May 03, 2018 05:45 PM LIFETIME NON-USER OF TOBACCO [facility] May 13, 2016 03:31 PM LIFETIME NON-USER OF TOBACCO [facility] Mar 12, 2015 01:23 PM QUIT TOBACCO >7 YEARS AGO [facility] January 12, 2014 10:16 AM LIFETIME NON-USER OF TOBACCO [facility] Mar 02, 2013 11:09 AM QUIT TOBACCO >7 YEARS AGO [facility] Jul 26, 2008 02:17 PM QUIT TOBACCO >7 YEARS AGO [facility] Advance Directives: All historical and current Section Date Range: From patient's date of to the date document was created. This section includes ALL of a patient's completed or amended [place] Advance and Rescinded Directives. The entries below indicate that a directive exists for the patient, but an actual copy is not included with this document. The data comes from all [place] facilities. Date Advance Directives Provider Source Apr 02, 2016 ADVANCE DIRECTIVE DISCUSSION UDAY BREEN [facility] Encounter Notes: All associated encounter notes This section contains the clinical notes associated to the Encounter. Date/Time Encounter Note(s) Provider Source May 18, 2024 01:42 PM SUICIDE PREVENTION NOTE: LOCAL TITLE: [place]-SUICIDE SEVERITY RATING SCALE STANDARD TITLE: SUICIDE PREVENTION NOTE DATE OF NOTE: MAY 18, 2024@13:42 ENTRY DATE: MAY 18, 2024@13:42:36 AUTHOR: WALDEMAR FORD COSIGNER: URGENCY: STATUS: COMPLETED [place]-Suicide Severity Rating Scale (C-SSRS Screener) 1. Over the past month, have you wished you were or wished you could go to sleep and not wake up? No 2. Over the past month, have you had any actual thoughts of killing yourself? No 3. Over the past month, have you been thinking about how you might do this? Response not required due to responses to other questions. 4. Over the past month, have you had these thoughts and had some intention of acting on them? Response not required due to responses to other questions. 5. Over the past month, have you started to work out or worked out the details of how to kill yourself? Response not required due to responses to other questions. 6. If yes, at any time in the past month did you intend to carry out this plan? Response not required due to responses to other questions. 7. In your lifetime, have you ever done anything, started to do anything, or prepared to do anything to end your life (for example, collected pills, obtained a gun, gave away valuables, went to the roof but didn't jump)? No 8. If YES, was this within the past 3 months? Response not required due to responses to other questions. I have reviewed the results of the Mental Health screens and have evaluated the patient. Based on the evaluation, the following disposition plan will be implemented: No further intervention is needed at this time. Contact information and instructions for accessing emergency services provided. /sadaf/ WALDEMAR FORD MD [facility] Psychiatrist Signed: 05/18/2024 13:45 WALDEMAR FORD [facility] May 18, 2024 01:09 PM PSYCHIATRY NOTE: LOCAL TITLE: PSYCHIATRY [facility] STANDARD TITLE: PSYCHIATRY NOTE DATE OF NOTE: MAY 18, 2024@13:09 ENTRY DATE: MAY 18, 2024@13:09:34 AUTHOR: WALDEMAR FORD EXP COSIGNER: URGENCY: STATUS: COMPLETED PSYCHIATRY [facility] Has ADDENDA PSYCHIATRIC FOLLOW-UP NOTE [facility] Name: ERAN MITCHELL Age: 68 Gender: MALE Visit Date: MAY 17, 2024 Time: [id number] REASON FOR ENCOUNTER: ERAN MITCHELL is a 68-year-old MALE with a PPH of MDD, alcohol use and a PMH of HLD and HTN who presents to clinic for follow-up. They were last seen on 11/22/[address] Worley with the following recommendations/adjustments: - continue Bupropion XL 150 mg daily - transfer care to PCP - vet presented on 04/28/24 regarding alcohol use > purchased naltrexone, did not start Most recent visit summary: - stable mood good, meds helpful, denied anhedonia/hopelessness, sleeping well, fair appetite, no SI/HI/AVH - reduced alcohol use, enjoys country drives and walks outside - voiced feeling comfortable following up with PCP for transfer back to primary care given stability - vet presented to clinic on 04/28/24 requesting assistance with alcohol use (drinks 3 beers per day) > purchased Naltrexone online, has not started INTERVAL HISTORY: Today on interview, Eran reports after leaving Dr. Worley he had plans to move but that fell through. He states when he was working with Dr. Worley, he spoke with him about his alcohol use. He has struggled with alcohol use then, decided to purchase Naltrexone 50 mg but held off on starting it so that he can speak with a physician. He notes that he was able to stop tobacco smoke with Wellbutrin in the past. He is still taking Bupropion XL (states he began 2 years ago). He denies concerns for depression, endorses stable appetite, mood, motivation. He is drinking three 12oz beers per day. He denies intoxication, aggression. He states he lives alone and mostly drinks at home, usually in the evening (before dark). He denies withdrawal or seizures.Eran states that he drinks because he is used to doing it (and describes it as a habit, that he drinks at specific times of the day)-- We discussed different activities he can do to replace the use of alcohol such as exercise, cross-word puzzles, using herbal teas instead of turning to alcohol. He states he is interested in trying these techniques out as well as starting the Naltrexone if his lab values look good. MEDICATION SIDE EFFECTS: None. 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 at recent visits has reported continued ability to cut back on alcohol intake, but in 04/2024 had been drinking up to 3 beers per day and wished to reconnect with psychiatry for further support. OUTPATIENT MEDICATIONS: Active Outpatient Medications (including Supplies): Active Outpatient Medications Status 1) ATORVASTATIN CALCIUM 80MG TAB TAKE ONE TABLET BY ACTIVE MOUTH EVERY EVENING FOR HIGH CHOLESTEROL REPORT ANY UNEXPLAINED MUSCLE PAIN/WEAKNESS TO PROVIDER. 2) BRIMONIDINE 0.2%/BRINZOLAMID 1% OPH SUSP INSTILL 1 ACTIVE (S) DROP IN BOTH EYES THREE TIMES A DAY FOR GLAUCOMA 3) BUPROPION HCL 150MG 24HR SA TAB TAKE ONE TABLET BY ACTIVE MOUTH ONCE A DAY FOR DEPRESSION SWALLOW WHOLE - DO NOT CRUSH OR CHEW. 4) GABAPENTIN 100MG CAP TAKE TWO CAPSULES BY MOUTH THREE ACTIVE TIMES A DAY FOR POST HERPATIC NEURALGIA 5) HCTZ 12.5MG/LOSARTAN 50MG TAB TAKE 1 TABLET BY MOUTH ACTIVE (S) EVERY MORNING FOR HIGH BLOOD PRESSURE TO LOWER BLOOD PRESSURE 6) LATANOPROST 0.005% OPH SOLN INSTILL 1 DROP IN BOTH ACTIVE (S) EYES EVERY EVENING FOR GLAUCOMA. KEEP REFRIGERATED UNTIL READY TO USE, THEN STORE AT ROOM TEMPERATURE FOR MAXIMUM OF 42 DAYS. 7) METHOCARBAMOL 500MG TAB TAKE 1 TABLET BY MOUTH THREE ACTIVE TIMES A DAY NEEDED FOR MUSCLE SPASM 8) SODIUM FLUORIDE 1.1% TOOTHPASTE USE DIRECTED BY ACTIVE MOUTH ONCE A DAY FOR DENTAL HEALTH TOOTHPASTE (DO NOT SWALLOW) 9) TIMOLOL MALEATE 0.5% OPH SOLN INSTILL 1 DROP IN BOTH ACTIVE EYES EVERY MORNING FOR GLAUCOMA. Active Non-VA Medications Status 1) Non-VA CICLOPIROX OLAMINE 0.77% TOP GEL SPARINGLY TO ACTIVE AFFECTED AREA(S) AT BEDTIME 2) Non-VA PAPAVERINE INJ INTRAMUSCULARLY NEEDED ACTIVE 11 Total Medications No medications found. ACTIVE OUTPATIENT INJECTIONS AND INPATIENT MEDICATIONS No medications found. PSYCHIATRIC SPECIALTY EXAMINATION: ====== MSE: *Appearance: 68 yo black male who appears approximately stated age, wearing casual clothing, good grooming *Behavior: cooperative, engaged, not in acute distress nor acutely agitated *Speech: normal rate, volume, and prosody. Normal latency *Eye contact: Appropriate, good *Movements: No PSA/PSR; no mannerisms, tics, dystonic reactions, tardive movements or other abnormal movements appreciated *Mood: good *Affect: Congruent, euthymic, full range *Thought [...] 0.03 10*3/uL 11/23/2023 11:00 CHEM 7: SODIUM 140 mEq/L 11/23/2023 11:00 POTASSIUM 3.9 mEq/L 11/23/2023 11:00 CHLORIDE 109 H mEq/L 11/23/2023 11:00 UREA NITROGEN 13.3 mg/dL 11/23/2023 11:00 CREATININE 0.99 mg/dL 11/23/2023 11:00 CALCIUM 9.7 mg/dL 11/23/2023 11:00 CARBON DIOXIDE 19 L mEq/L 11/23/2023 11:00 GLUCOSE 120 H mg/dL 11/23/2023 11:00 EGFR (CKD-EPI 2020) 83.5 11/23/2023 11:00 HEPATIC PANEL: No data available SGPT: 20 U/L (11/23/23 11:00) SGOT:23 U/L (11/23/23 11:00) TRIGLYCERIDES:131 mg/dL (11/23/23 11:00) CHOLESTEROL: CHOLESTEROL 217 H mg/dL 11/23/2023 11:00 HEMOGLOBIN AL2:HGA1C 6.1 H % 11/23/2023 11:00 TSH:No TSH (2YR) EO data found ASSESSMENT: PAULAERAN is a 68-year-old MALE with a PPH of MDD, alcohol use and a PMH of HLD and HTN who presents to clinic for follow-up. Today, Eran presents with concerns for habitual alcohol consumption (3 beers daily) as he desires to stop and wishes to trial naltrexone. We discussed the medication, side effects, and various activities he can implement to curb his alcohol consumption. He does not reports any symptoms of withdrawal or seizures. His alcohol use appears to be mild currently as it has not significantly impacted his functioning. The is not suicidal/homicidal, not clinically intoxicated, [...] (consider use disorder, mild) PLAN: ===== - LFTs ordered > will call vet w/ results; if values (AST, ALT) <100, may start Naltrexone - start Naltrexone 25 mg for 1 week, then increase to 50 mg daily for alcohol cravings - vet purchased from cell support operator and was provided 180 tablets - continue Bupropion XL 150 mg daily for depression EDUCATION: - Educated to be compliant and [...] resources in detail. The was informed to [phone] for ROUTINE questions/concerns, to call [employer] Crisis Line and press 1 for URGENT or EMERGENT situations or to call 911 or present to the nearest ER. Also, the was advised that the [facility] ER is available to the pt. on a / basis if needed. Informed Consent: The diagnosis, [...] described above. FOLLOW-UP: Return to clinic in 4-6 weeks TIME: 30 minutes Waldemar Ford MD Psychiatry /es/ WALDEMAR FORD MD [facility] Psychiatrist Signed: 05/18/2024 13:42 05/18/2024 ADDENDUM STATUS: COMPLETED Contacted vet at cell phone listed in chart, confirmed ID via and last 4 of social. Informed vet of his CMP results, LFTs wnl, and that he may begin taking Naltrexone as discussed. Vet voiced understanding and stated he will start taking the medication tomorrow. /es/ MD MARITO GALLO [facility] Psychiatrist Signed: 05/18/2024 14:49 WALDEMAR FORD [facility]
--- OUTSIDE RECORDS SUMMARY | 2025-02-07 09:49 | XMS_ITS | Encounter Summary ---
Author Name [facility] Address [address] [place] [address] Care Team Providers Care Horse Doctor Name Role Phone CHITRA CASTANEDA Primary Care [...] Najera's Name Patient's Relationship to Policy Najera [facility] (WNR) MEDICARE ADVANTAGE [facility] (WNR) Jun 23, 2021 [id number] Devin GALINDO PATIENT Selected Encounter This section includes the information on record at ME for the Encounter. Date/Time Encounter Type Encounter Description Reason Provider Source Jun 20, 2024 01:00 PM OFFICE O/P EST LOW 20 [facility] - IND ICD-10-CM F10.90 Alcohol use, unspecified, uncomplicated BRADEN FORD IHAmarjit Encounter Template Text not used by [facility] Assessments - Encounter Diagnoses This section includes the primary and secondary diagnoses documented for the Encounter. Date/Time Primary/Secondary Diagnosis Diagnosis Name Provider Source Jun 20, 2024 01:22 PM PRIMARY Alcohol use, unspecified, uncomplicated BRADEN FORD [facility] Jun 20, 2024 01:22 PM SECONDARY Insomnia, unspecified BRADEN FORD [facility] Plan of Treatment: Future Appointments (+ 6 months) and Future Tests (+/- 45 days) The Plan of Treatment section includes future care activities for the patient from all [place] treatmentfaallegh[facility] healthities. This section includes future appointments and future orders which are active, pending or scheduled. Future Appointments This section includes appointments that were scheduled to occur 6 months from the date of the Encounter, up to a maximum of 20 appointments. The data comes from all [place] treatment facilities. Appointment Date/Time Appointment Type Appointme nt Facility Name Jul 10, 2024 10:00 AM AMBULATORY - MEDICINE [facility] Jul 24, 2024 01:00 PM AMBULATORY - SURGERY [facility] Aug 01, 2024 11:30 AM AMBULATORY - PSYCHIATRY [facility] Sep 15, 2024 01:00 PM AMBULATORY - SURGERY [facility] Oct 31, 2024 01:00 PM AMBULATORY - PSYCHIATRY [facility] Nov 07, 2024 03:00 PM AMBULATORY - MEDICINE [facility] Nov 09, 2024 01:30 PM AMBULATORY - SURGERY [facility] Nov 18, 2024 07:37 PM AMBULATORY - MEDICINE [facility] Dec 12, 2024 10:00 AM AMBULATORY - NONE [facility] Lab Results: +/- 30 days of the encounter This section includes the Chemistry and Hematology Lab Results on record with ME for the patient. Radiology Reports and Pathology Reports are provided separately, in subsequent sections. Lab Results This section contains the Chemistry/Hematology Results that were resulted 30 days before or 30 daysafter the date of the Encounter. Date/Time Source Result Type Result - Unit Interpretation Reference Range Specimen Type Comment Jul 05, 2024 11:[address] [facility] VITAMIN D, 25-HYDROXY SERUM Specimen Type: SERUM No comment entered. Ordering Provider: CHITRA CASTANEDA Report Released Date/Time: Mar 03, 2024 10:21 AM Reporting Lab: [facility] [address] [place] [id number] Performing Lab: [address] [address] VITAMIN D, 25-HYDROXY 23.8 ng/mL L 30-96 Jul 05, 2024 11:[address] [facility] PROST. SPECIFIC AG.(PB-STL) SERUM Specimen Ty pe: SERUM Comment: The listed sex of this patient may not be a typical indication for this test. Therefore, reference ranges or interpretive criteria listed may not be valid. Clinical correlation suggested. Ordering Provider: CHITRA CASTANEDA Report Released Date/Time: Mar 03, 2024 10:21 AM Reporting Lab: [address] [address] Performing Lab: [address] [phone] PROST. SPECIFIC AG.(PB-STL) <0.100 ng/mL 0-4 Jul 05, 2024 11:[address] [facility] HGA1C BLOOD Specimen Type: BLOOD No comment entered. Ordering Provider: CHITRA CASTANEDA Report Released Date/Time: Mar 03, 2024 10:21 AM Reporting Lab: [address] [address] Performing Lab: [address] [address] HGA1C 5.7 4.0-6.0 Jul 05, 2024 11:[address] [facility] LIPID PANEL (STL) PLASMA Specimen Type: PLASM A Comment: No hemolysis noted. Ordering Provider: CHITRA CASTANEDA Report Released Date/Time: Mar 03, 2024 10:21 AM Reporting Lab: [address] [address] Performing Lab: [address] [address] CHOLESTEROL 220 mg/dL H 0-200 TRIGLYCERIDE 159 mg/dL H 0-150 CALCULATED LDL 123 mg/dL HDL(New) 65 mg/dL >40 Jul 05, 2024 11:54 AM [facility] COMPREHENSIVE METABOLIC PANEL PLASMA Specimen Type: PLASMA Comment: No hemolysis noted. Ordering Provider: BRADEN FORD Report Released Date/Time: Jun 20, 2024 01:13 PM Reporting Lab: [facility] [address] [facility] [address] Performing Lab: [facility] [address] [facility] [address] CREATININE 1.04 mg/dL 0.7-1.3 UREA NITROGEN 10.4 [...] and tobacco- related health factors from the ME facility where the Encounter took place. Current Smoking Status This section includes the most current smoking, or tobacco-related health factor, from the ME facility where the Encounter took place. Date/Time Current Smoking Status Comment Parvez reynoso May 18, 2024 01:04 PM VA-TOBACCO FORMER USER [facility] Tobacco Use History This section includes a history of the smoking, or tobacco-related health factors, that were collected on or before the date of the Encounter. The data comes from the ME facility where the Encounter took place. Date/Time Smoking Status/Tobacco Use Comment Ez ambriz May 18, 2024 01:04 PM VA-TOBACCO QUIT 15 YRS OR MORE [facility] December 30, 2018 07:34 PM LIFETIME NON-USER OF TOBACCO [facility] May 03, 2018 05:45 PM LIFETIME NON-USER OF TOBACCO [facility] May 13, 2016 03:31 PM LIFETIME NON-USER OF TOBACCO [facility] Mar 12, 2015 01:23 PM QUIT TOBACCO >7 YEARS AGO [facility] January 12, 2014 10:16 AM LIFETIME NON-USER OF TOBACCO [facility] Mar 02, 2013 11:09 AM QUIT TOBACCO >7 YEARS AGO [facility] Jul 26, 2008 02:17 PM QUIT TOBACCO >7 YEARS AGO [facility] Advance Directives: All historical and current Section Date Range: From patient's date of to the date document was created. This section includes ALL of a patient's completed or amended [place] Advance and Rescinded Directives. The entries below indicate that a directive exists for the patient, but an actual copy is not included with this document. The data comes from all [place] facilities. Date Advance Directives Provider Source Apr 02, 2016 ADVANCE DIRECTIVE DISCUSSION UDAY BREEN [facility] Encounter Notes: All associated encounter notes This section contains the clinical notes associated to the Encounter. Date/Time Encounter Note(s) Provider Source Jul 10, 2024 12:33 PM PHYSICIAN LETTERS: LOCAL TITLE: TEST RESULT GENERAL LETTER [facility] STANDARD TITLE: PHYSICIAN LETTERS DATE OF NOTE: JUL 10, 2024@12:33 ENTRY DATE: JUL 10, 2024@12:33:23 AUTHOR: BRADEN FORD EXP COSIGNER: URGENCY: STATUS: COMPLETED [facility] [address] [place] [address] JUL 10, 2024 ERAN GALINDO [address] [place], [place] [address] Dear Eran Galindo, I would like to update you on your recent test results. LIPID PROFILE - High cholesterol and triglycerides (lipids) are risk factors for heart disease. Your cholesterol should fall between 140 and 200, and your triglycerides levels should be less than or equal to 150. HDL is the good cholesterol and should ideally be greater than 40. LDL is the bad cholesterol and optimal levels should be less than 100 (near optimal is between 100 and 129). TRIGLYCERIDE 159 H mg/dL 07/05/2024 11:54 CHOLESTEROL 220 H mg/dL 07/05/2024 11:54 HDL(New) 65 mg/dL 07/05/2024 11:54 CALCULATED LDL 123 mg/dL 07/05/2024 11:54 No DIRECT LDL EO data found These results are abnormal. Please speak with your PCP about how to manage these values. Your triglycerides are slightly elevated as well as your total cholesterol. HEMOGLOBIN A1C - Gives us information about your diabetes (sugar or glucose) control over the past 3 months. Your target is to keep your A1C below 6 %. HGA1C 5.7 % 07/05/2024 11:54 These readings are within normal limits. CBC - A complete blood count (CBC) gives important information about the kinds and numbers of cells in the blood, especially red blood cells, white blood cells, and platelets. HGB 13.8 g/dL 11/23/2023 11:00 HEMATOCRIT 40.1 % (11/23/23 11:00) PLT 310 10*3/uL 11/23/2023 11:00 WHITE BLOOD COUNT 5.4 10*3/uL (11/23/23 11:00) These readings are within normal limits. CHEM 7 - This is important information about the current status of your kidneys, liver, and electrolyte and acid/base balance as well as of your blood sugar and blood proteins. SODIUM 139 mEq/L 07/05/2024 11:54 POTASSIUM 4.1 mEq/L 07/05/2024 11:54 CHLORIDE 108 H mEq/L 07/05/2024 11:54 UREA NITROGEN 10.4 mg/dL 07/05/2024 11:54 CREATININE 1.04 mg/dL 07/05/2024 11:54 CALCIUM 9.8 mg/dL 07/05/2024 11:54 CARBON DIOXIDE 21 L mEq/L 07/05/2024 11:54 GLUCOSE 98 mg/dL 07/05/2024 11:54 EGFR (CKD-EPI 2020) 78.2 07/05/2024 11:54 The results are similar to previous values and not a clinical concern. LIVER FUNCTION PANEL - These are tests for liver function: PROTEIN 7.4 g/dL 07/05/2024 11:54 ALBUMIN 4.2 g/dL 07/05/2024 11:54 TOTAL BILIRUBIN 0.2 mg/dL 07/05/2024 11:54 ALKALINE PHOSPHATASE 119 U/L 07/05/2024 11:54 AST/SGOT 20 U/L 07/05/2024 11:54 ALT/SGPT 25 U/L 07/05/2024 11:54 These readings are within normal limits. VITAMIN D - Helps promote the proper utilization of calcium and phosphorus, thereby producing proper bone maintenance. VITAMIN D, 25-HYDROXY 23.8 L ng/mL 07/05/2024 11:54 These results are abnormal. I will send you an oral supplement to take daily. Spending approximately 30-45 minutes in sunlight daily will also help boost these levels. PLAN Please continue your treatment as we discussed during your visit. If you have any questions please call your briefcase sewer. I look forward to seeing you at your next clinic appointment. Thank you for choosing the [facility] for your healthcare. Your Vitamin D levels were low. A supplement will be sent to you via mail to take daily. Spending time in the sun will also help. Your cholesterol levels were elevated--I recommend you speak to your PCP about next steps to address this. FUTURE APPOINTMENTS: 07/24/2024 13:00 [facility]Y RON STAPLES 08/01/2024 11:30 -[facility] IND PSI 2 09/15/2024 13:00 [facility]-OPHTH GLAUCOMA 11/14/2024 08:30 [facility]-DENTAL HYG 1 Sincerely, BRADEN FORD MD [facility] Psychiatrist ERAN GALINDO DEREK [facility] Jun 20, 2024 12:54 PM PSYCHIATRY NOTE: LOCAL TITLE: PSYCHIATRY [facility] STANDARD TITLE: PSYCHIATRY NOTE DATE OF NOTE: JUN 20, 2024@12:54 ENTRY DATE: JUN 20, 2024@12:54:10 AUTHOR: BRADEN FORD EXP COSIGNER: URGENCY: STATUS: COMPLETED PSYCHIATRIC FOLLOW-UP NOTE [facility] Name: ERAN GALINDO Age: 68 Gender: MALE Visit Date: JUN 20, 2024 Time: [id number] REASON FOR ENCOUNTER: PAULAERAN is a 68-year-old MALE with a PPH of MDD, alcohol use and a PMH of HLD and HTN who presents to clinic for follow-up. They were last seen on 05/18/24 with the following recommendations/adjustments: - start Naltrexone 50 mg daily - continue Bupropion XL 150 mg daily - labs wnl Most recent visit summary: - stopped tobacco use on Wellbutrin, purchased Naltrexone from disaster recovery specialist - drinking 3 12oz beers daily, denied intoxication or aggresssion - lives alone, drinks out of habit, mostly in the evenings > discussed replacing drinking alcohol with healthier alternatives (doing an enjoyable activity, drinking teas, exercise, puzzles) - denied depressive sxs INTERVAL HISTORY: Today on interview, Eran reports that things have been terrific since starting Naltrexone. He denies any side effects. He reports that it has been around 30% effective. He reports that in the past week, he drank on (2 beers) and last night (2 beers). He reports that his energy and sleep are both better. He states that he has been cleaning his house and feels that he is more motivated. He explains on he rewarded himself with a drink for doing well and doing a lot of work. He states that yesterday he had an argument with someone which prompted his drinking. He notes that his irritability has improved as well. He denies concerns for depression. MEDICATION SIDE EFFECTS: None. 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 at recent visits has reported continued ability to cut back on alcohol intake, but in 04/2024 had been drinking up to 3 beers per day and wished to reconnect with psychiatry for further support. Began treatment with Wellbutrin in 2021 for tobacco cessation. OUTPATIENT MEDICATIONS: Active Outpatient Medications (including Supplies): Active Outpatient Medications Status 1) BRIMONIDINE [...] TEMPERATURE FOR MAXIMUM OF 42 DAYS. 5) SODIUM FLUORIDE 1.1% TOOTHPASTE USE DIRECTED BY ACTIVE MOUTH ONCE A DAY FOR DENTAL HEALTH TOOTHPASTE (DO NOT SWALLOW) 6) TIMOLOL MALEATE 0.5% OPH SOLN INSTILL 1 [...] 3) Non-VA PAPAVERINE INJ INTRAMUSCULARLY NEEDED ACTIVE 9 Total Medications No medications found. ACTIVE OUTPATIENT INJECTIONS AND INPATIENT MEDICATIONS No medications found. PSYCHIATRIC SPECIALTY EXAMINATION: ====== MSE: *Appearance: 68 yo black male who appears approximately stated age, wearing casual clothing, good grooming, injected sclera *Behavior: cooperative, engaged, not in acute distress nor acutely agitated *Speech: normal rate, volume, and prosody. Normal latency *Eye contact: Appropriate, good *Movements: No PSA/PSR; no mannerisms, tics, dystonic reactions, tardive movements or other abnormal movements appreciated *Mood: pretty good *Affect: Congruent, euthymic, full range *Thought Process: linear, logical, coherent *Thought Content: Does not endorse SI, HI, or AVH. No evidence of [...] 0.03 10*3/uL 11/23/2023 11:00 CHEM 7: SODIUM 142 mEq/L 05/18/2024 13:41 POTASSIUM 3.9 mEq/L 05/18/2024 13:41 CHLORIDE 110 H mEq/L 05/18/2024 13:41 UREA NITROGEN 16.8 mg/dL 05/18/2024 13:41 CREATININE 0.91 mg/dL 05/18/2024 13:41 CALCIUM 10.1 mg/dL 05/18/2024 13:41 CARBON DIOXIDE 21 L mEq/L 05/18/2024 13:41 GLUCOSE 104 H mg/dL 05/18/2024 13:41 EGFR (CKD-EPI 2020) 92.4 05/18/2024 13:41 HEPATIC PANEL: No data available SGPT: 21 U/L (05/18/24 13:41) SGOT:25 U/L (05/18/24 13:41) TRIGLYCERIDES:131 mg/dL (11/23/23 11:00) CHOLESTEROL: CHOLESTEROL 217 H mg/dL 11/23/2023 11:00 HEMOGLOBIN AL2:HGA1C 6.1 H % 11/23/2023 11:00 TSH:No TSH (2YR) EO data found ASSESSMENT: PAULAERAN is a 68-year-old MALE with a PPH of MDD, alcohol use and a PMH of HLD and HTN who presents to clinic for follow-up. Today, Eran notes reduction in alcohol consumption since started Naltrexone; he is no longer drinking daily and his overall use when he does drink has also decreased. Secondary to this change, he has also become more motivated, energetic, and has noted improvement in his mood. He continues to drink, but to a lesser extent. He occasionally has nighttime awakenings for which we discussed starting melatonin prn. No acute concerns for depression. The is not suicidal/homicidal, not clinically intoxicated, [...] (consider use disorder, mild) PLAN: ===== - start Melatonin 2 mg qhs prn for insomnia - start Naltrexone 50 mg daily for alcohol cravings - vet purchased from disaster recovery specialist and was provided 180 tablets - continue Bupropion XL 150 mg daily for depression - Apr 2024: LFTs/CMP wnl > LFTs due next visit (July 2024) EDUCATION: - Educated to be compliant and [...] resources in detail. The was informed to [phone] for ROUTINE questions/concerns, to call [facility] 411 and press 1 for URGENT or EMERGENT situations or to call 911 or present to the nearest ER. Also, the was advised that the [facility] ER is available to the pt. [...] described above. FOLLOW-UP: Return to clinic in 5-6 weeks TIME: 30 minutes Braden Ford MD Psychiatry /es/ BRADEN FORD MD [facility] Psychiatrist Signed: 06/20/2024 13:[address] [facility]
--- OUTSIDE RECORDS SUMMARY | 2025-02-07 09:49 | XMS_ITS | Encounter Summary ---
Author Name [facility] [place] [facility] [place] Address [address] [place] [address] Care Team Providers Care Strategic Marketing Specialist Name Role Phone LEONELESTHERNatanael Primary Care Provider [...] Najera's Name Patient's Relationship to Policy Naj[facility] (WNR) MEDICARE ADVANTAGE [facility] (WNR) Jun 23, 2021 [id number] 03 Devin MITCHELL PATIENT Selected Encounter This section includes the information on record at [place] for the Encounter. Date/Time Encounter Type Encounter Description Reason Provider Source Nov 18, 2024 07:37 PM Outpatient Encounter EMERGENCY DEPT CHANDLER CORRALES Encounter Template Text not used by [facility] Plan of Treatment: Future Appointments (+ 6 months) and Future Tests (+/- 45 days) The Plan of Treatment section includes future care activities for the patient from all VA treatmentfacilities. This section includes future appointments and future orders which are active, pending or scheduled. Future Appointments This section includes appointments that were scheduled to occur 6 months from the date of the Encounter, up to a maximum of 20 appointments. The data comes from all [facility]. Appointment Date/Time Appointment Type Appointme nt Facility Name Dec 12, 2024 10:00 AM AMBULATORY - NONE [facility] December 21, 2024 01:30 PM AMBULATORY - SURGERY . [facility] Jan 22, 2025 01:30 PM AMBULATORY - PSYCHIATRY [facility] Feb 12, 2025 01:30 PM AMBULATORY - MEDICINE [facility] Mar 12, 2025 01:00 PM AMBULATORY - NONE [facility] May 01, 2025 01:30 PM AMBULATORY - PSYCHIATRY [facility] May 17, 2025 02:00 PM AMBULATORY - SURGERY [facility] Active, Pending, and Scheduled Orders This section includes a listing of several types of active, pending, and scheduled orders, including clinic medications orders, diagnostic test orders, procedure orders and consult orders; where the start date of the order is 45 days before the date of the Encounter or 45 days after the date of theEncounter. The data comes from all [facility]. Test Date/Time Test Type Test Details Facility Name Dec 12, 2024 12:00 AM Laboratory - Chemi stry Order OCCULT BLOOD FIT X1 SCREEN STOOL FECES SP [facility] Lab Results: +/- 30 days of the encounter This section includes the Chemistry and Hematology Lab Results on record with [place] for the patient. Radiology Reports and Pathology Reports are provided separately, in subsequent sections. Lab Results This section contains the Chemistry/Hematology Results that were resulted 30 days before or 30 daysafter the date of the Encounter. Date/Time Source Result Type Result - Unit Interpretation Reference Range Specimen Type Comment Dec 04, 2024 11:[address] [facility] OCCULT BLOOD FIT X1 SCREEN FECES Specimen Typ e: FECES No comment entered. Ordering Provider: CHITRA CASTANEDA Report Released Date/Time: Nov 07, 2024 03:30 PM Reporting Lab: [facility] [address] [id number] Performing Lab: [facility] [address] [address] OCCULT BLOOD (FIT) #1 OF 1 Negative Nega tive Nov 18, 2024 08:06 PM [facility] COVID-19 DIAGNOSTIC (FLU/RSV)(STL) NASOPHARYNX Spec imen Type: [...] Nov 18, 2024 08:03 PM Reporting Lab: [place] [address] [id number] Performing Lab: [address] [address] INFLUENZA A NEG Negative INFLUENZA B NEG [...] 07:39 PM 98.5 64 156/89 16 96 [facility] Social History: Smoking Status (Most current) and Tobacco Use (All prior to encounter date) This section includes the most current, and the historical, smoking and tobacco- related health factors from the [place] facility where the Encounter took place. Current Smoking Status This section includes the most current smoking, or tobacco-related health factor, from the [place] facility where the Encounter took place. Date/Time Current Smoking Status Comment Facil ity May 18, 2024 01:04 PM [place]-TOBACCO FORMER USER [facility] Tobacco Use History This section includes a history of the smoking, or tobacco-related health factors, that were collected on or before the date of the Encounter. The data comes from the [place] facility where the Encounter took place. Date/Time Smoking Status/Tobacco Use Comment F acility May 18, 2024 01:04 PM VA-TOBACCO QUIT 15 YRS OR MORE [facility] December 30, 2018 07:34 PM LIFETIME NON-USER OF TOBACCO [facility] May 03, 2018 05:45 PM LIFETIME NON-USER OF TOBACCO [facility] May 13, 2016 03:31 PM LIFETIME NON-USER OF TOBACCO [facility] Mar 12, 2015 01:23 PM QUIT TOBACCO >7 YEARS AGO [facility] January 12, 2014 10:16 AM LIFETIME NON-USER OF TOBACCO [facility] Mar 02, 2013 11:09 AM QUIT TOBACCO >7 YEARS AGO [facility] Jul 26, 2008 02:17 PM QUIT TOBACCO >7 YEARS AGO [facility] Advance Directives: All historical and current Section Date Range: From patient's date of to the date document was created. This section includes ALL of a patient's completed or amended [place] Advance and Rescinded Directives. The entries below indicate that a directive exists for the patient, but an actual copy is not included with this document. The data comes from all [place] facilities. Date Advance Directives Provider Source Apr 02, 2016 ADVANCE DIRECTIVE DISCUSSION UDAY BREEN [facility] Radiology Reports: +/- 30 days of [...] the Encounter. The data comes from all [place] treatment facilities. Date/Time Radiology Report Provider Source Nov 18, 2024 07:46 PM CHEST X-RAY, 2 VIE WS: TRA MITCHELL [id number] -[id number] M Ex Date: NOV 18, 2024@19:46 Req Phys: NEVA,ALBERTO D Pat Loc: [facility]-EMERGENCY DEPT 3RD SHIFT (R Img Loc: -MAIN RADIOLOGY SUITE Service: [facility], [address] [place] [address] (Case [id number] COMPLETE) CHEST X-RAY, 2 VIEWS (RAD Detailed) CPT:52181 Reason for Study: PNA rule out Clinical History: Report Status: Verified Date Reported: NOV 18, 2024 Date Verified: NOV 18, 2024 Business Administration Professor E-Sig: Report: Procedure: CHEST X-RAY, 2 VIEWS Clinical history: PNA rule out Comparison: Chest x-rays of November 14, 2018. Technique: The study was protocoled and supervised at the local [place] facility. Study was sent to [place] national teleradiology program (NTP) for interpretation. Frontal [...] recent exams. READING PHYSICIAN: Pepe Watson M.D. -[phone] 11/18/2024 15:35 [facility] National Teleradiology Program [phone] (For Medical Practitioner Use Only) Attention Patients / Veterans: If you have questions or concerns about these test results, please contact your ordering provider or primary care team. Primary Interpreting Staff: RADIOLOGY,OUTSIDE SERVICE, Staff Physician / RADIOLOGY,OUTSIDE SERVICE [facility] Encounter Notes: All associated encounter notes This section contains the clinical notes associated to the Encounter. 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 pt taking meds as prescribed, denied worsening symptoms but is unsatisfied with care, related he did not get at [facility] and would like one to rule out PNA. pt endorsed productive cough, congestion Level of Consciousness (AVPU): Alert = Appears aware of and responsive to the environment on their own. Follows commands, opens eyes spontaneously, and tracks objects. Vital Signs: Vital signs previously recorded this visit: Date Vital Measurement Qualifiers 11/18/2024 19:39 Temp F (C) 98.5 (36.9) Pulse 64 Respir 16 BP 156/89 POx (L/Min)(%) 96 National Early Warning Score (NEWS): The NEWS total is 0. 1. Temperature (C/F): Score = 0 36.1 - 38.0 C (96.9 - 100.4 F) 2. Pulse: Score = 0 51-90 3. Respirations: Score = 0 12-20 4. Blood Pressure (Only Systolic BP, mmHg): Score = 0 111-219 5. Pulse Oximetry: Score = 0 96% or greater 6. Supplemental oxygen in use: Score = 0 No 7. AVPU: Score = 0 Alert Pain: No pain Suicide Screen: [place] Suicide Severity Rating Scale (C-SSRS) screener 1. Over the past month, have you [...] required due to responses to other questions. Emergency Severity Index (YECENIA) level: Level 4 Previously documented allergies: IODINATED CONTRAST MEDIA, TRAVATAN Z, SLO-NIACIN TABLET, DORZOLAMIDE, COSOPT Current Problems: 1) Hyperlipidemia (SNOMED CT 80383934) 2) Obesity (SNOMED CT 921187995) 3) Screening for Diabetes Mellitus (ICD-9-CM V77.1) 4) Impaired fasting glycaemia (SNOMED CT 186859385) 5) Open-Angle, Chronic 6) Encounter for Therapeutic Drug Monitoring (ICD-9-CM V58.83) 7) Hematospermia 8) Allergic rhinitis 9) Herpes zoster 10) Normal tension glaucoma 11) Recurrent depression 12) Admits alcohol use 13) Ventral hernia 14) Erectile dysfunction following radical prostatectomy (SNOMED CT 662456442462973) 15) Benign essential hypertension 16) History of malignant neoplasm of prostate 17) Vitamin D deficiency /sadaf/ CASA LIMA, RN REGISTERED NURSE Signed: 11/18/2024 19:42 11/18/2024 ADDENDUM STATUS: COMPLETED 2009 swab collected and sent /sadaf/ CASA LIMA, RN REGISTERED NURSE Signed: 11/18/2024 20:12 CHANDLER CORRALES [facility]
--- OUTSIDE RECORDS SUMMARY | 2025-02-07 09:49 | XMS_ITS | Encounter Summary ---
Author Name [facility] [place] [facility] [place] [facility] [place] Address [address] [place] [address] Care Team Providers Care Lead Investigator Name Role Phone CHITRA CASTANEDA Primary Care [...] Najera's Name Patient's Relationship to Policy Najera [facility] (WNR) MEDICARE ADVANTAGE [facility] (WNR) Jun 23, 2021 [id number] Devin MITCHELL PATIENT Selected Encounter This section includes the information on record at [place] for the Encounter. Date/Time Encounter Type Encounter Description Reason Provider Source Jan 22, 2025 01:30 PM OFFICE O/P EST LOW 20 [facility] - IND ICD-10-CM F33.0 Major depressive disorder, recurrent, mild BRADEN FORD IHAmarjit Encounter Template Text not used by VA Assessments - Encounter Diagnoses This section includes the primary and secondary diagnoses documented for the Encounter. Date/Time Primary/Secondary Diagnosis Diagnosis Name Provider Source Jan 22, 2025 01:50 PM PRIMARY Major depressive disorder, recurrent, mild BRADEN FORD [facility] Jan 22, 2025 01:50 PM SECONDARY Alcohol dependence with unspecified alcohol-induced disorder BRADEN FORD [facility] Plan of Treatment: Future Appointments (+ 6 months) and Future Tests (+/- 45 days) The Plan of Treatment section includes future care activities for the [facility] [place] [facility] This section includes future appointments and future orders which are active, pending or scheduled. Future Appointments This section includes appointments that were scheduled to occur 6 months from the date of the Encounter, up to a maximum of 20 appointments. The data comes from all [facility]. Appointment Date/Time Appointment Type Appointme nt Facility Name Feb 12, 2025 01:30 PM AMBULATORY - MEDICINE [facility] Mar 12, 2025 01:00 PM AMBULATORY - NONE [facility] May 01, 2025 01:30 PM AMBULATORY - PSYCHIATRY [facility] May 17, 2025 02:00 PM AMBULATORY - SURGERY [facility] Jul 09, 2025 10:00 AM AMBULATORY - NONE [facility] Jul 23, 2025 01:00 PM AMBULATORY - SURGERY [facility] Active, Pending, and Scheduled Orders This section includes a listing of several types of active, pending, and scheduled orders, including clinic medications orders, diagnostic test orders, procedure orders and consult orders; where the start date of the order is 45 days before the date of the Encounter or 45 days after the date of theEncounter. The data comes from all [facility]. Test Date/Time Test Type Test Details Facility Name Dec 12, 2024 12:00 AM Laboratory - Chemi stry Order OCCULT BLOOD FIT X1 SCREEN STOOL FECES [facility] Vital Signs: All taken on the encounter date This section contains inpatient and outpatient Vital Signs collected on the date of the Encounter. Date/Time Temperature Pulse Blood Pressure Respiratory Rate SP02 Pain Height Weight Body Mass Index Source Jan 22, 2025 01:23 PM 98.7 79 122/79 20 96 211.8 29 [facility] Social History: Smoking [...] 18, 2024 01:04 PM VA-TOBACCO FORMER USER [facility] Tobacco Use History This section includes a history of the smoking, or tobacco-related health factors, that were collected on or before the date of the Encounter. The data comes from the [place] facility where the Encounter took place. Date/Time Smoking Status/Tobacco Use Comment F acjohn May 18, 2024 01:04 PM VA-TOBACCO QUIT 15 YRS OR MORE [facility] December 30, 2018 07:34 PM LIFETIME NON-USER OF TOBACCO [facility] May 03, 2018 05:45 PM LIFETIME NON-USER OF TOBACCO [facility] May 13, 2016 03:31 PM LIFETIME NON-USER OF TOBACCO [facility] Mar 12, 2015 01:23 PM QUIT TOBACCO >7 YEARS AGO [facility] January 12, 2014 10:16 AM LIFETIME NON-USER OF TOBACCO [facility] Mar 02, 2013 11:09 AM QUIT TOBACCO >7 YEARS AGO [facility] Jul 26, 2008 02:17 PM QUIT TOBACCO >7 YEARS AGO [facility] Advance Directives: All historical and current Section Date Range: From patient's date of to the date document was created. This section includes ALL of a patient's completed or amended [place] Advance and Rescinded Directives. The entries below indicate that a directive exists for the patient, but an actual copy is not included with this document. The data comes from all [facility]. Date Advance Directives Provider Source Apr 02, 2016 ADVANCE DIRECTIVE DISCUSSION UDAY BREEN [facility] Encounter Notes: All associated encounter notes This section contains the clinical notes associated to the Encounter. Date/Time Encounter Note(s) Provider Source Jan 22, 2025 12:29 PM PSYCHIATRY NOTE: LOCAL TITLE: PSYCHIATRY [facility] STANDARD TITLE: PSYCHIATRY NOTE DATE OF NOTE: JAN 22, 2025@12:29 ENTRY DATE: JAN 22, 2025@12:29:58 AUTHOR: BRADEN FORD EXP COSIGNER: URGENCY: STATUS: COMPLETED PSYCHIATRIC FOLLOW-UP NOTE [facility] Name: ERAN MITCHELL Age: 69 Gender: MALE Visit Date: JANUARY 22, 2025 Time: 3641-3400 REASON FOR ENCOUNTER: ERAN MITCHELL is a 69-year-old MALE with a PPH of MDD, alcohol use and a PMH of HLD and HTN who presents to clinic for follow-up. They were last seen on 10/31/2024 with the following recommendations/adjustments: - continue Melatonin 2 mg qhs prn - continue Naltrexone 50 mg daily - on 11/21/2024: start Bupropion XL 150 mg daily taper as vet notes well- controlled depression > decrease to 75 mg daily until next visit (will discuss further adjustments) - if concerns for alcohol increase or withdrawal, will alternate 150 mg daily with 75 mg daily until next visit Most recent visit summary: - doing great, officially moved into new place, planning to seel his old home > will continue to receive meds at old place for now > advised to update address when he fully transitions - ALCOHOL: continued use, drinking around 2-3 days per week, 2-3 standard drinks per sitting, denies becoming intoxicated > overall feels mentally more comfortable with this intake - (I feel more comfortable like I'm in control of my drinking rather than it's in control of me.) - has been more physically active and in return has been more tired - he is using melatonin prn but not using chamamille tea - overall reported feeling good > wished to come off Wellbutrin and we discussed taper plan - denied SI, HI INTERVAL HISTORY: Since last visit, Eran reports I am doing great. He reports that for the last month he has been taking his bupropion every even day of the week. He denies any issues with this. He says that he is planning to continue the medication for now. Regarding Naltrexone, he says things are going good. He says after he drinks, the following day he has bad feelings and explains that he feels sorry that I drank. He says he has been drinking around 3 beers approximately 3 days per week (mainly on weekends); denies becoming intoxicated but he says that he feels the effects of the EtOH. He says that he is getting more settled into his new place and has been spending time outside. He is planning to get his bike ready for the season. He is planning for a hernia [facility] ([facility])--he says this is an elective surgery. Reports that his appetite has been improving and he says that he has gained some weight but reports that he is taking OTC appetite enhancer to help. Denies acute concerns for depression. MEDICATION SIDE EFFECTS: None. 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 at recent visits has reported continued ability [...] DAY Indication: FOR ASSISTANCE WITH DEPENDENCY 12) SODIUM FLUORIDE 1.1% TOOTHPASTE USE DIRECTED BY MOUTH ACTIVE TWICE A DAY TOOTHPASTE (DO NOT SWALLOW) APPLY A PEA-SIZED AMOUNT OF THE PASTE TO A TOOTHBRUSH AND BRUSH THOROUGHLY FOR TWO MINUTES, AT MORNING AND AT NIGHT; SPIT, DO NOT RINSE. DO NOT EAT, DRINK, OR RINSE FOR 30 MINUTES AFTER USE. Indication: FOR DENTAL CARIES 13) TIMOLOL MALEATE 0.5% OPH SOLN INSTILL [...] 3) Non-VA PAPAVERINE INJ INTRAMUSCULARLY NEEDED ACTIVE 16 Total Medications No medications found. ACTIVE OUTPATIENT [...] movements or other abnormal movements appreciated *Mood: great! *Affect: Congruent, euthymic, full range *Thought Process: [...] data found ASSESSMENT: PAULAERAN Ocasio is a 69-year-old MALE with a PPH of MDD, alcohol use and a PMH of HLD and HTN who presents to clinic for follow-up. Today, Eran has continued to endorsed stable mood and alcohol consumption. He has continued to drink, but has remained more cognizant of his use and his overall use has declined. Secondary to his reduction in alcohol use, he has been more motivated, energetic, and has noted improvement in his mood. No acute concerns for depression. Jon does not wish to make changes today; he has decreased his bupropion to every other day and has not noted any detrimental effects. The is not suicidal/homicidal, not clinically intoxicated, [...] daily for alcohol cravings - on 11/21/2024 started Bupropion XL 150 mg daily taper as jon notes well- controlled depression - jon is currently taking this every other day; he was advised that he may start taking this every third day in February and can discontinued by March or April 2025 (as he feels comfortable) Labs/monitoring: - Apr 2024: LFTs/CMP wnl Resources/referrals: [...] resources in detail. The was informed to [phone] for ROUTINE questions/concerns, to call [facility] Crisis Line [facility] and press 1 for URGENT or EMERGENT situations or to call 911 or present to the nearest ER. Also, the was advised that the [facility] ER is available to the pt. [...] described above. FOLLOW-UP: Return to clinic in 3 months TIME: 20 minutes in appointment, 5 minutes of chart review Braden Ford MD Psychiatry /es/ BRADEN FORD MD [facility] Psychiatrist Signed: 01/22/2025 13:50 BRADEN FORD [facility]
--- OUTSIDE RECORDS SUMMARY | 2025-02-07 09:49 | XMS_ITS | Continuity of Care Document ---
Author Name [facility] Organization [facility] Care Team Providers Care Ladle Puller Name Role Phone [facility] Unavailable Unavailable Problems Combined list of problems from Department of Defense and Veterans Affairs facilities. It does not include entries that were removed or entered in error. Problem Status Onset Date Problem Type Date of Resolution Comments Source Admits alcohol use Active Condition [facility] Allergic rhinitis Active Condition [facility] Benign essential hypertension Active Condition [facility] Encounter for Therapeutic Drug Monitoring (ICD-9-CM V58.83) Active Condition [facility] Erectile dysfunction following radical prostatectomy (SNOMED CT 976094193367118) Active Condition [facility] Hematospermia Active Condition [facility] Herpes zoster Active Condition [facility] History of malignant neoplasm of prostate Active Condition [facility] Hyperlipidemia (SNOMED CT 61479608) Active Condition [facility] Impaired fasting glycaemia (SNOMED CT 875703936) Active Condition [facility] Normal tension glaucoma Active Condition [facility] Obesity (SNOMED CT 317467218) Active Condition [facility] Open-Angle, Chronic Active Condition [facility] Recurrent depression Active Condition [facility] Screening for Diabetes Mellitus (ICD-9-CM V77.1) Active Condition [facility] Ventral hernia Active Condition [facility] Vitamin D deficiency Active Condition [facility] Diagnosis: ICD-10-CM F33.0 Major depressive disorder, recurrent, mild Active Diagnosis [facility] Diagnosis: ICD-10-CM H40.1132 Primary open-angle glaucoma, bilateral, moderate stage Active Diagnosis [facility] Diagnosis: ICD-10-CM H40.1212 Low-tension glaucoma, right eye, moderate stage Active Diagnosis [facility] Diagnosis: ICD-10-CM K03.6 Deposits [accretions] on teeth Active Diagnosis [facility] Diagnosis: ICD-10-CM J20.9 Acute bronchitis, unspecified Active Diagnosis [facility] Diagnosis: ICD-10-CM H40.1112 Primary open-angle glaucoma, right eye, moderate stage Active Diagnosis [facility] Diagnosis: ICD-10-CM I10 Essential (primary) hypertension Active Diagnosis [facility] Diagnosis: ICD-10-CM H40.1131 Primary open-angle glaucoma, bilateral, mild stage Active Diagnosis [facility] Diagnosis: ICD-10-CM N52.9 Male erectile dysfunction, unspecified Active Diagnosis [facility] Diagnosis: ICD-10-CM F10.90 Alcohol use, unspecified, uncomplicated Active Diagnosis [facility] Diagnosis: ICD-10-CM K02.53 Dental caries on pit and fissure surface penetrat into pulp Active Diagnosis [facility] Diagnosis: ICD-10-CM H40.1121 Primary open-angle glaucoma, left eye, mild stage Active Diagnosis [facility] Diagnosis: ICD-10-CM K08.499 Partial loss of teeth due to oth cause, unspecified class Active Diagnosis [facility] Diagnosis: ICD-10-CM K02.62 Dental caries on smooth surface penetrating into dentin Active Diagnosis [facility] Diagnosis: ICD-10-CM K05.322 Chronic periodontitis, generalized, moderate Active Diagnosis [facility] Diagnosis: ICD-10-CM M54.50 Low back pain, unspecified Active Diagnosis [facility] Diagnosis: ICD-10-CM Z12.11 Encounter for screening for malignant neoplasm of colon Active Diagnosis [facility] Diagnosis: ICD-10-CM Z01.21 Encounter for dental exam and cleaning w abnormal findings Active Diagnosis [facility] Medications Combined list of outpatient medications from Department of Defense and Veterans Affairs facilities.Medications provided include 1) outpatient medications from the last 15 months, and 2) patient-reported medications. Medication Details Route Status Patient Instructions Prescription Expires Prescription Number Last Dispense Date Ordering Provider Order Date Order Qty Source ATORVASTATI N CA 80MG TAB TAKE ONE TABLET BY MOUTH EVERY EVENING FOR HIGH CHOLESTE ROL REPORT ANY UNEXPLAI CALVIN MUSCLE PAIN/WEA KNESS TO PROVIDER . ORAL ACTIVE 07/11/2025 [id number] 5 ERVIN CASTANEDA AMMAD T 2023 90 [facility] ATORVASTATI N CA 80MG TAB TAKE ONE TABLET BY MOUTH EVERY EVENING FOR HIGH CHOLESTE ROL REPORT ANY UNEXPLAI CALVIN MUSCLE PAIN/WEA KNESS TO PROVIDER . ORAL DISCONT INUED 05/26/2024 [id number] 4 ERVIN CASTANEDA AMRODOLFO T 2022 90 [facility] AZITHROMYCI N 250MG TAB TAKE TWO TABLETS BY MOUTH ONCE A DAY FOR 1 DAY, THEN TAKE ONE TABLET ONCE A DAY FOR 4 DAYS FOR BRONCHIT IS ORAL 12/18/2024 [id number] 5 VU,ALBERTO D 2024 6 [facility] BENZONATATE 100MG CAP TAKE ONE CAPSULE BY MOUTH THREE TIMES A DAY NEEDED FOR COUGH ORAL 12/18/2024 [id number] 5 VU,ALBERTO D 2024 30 [facility] BRIMONIDINE 0.2%/BRINZO LAMIDE 1% SUSP,OPH INSTILL 1 DROP IN BOTH EYES THREE TIMES A DAY FOR GLAUCOMA OPHTHA LMIC ACTIVE 04/15/2025 [id number] 5 SANDRITA PULIDO 2023 32 [facility] BRIMONIDINE 0.2%/BRINZO LAMIDE 1% SUSP,OPH INSTILL 1 DROP IN BOTH EYES THREE TIMES A DAY FOR GLAUCOMA OPHTHA LMIC DISCONT INUED 06/04/2024 [id number] 4 ODELL MARIN III 2022 32 [facility] BRIMONIDINE TARTRATE 0.2% SOLN,OPH INSTILL 1 DROP IN BOTH EYES THREE TIMES A DAY FOR GLAUCOMA OPHTHA LMIC ACTIVE 12/22/2025 [id number] NARAVANE, AMEAY V 2024 30 [facility] BRIMONIDINE TARTRATE 0.2% SOLN,OPH INSTILL 1 DROP IN BOTH EYES THREE TIMES A DAY FOR GLAUCOMA OPHTHA LMIC DISCONT INUED 02/07/2025 [id number] SABBETTY JAIN,SH MATEUSZ 2024 30 [facility] BUPROPION HCL 150MG 24HR TAB,SA TAKE ONE TABLET BY MOUTH ONCE A DAY FOR DEPRESSI ON SWALLOW WHOLE - DO NOT CRUSH OR CHEW. ORAL SUSPEND ED 01/23/2026 [id number] 5 CALVO EK W 2024 90 [facility] BUPROPION HCL 150MG 24HR TAB,SA TAKE ONE TABLET BY MOUTH ONCE A DAY FOR DEPRESSI ON SWALLOW WHOLE - DO NOT CRUSH OR CHEW. ORAL DISCONT INUED (EDIT) 06/21/2025 [id number] 5 CALVO EK W 2023 90 [facility] BUPROPION HCL 150MG 24HR TAB,SA TAKE ONE TABLET BY MOUTH ONCE A DAY FOR DEPRESSI ON SWALLOW WHOLE - DO NOT CRUSH OR CHEW. ORAL DISCONT INUED (EDIT) 12/10/2024 [id number] 4 ERVIN CASTANEDA T 2023 90 [facility] BUPROPION HCL 150MG 24HR TAB,SA TAKE ONE TABLET BY MOUTH ONCE A DAY SWALLOW WHOLE - DO NOT CRUSH OR CHEW. ORAL DISCONT INUED 11/22/2024 [id number] 4 AMANDA SILVA 2023 90 [facility] BUPROPION HCL 150MG 24HR TAB,SA TAKE ONE TABLET BY MOUTH ONCE A DAY SWALLOW WHOLE - DO NOT CRUSH OR CHEW. ORAL DISCONT INUED 08/17/2024 [id number] HEMANT VAZQUEZ HER RADHA 2023 90 [facility] CHOLECALCIF REGI 50MCG (2,000UNIT) TAB TAKE ONE TABLET BY MOUTH ONCE A DAY ORAL ACTIVE 11/08/2025 [id number] 5 LEONELERVIN Elias T 2024 100 [facility] CHOLECALCIF REGI 50MCG (2,000UNIT) TAB TAKE ONE TABLET BY MOUTH ONCE A DAY ORAL DISCONT INUED 07/11/2025 [id number] 5 ERVIN CASTANEDA T 2023 [address] [facility] CICLOPIROX OLAMINE 0.77% GEL,TOP APPLY SPARINGL Y TO AFFECTED AREA(S) AT BEDTIME TOPICA L ACTIVE OMARI CARRANZA,TAHIR ISTA M 2021 [facility] FISH OIL 1000MG (500MG DHA/EPA) CAP,ORAL TAKE TWO CAPSULES BY MOUTH TWICE A DAY ORAL DISCONT INUED 05/18/2024 [id number] ERVIN CASTANEDA T 2022 200 [facility] GABAPENTIN 100MG CAP TAKE TWO CAPSULES BY MOUTH THREE TIMES A DAY FOR NERVE PAIN ORAL ACTIVE 11/08/2025 [id number] 5 ERVIN CASTANEDA T 2024 180 [facility] GABAPENTIN 100MG CAP TAKE TWO CAPSULES BY MOUTH THREE TIMES A DAY FOR POST HERPATIC NEURALGI A ORAL 05/26/2024 [id number] ERVIN CASTANEDA T 2022 180 [facility] HYDROCHLORO THIAZIDE 12.5MG/LOSA RTAN POTASSIUM 50MG TAB TAKE 1 TABLET BY MOUTH EVERY MORNING FOR HIGH BLOOD PRESSURE ORAL SUSPEND ED 11/08/2025 [id number] 5 ERVIN CASTANEDA T 2024 90 [facility] HYDROCHLORO THIAZIDE 12.5MG/LOSA RTAN POTASSIUM 50MG TAB TAKE 1 TABLET BY MOUTH EVERY MORNING FOR HIGH BLOOD PRESSURE TO LOWER BLOOD PRESSURE ORAL DISCONT INUED 04/28/2025 [id number] 5 ERVIN CASTANEDA AMMAD T 2023 90 [facility] HYDROCHLORO THIAZIDE 12.5MG/LOSA RTAN POTASSIUM 50MG TAB TAKE 1 TABLET BY MOUTH EVERY MORNING FOR HIGH BLOOD PRESSURE TO LOWER BLOOD PRESSURE ORAL DISCONT INUED 05/26/2024 [id number] 4 ERVIN CASTANEDA AMMAD T 2023 90 [facility] LATANOPROST 0.005% SOLN,OPH INSTILL 1 DROP IN BOTH EYES EVERY EVENING FOR GLAUCOMA . KEEP REFRIGER ATED UNTIL READY TO USE, THEN STORE AT ROOM TEMPERAT URE FOR MAXIMUM OF 42 DAYS. OPHTHA LMIC ACTIVE 04/15/2025 [id number] 5 SANDRITA PULIDO 2023 10 [facility] LATANOPROST 0.005% SOLN,OPH INSTILL 1 DROP IN BOTH EYES EVERY EVENING FOR GLAUCOMA . KEEP REFRIGER ATED UNTIL READY TO USE, THEN STORE AT ROOM TEMPERAT URE FOR MAXIMUM OF 42 DAYS. OPHTHA LMIC DISCONT INUED 06/04/2024 [id number] 4 ODELL MARIN III 2022 10 [facility] LIDOCAINE 5% PATCH APPLY 1 PATCH TO SKIN SITE ONCE A DAY FOR PAIN. APPLY PATCH AND PRESS FIRMLY FOR 10-15 SECONDS. KEEP ON FOR 12 HOURS THEN REMOVE PATCH FOR 12 HOURS. TRANSD ERMAL 05/17/2024 [id number] 4 OMARI CARRANZA,CHR ISTA M 2022 30 [facility] MELATONIN 1MG CAP/TAB TAKE TWO CAP/TAB BY MOUTH AT BEDTIME NEEDED FOR SLEEP ORAL ACTIVE 06/21/2025 [id number] 5 CALVO EK W 2023 180 [facility] METHOCARBAM OL 500MG TAB TAKE 1 TABLET BY MOUTH AT BEDTIME FOR MUSCLE SPASM ORAL ACTIVE 11/08/2025 [id number] ERVIN CASTANEDA T 2024 30 [facility] METHOCARBAM OL 500MG TAB TAKE 1 TABLET BY MOUTH THREE TIMES A DAY NEEDED FOR MUSCLE SPASM ORAL 05/26/2024 [id number] ERVIN CASTANEDA AMFRANCED T 2022 90 [facility] NALTREXONE (EQV-REVIA) 50MG TAB TAKE ONE TABLET BY MOUTH ONCE A DAY FOR ASSISTAN CE WITH DEPENDEN CY ORAL SUSPEND ED 01/23/2026 [id number] CARDENAS W 2024 90 [facility] NALTREXONE (EQV-REVIA) 50MG TAB TAKE ONE TABLET BY MOUTH ONCE A DAY FOR ASSISTAN CE WITH DEPENDEN CY ORAL DISCONT INUED (EDIT) 11/01/2025 [id number] 5 CARDENAS W 2024 90 [facility] NALTREXONE (EQV-REVIA) 50MG TAB TAKE ONE-HALF TABLET BY MOUTH ONCE A DAY FOR 7 DAYS THEN TAKE ONE TABLET BY MOUTH ONCE A DAY ORAL ACTIVE MAY 2023 [facility] PAPAVERINE INJ INJECT INTRAMUS CULARLY PRN INTRAM USCULA R ACTIVE EUGENIE,NO RMA E 2018 [facility] SODIUM FLUORIDE 1.1% TOOTHPASTE USE DIRECTED BY MOUTH TWICE A DAY TOOTHPAS TE (DO NOT SWALLOW) APPLY A PEA-SIZE D AMOUNT OF THE PASTE TO A TOOTHBRU SH AND BRUSH THOROUGH LY FOR TWO MINUTES, AT MORNING AND AT NIGHT; SPIT, DO NOT RINSE. DO NOT EAT, DRINK, OR RINSE FOR 30 MINUTES AFTER USE. TOOTHPAS TE (DO NOT SWALLOW) APPLY A PEA-SIZE D AMOUNT OF THE PASTE TO A TOOTHBRU SH AND BRUSH THOROUGH LY FOR TWO MINUTES, AT MORNING AND AT NIGHT; SPIT, DO NOT RINSE. DO NOT EAT, DRINK, OR RINSE FOR 30 MINUTES AFTER USE. ORAL ACTIVE 12/13/2025 [id number] MARIA INESBALJEETMara VEGA ABLE A 2024 51 [facility] SODIUM FLUORIDE 1.1% TOOTHPASTE USE DIRECTED BY MOUTH ONCE A DAY FOR DENTAL HEALTH TOOTHPAS TE (DO NOT SWALLOW) ORAL 08/09/2024 [id number] 4 Mara WILDER ABLE A 2022 51 [facility] TADALAFIL 10MG TAB TAKE ONE TABLET BY MOUTH EVERY WEEK NEEDED FOR ERECTILE DYSFUNCT ION (TAKE 30 MINUTES PRIOR TO SEXUAL ACTIVITY ) - LIMIT 18 DOSES PER 90 DAYS ORAL DISCONT INUED 12/04/2024 [id number] 4 ERVIN CASTANEDA T 2023 6 [facility] TADALAFIL 10MG TAB TAKE ONE TABLET BY MOUTH EVERY WEEK NEEDED FOR ERECTILE DYSFUNCT ION (TAKE 30 MINUTES PRIOR TO SEXUAL ACTIVITY ) - LIMIT 18 DOSES PER 90 DAYS ORAL DISCONT INUED (EDIT) 03/03/2024 [id number] 4 ERVIN CASTANEDA AMMANatanael T 2023 18 [facility] TADALAFIL 10MG TAB TAKE ONE TABLET BY MOUTH NEEDED FOR ERECTILE DYSFUNCT ION (TAKE 30 MINUTES PRIOR TO SEXUAL ACTIVITY ) - LIMIT 18 DOSES PER 90 DAYS ORAL 03/03/2024 [id number] ERVIN CASTANEDA T 2023 18 [facility] TIMOLOL MALEATE 0.5% SOLN,OPH INSTILL 1 DROP IN BOTH EYES EVERY MORNING FOR GLAUCOMA . OPHTHA LMIC ACTIVE 09/16/2025 [id number] 5 Linwood MONZON W 2024 10 [facility] TIMOLOL MALEATE 0.5% SOLN,OPH INSTILL 1 DROP IN BOTH EYES EVERY MORNING FOR GLAUCOMA . OPHTHA LMIC DISCONT INUED 12/02/2024 [id number] BENJIE MONTOYA Y 2023 10 [facility] Allergies, Adverse Reactions, Alerts Combined list of allergies from Department of [facility] and [facility] facilities. It does not include entries that were removed or entered in error. Substance Category Reaction Severity Reaction type Status Date Reported Comments Source COSOPT Propensity to adverse reactions to drug (finding) Pain in eye active 3 [facility] DORZOLAMIDE Propensity to adverse reactions to drug (finding) active 3 [facility] IODINATED CONTRAST MEDIA Propensity to adverse reactions to drug (finding) Swelling, Dyspnea, Eruption active 8 [facility] SLO-NIACIN TABLET Propensity to adverse reactions to drug (finding) Flushing, Itching active 1 [facility] TRAVATAN Z Propensity to adverse reactions to drug (finding) Itching of eye active 9 [facility] Immunizations Combined list of available immunizations from the Department of [facility] and [facility] facilities. 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 Comments Source COVID-19 (MODERNA), MRNA, LNP-S, PF, 50 MCG/0.5 ML (AGES 12+ YEARS) 2 2023 312 complet ed HISTORICA L INFORMATI ON - FROM OTHER REGISTRY, [facility] INFLUENZA, HIGH-DOSE, TRIVALENT, PF 5 2023 135 complet ed HISTORICA L INFORMATI ON - FROM OTHER [facility], [facility] COVID-19 (PFIZER), MRNA, LNP-S, PF, ALLEGRA-SUCROSE, 30 MCG/0.3 ML (AGES 12+ YEARS) 1 2023 NATALIA JJ LEFT DELTO ID [id number] 309 complet ed ADMINISTE [facility] AT [facility] ZOSTER RECOMBINANT 2 2023 NATALIA JJ RIGHT DELTO ID [id number] 187 complet ed [facility]MIN[facility] AT [facility] RECOMBINANT 1 2022 NATALIA JJ LEFT DELTO ID [id number] 187 complet ed [facility]MINISTE [facility] AT [facility] INFLUENZA, HIGH-DOSE, QUADRIVALENT 4 2022 197 complet ed HISTORICA L INFORMATI ON - FROM OTHER REGISTRY, [facility] INFLUENZA, UNSPECIFIED FORMULATION 2022 88 complet ed HISTORICA L INFORMATI ON - FROM PATIENT'S RECALL, [facility] INFLUENZA VACCINE, QUADRIVALENT, ADJUVANTED 3 2021 205 complet ed HISTORICA L INFORMATI ON - FROM OTHER REGISTRY, [facility] PNEUMOCOCCAL CONJUGATE PCV20, POLYSACCHARID E PPE437 CONJUGATE, ADJUVANT, PF 2021 216 complet ed [facility] COVID-19 (MODERNA), MRNA, LNP-S, PF, 100 MCG OR 50 MCG DOSE 3 2020 207 complet ed MOD; [id number]; 2 [facility] INFLUENZA, RECOMBINANT, QUADRIVALENT, INJECTABLE, PRESERVATIVE FREE 2020 185 complet ed HISTORICA L INFORMATI ON - FROM OTHER PROVIDER, Partner:Mario RONQUILLO.Admin istered by:[facility] [phone].( [phone] .Address: [address] [place] [address] DR.GLEN [email or web address] .[id number] Dosage: ML 0.5 [facility] COVID-19 (MODERNA), MRNA, LNP-S, PF, 100 MCG/0.5 ML DOSE 2 2020 207 complet ed MOD; [id number]; 1 [facility] COVID-19 (MODERNA), MRNA, LNP-S, PF, 100 MCG/0.5 ML DOSE 1 2020 207 complet ed MOD; [id number]; 1 [facility] INFLUENZA, INJECTABLE, QUADRIVALENT, PRESERVATIVE FREE 1 2019 150 complet ed HISTORICA L INFORMATI ON - FROM OTHER REGISTRY, [facility] N INFLUENZA, INJECTABLE, QUADRIVALENT, PRESERVATIVE FREE 2017 150 complet ed [facility] TDAP 2017 115 complet ed Left Deltoid [facility] ZOSTER LIVE 2016 121 complet ed [facility] INFLUENZA, INJECTABLE, QUADRIVALENT, PRESERVATIVE FREE 2016 150 complet ed [facility] INFLUENZA, SEASONAL, INJECTABLE, PRESERVATIVE FREE 2014 140 complet ed [facility] INFLUENZA, UNSPECIFIED FORMULATION 2013 88 complet ed [facility] INFLUENZA, UNSPECIFIED FORMULATION 2012 88 complet ed [facility] INFLUENZA, UNSPECIFIED FORMULATION 2011 88 complet ed [facility] PNEUMOCOCCAL, UNSPECIFIED FORMULATION 2010 109 complet ed [facility] INFLUENZA, UNSPECIFIED FORMULATION 2010 88 complet ed [facility] INFLUENZA, UNSPECIFIED FORMULATION 2009 88 complet ed [facility] INFLUENZA, UNSPECIFIED FORMULATION 2008 88 complet ed [facility] INFLUENZA, UNSPECIFIED FORMULATION 2007 88 complet ed [facility] TD(ADULT) UNSPECIFIED FORMULATION 2007 139 complet ed Left Deltoid [facility] TDAP 2007 115 complet ed [facility] INFLUENZA, UNSPECIFIED FORMULATION 2006 88 complet ed [facility] Results Combined list of recent chemistry, hematology and other laboratory results from Department of Defense and Veterans Affairs, ranging from 15 months to all on record, depending upon the facility. Order Name Results Value Reference Range Date Interpretation Specimen Comments Source OCCULT BLOOD FIT X1 SCREEN HEMOGLOBIN .GASTROINT ESTINAL.LO WER [PRESENCE] IN STOOL BY IMMUNOASSA Y Negative 12/04 Specimen Type: FECES No comment entered. Ordering Provider: SERAFIN CASTANEDA Report Released Date/Time: Nov 07, 2024 03:30 PM Reporting Lab: [facility] [address] [facility] [address] Performing Lab: [address] [address] [facility] COVID-19 DIAGNOST IC (FLU/RSV )(STL) INFLUENZA VIRUS A AG [PRESENCE] IN NASOPHARYN X NEG 11/18 Specimen Type: NASOPHARYNX Comment: Qualitative real-time PCR and RT-PCR to detect viral RNA. A negative result does not preclude infection with the agent(s) tested and should not be used as the sole basis for treatment or other patient management decisions. If negative, but symptoms persist, consider re-testing. Positive results do not rule out bacterial infection or co-infectio n with other viruses. All results must be combined with clinical observation s, patient history, and epidemiolog ical information for final interpretat ion. Ordering Provider: ALBERTO HOOKS Report Released Date/Time: Nov 18, 2024 08:03 PM Reporting Lab: [address] [address] Performing Lab: [address] [address] [facility] COVID19 DIAGNOST IC (FLU/RSV )(STL) INFLUENZA B NEG 11/18 Specimen Type: NASOPHARYNX Comment: Qualitative real-time PCR and RT-PCR to detect viral RNA. A negative result does not preclude infection with the agent(s) tested and should not be used as the sole basis for treatment or other patient management decisions. If negative, but symptoms persist, consider re-testing. Positive results do not rule out bacterial infection or co-infectio n with other viruses. All results must be combined with clinical observation s, patient history, and epidemiolog ical information for final interpretat ion. Ordering Provider: ALBERTO HOOKS Report Released Date/Time: Nov 18, 2024 08:03 PM Reporting Lab: [address] [address] Performing Lab: [address] [address] [facility] COVID-19 DIAGNOST IC (FLU/RSV )(STL) SARS-COV-2 (COVID-19) RNA [PRESENCE] IN RESPIRATOR Y SYSTEM SPECIMEN BY OLIVIER WITH PROBE DETECTION NEG 11/18 Specimen Type: NASOPHARYNX Comment: Qualitative real-time PCR and RT-PCR to detect viral RNA. A negative result does not preclude infection with the agent(s) tested and should not be used as the sole basis for treatment or other patient management decisions. If negative, but symptoms persist, consider re-testing. Positive results do not rule out bacterial infection or co-infectio n with other viruses. All results must be combined with clinical observation s, patient history, and epidemiolog ical information for final interpretat ion. Ordering Provider: ALBERTO HOOKS Report Released Date/Time: Nov 18, 2024 08:03 PM Reporting Lab: [address] [address] Performing Lab: [address] [address] [facility] COVID-19 DIAGNOST IC (FLU/RSV )([facility]) RESPIRATOR Y SYNCYTIAL VIRUS RNA [PRESENCE] IN RESPIRATOR Y SYSTEM SPECIMEN BY OLIVIER WITH PROBE DETECTION Negative 11/18 Specimen Type: NASOPHARYNX Comment: Qualitative real-time PCR and RT-PCR to detect viral RNA. A negative result does not preclude infection with the agent(s) tested and should not be used as the sole basis for treatment or other patient management decisions. If negative, but symptoms persist, consider re-testing. Positive results do not rule out bacterial infection or co-infectio n with other viruses. All results must be combined with clinical observation s, patient history, and epidemiolog ical information for final interpretat ion. Ordering Provider: ALBERTO HOOKS Report Released Date/Time: Nov 18, 2024 08:03 PM Reporting Lab: [address] [address] Performing Lab: [address] [address] [facility] PROST. SPECIFIC AG.(PB-S TL) PROSTATE SPECIFIC AG [MASS/VOLU ME] IN SERUM OR PLASMA <0.100ng /mL 0 - 4 07/05 Specimen Type: SERUM Comment: The listed sex of this patient may not be a typical indication for this test. Therefore, reference ranges or interpretiv e criteria listed may not be valid. Clinical correlation suggested. Ordering Provider: SERAFIN CASTANEDA Report Released Date/Time: Mar 03, 2024 10:21 AM Reporting Lab: [address] [address] Performing Lab: [address] [phone] [place] [address] HGA1C HEMOGLOBIN A1C/HEMOGL OBIN.TOTAL IN BLOOD 5.7 4.0 - 6.0 07/05 Specimen Type: BLOOD No comment entered. Ordering Provider: SERAFIN CASTANEDA Report Released Date/Time: Mar 03, 2024 10:21 AM Reporting Lab: [address] [address] Performing Lab: [address] [address] [facility] VITAMIN D, 25-HYDRO XY 25-HYDROXY VITAMIN D3 [MASS/VOLU ME] IN SERUM OR PLASMA 23.8 ng/mL 30 - 96 07/05 L Specimen Type: SERUM No comment entered. Ordering Provider: SERAFIN CASTANEDA Report Released Date/Time: Mar 03, 2024 10:21 AM Reporting Lab: [address] [address] Performing Lab: [address] [address] [facility] LIPID PANEL (STL) CHOLESTERO L [MASS/VOLU ME] IN SERUM OR PLASMA 220 mg/dL 0 - 200 07/05 H Specimen Type: PLASMA Comment: No hemolysis noted. Ordering Provider: SERAFIN CASTANEDA Report Released Date/Time: Mar 03, 2024 10:21 AM Reporting Lab: [address] [address] Performing Lab: [address] [place] [address] [facility] LIPID PANEL (STL) TRIGLYCERI DE [MASS/VOLU ME] IN SERUM OR PLASMA 159 mg/dL 0 - 150 07/05 H Specimen Type: PLASMA Comment: No hemolysis noted. Ordering Provider: SERAFIN CASTANEDA Report Released Date/Time: Mar 03, 2024 10:21 AM Reporting Lab: [place] [address] [facility] [address] Performing Lab: [address] [address] [facility] LIPID PANEL (STL) CHOLESTERO L IN LDL [MASS/VOLU ME] IN SERUM OR PLASMA BY CALCULAPAULIEO N 123 mg/dL 07/05 Specimen Type: PLASMA Comment: No hemolysis noted. Ordering Provider: SERAFIN CASTANEDA Report Released Date/Time: Mar 03, 2024 10:21 AM Reporting Lab: [address] [address] Performing Lab: [address] [address] [facility] LIPID PANEL (STL) CHOLESTERO L IN HDL [MASS/VOLU ME] IN SERUM OR PLASMA 65 mg/dL 40 07/05 Specimen Type: PLASMA Comment: No hemolysis noted. Ordering Provider: SERAFIN CASTANEDA Report Released Date/Time: Mar 03, 2024 10:21 AM Reporting Lab: [address] [address] Performing Lab: [address] [address] [facility] COMPREHE NSIVE METABOLI C PANEL CREATININE [MASS/VOLU ME] IN SERUM OR PLASMA 1.04 mg/dL 0.7 - 1.3 07/05 Specimen Type: PLASMA Comment: No hemolysis noted. Ordering Provider: BRADEN DUNBAR Report Released Date/Time: Jun 20, 2024 01:13 PM Reporting Lab: [facility] [address] [facility] [address] Performing Lab: [facility] [address] [facility] [address] [facility] COMPREHE NSIVE METABOLI C PANEL UREA NITROGEN [MASS/VOLU ME] IN SERUM OR PLASMA 10.4 mg/dL 9.0 - 25.0 07/05 Specimen Type: PLASMA Comment: No hemolysis noted. Ordering Provider: BRADEN DUNBAR Report Released Date/Time: Jun 20, 2024 01:13 PM Reporting Lab: [place] [address] [facility] [address] Performing Lab: [address] [address] [facility] COMPREHE NSIVE METABOLI C PANEL GLUCOSE [MASS/VOLU ME] IN SERUM OR PLASMA 98 mg/dL 72 - 99 07/05 Specimen Type: PLASMA Comment: No hemolysis noted. Ordering Provider: BRADEN DUNBAR Report Released Date/Time: Jun 20, 2024 01:13 PM Reporting Lab: [place] [address] [facility] [address] Performing Lab: [address] [address] [facility] COMPREHE NSIVE METABOLI C PANEL SODIUM [MOLES/VOL UME] IN SERUM OR PLASMA 139 meq/L 136 - 145 07/05 Specimen Type: PLASMA Comment: No hemolysis noted. Ordering Provider: BRADEN DUNBAR Report Released Date/Time: Jun 20, 2024 01:13 PM Reporting Lab: [address] [address] Performing Lab: [address] [address] [facility] COMPREHE NSIVE METABOLI C PANEL POTASSIUM [MOLES/VOL UME] IN SERUM OR PLASMA 4.1 meq/L 3.5 - 5 07/05 Specimen Type: PLASMA Comment: No hemolysis noted. Ordering Provider: BRADEN DUNBAR Report Released Date/Time: Jun 20, 2024 01:13 PM Reporting Lab: [facility] [address] [facility] [place] [address] Performing Lab: [facility] [address] [facility] [address] [facility] COMPREHE NSIVE METABOLI C PANEL CHLORIDE [MOLES/VOL UME] IN SERUM OR PLASMA 108 meq/L 98 - 107 07/05 H Specimen Type: PLASMA Comment: No hemolysis noted. Ordering Provider: BRADEN DUNBAR Report Released Date/Time: Jun 20, 2024 01:13 PM Reporting Lab: [place] [address] [facility] [address] Performing Lab: [facility] [address] [facility] [address] [facility] COMPREHE NSIVE METABOLI C PANEL CARBON DIOXIDE, TOTAL [MOLES/VOL UME] IN SERUM OR PLASMA 21 meq/L 22 - 31 07/05 L Specimen Type: PLASMA Comment: No hemolysis noted. Ordering Provider: BRADEN DUNBAR Report Released Date/Time: Jun 20, 2024 01:13 PM Reporting Lab: [facility] [address] [facility] [address] Performing Lab: [facility] [address] [facility] [address] [facility] COMPREHE NSIVE METABOLI C PANEL CALCIUM [MASS/VOLU ME] IN SERUM OR PLASMA 9.8 mg/dL 8.4 - 10.4 07/05 Specimen Type: PLASMA Comment: No hemolysis noted. Ordering Provider: BRADEN DUNBAR Report Released Date/Time: Jun 20, 2024 01:13 PM Reporting Lab: [facility] [address] [facility] [address] Performing Lab: [facility] [address] [facility] [address] [facility] COMPREHE NSIVE METABOLI C PANEL PROTEIN [MASS/VOLU ME] IN SERUM OR PLASMA 7.4 g/dL 6 - 8.6 07/05 Specimen Type: PLASMA Comment: No hemolysis noted. Ordering Provider: BRADEN DUNBAR Report Released Date/Time: Jun 20, 2024 01:13 PM Reporting Lab: [facility] [address] [facility] [address] Performing Lab: [facility] [address] [facility] [address] [facility] COMPREHE NSIVE METABOLI C PANEL ALBUMIN [MASS/VOLU ME] IN SERUM OR PLASMA 4.2 g/dL 3.4 - 5 07/05 Specimen Type: PLASMA Comment: No hemolysis noted. Ordering Provider: BRADEN DUNBAR Report Released Date/Time: Jun 20, 2024 01:13 PM Reporting Lab: [address] [address] Performing Lab: [place] [address] [facility] [address] [facility] COMPREHE NSIVE METABOLI C PANEL BILIRUBIN. TOTAL [MASS/VOLU ME] IN SERUM OR PLASMA 0.2 mg/dL 0.2 - 1.2 07/05 Specimen Type: PLASMA Comment: No hemolysis noted. Ordering Provider: BRADEN DUNBAR Report Released Date/Time: Jun 20, 2024 01:13 PM Reporting Lab: [address] [address] Performing Lab: [facility] [address] [facility] [address] [facility] COMPREHE NSIVE METABOLI C PANEL ALKALINE PHOSPHATAS E [ENZYMATIC ACTIVITY/V OLUME] IN SERUM OR PLASMA 119 U/L 40 - 150 07/05 Specimen Type: PLASMA Comment: No hemolysis noted. Ordering Provider: BRADEN DUNBAR Report Released Date/Time: Jun 20, 2024 01:13 PM Reporting Lab: [facility] [address] [facility] [address] Performing Lab: [facility] [address] [place] [address] [facility] COMPREHE NSIVE METABOLI C PANEL ASPARTATE AMINOTRANS FERASE [ENZYMATIC ACTIVITY/V OLUME] IN SERUM OR PLASMA 20 U/L 5 - 34 07/05 Specimen Type: PLASMA Comment: No hemolysis noted. Ordering Provider: BRADEN DUNBAR Report Released Date/Time: Jun 20, 2024 01:13 PM Reporting Lab: [place] [address] [facility] [address] Performing Lab: [place] [address] [facility] [address] [facility] COMPREHE NSIVE METABOLI C PANEL ALANINE AMINOTRANS FERASE [ENZYMATIC ACTIVITY/V OLUME] IN SERUM OR PLASMA 25 U/L 8 - 40 07/05 Specimen Type: PLASMA Comment: No hemolysis noted. Ordering Provider: BRADEN DUNBAR Report Released Date/Time: Jun 20, 2024 01:13 PM Reporting Lab: [place] [address] [facility] [address] Performing Lab: [place] [address] [facility] [address] [facility] COMPREHE NSIVE METABOLI C PANEL GLOMERULAR FILTRATION RATE/1.73 SQ M.PREDICTE D [VOLUME RATE/AREA] IN SERUM, PLASMA OR BLOOD BY CREATININE -BASED FORMULA (CKD-EPI 2020) 78.2 60 07/05 Specimen Type: PLASMA Comment: No hemolysis noted. Ordering Provider: BRADEN DUNBAR Report Released Date/Time: Jun 20, 2024 01:13 PM Reporting Lab: [place] [address] [facility] [address] Performing Lab: [place] [address] [facility] [address] [facility] COMPREHE NSIVE METABOLI C PANEL CREATININE [MASS/VOLU ME] IN SERUM OR PLASMA 0.91 mg/dL 0.7 - 1.3 05/18 Specimen Type: PLASMA Comment: No hemolysis noted. Ordering Provider: BRADEN DNUBAR Report Released Date/Time: May 18, 2024 01:32 PM Reporting Lab: [facility] [address] [facility] [address] Performing Lab: [place] [address] [facility] [address] [facility] COMPREHE NSIVE METABOLI C PANEL UREA NITROGEN [MASS/VOLU ME] IN SERUM OR PLASMA 16.8 mg/dL 9.0 - 25.0 05/18 Specimen Type: PLASMA Comment: No hemolysis noted. Ordering Provider: BRADEN DUNBAR Report Released Date/Time: May 18, 2024 01:32 PM Reporting Lab: [address] [address] Performing Lab: [address] [address] [facility] COMPREHE NSIVE METABOLI C PANEL GLUCOSE [MASS/VOLU ME] IN SERUM OR PLASMA 104 mg/dL 72 - 99 05/18 H Specimen Type: PLASMA Comment: No hemolysis noted. Ordering Provider: BRADEN DUNBAR Report Released Date/Time: May 18, 2024 01:32 PM Reporting Lab: [address] [address] Performing Lab: [address] [address] [facility] COMPREHE NSIVE METABOLI C PANEL SODIUM [MOLES/VOL UME] IN SERUM OR PLASMA 142 meq/L 136 - 145 05/18 Specimen Type: PLASMA Comment: No hemolysis noted. Ordering Provider: BRADEN DUNBAR Report Released Date/Time: May 18, 2024 01:32 PM Reporting Lab: [address] [address] Performing Lab: [address] [address] [facility] COMPREHE NSIVE METABOLI C PANEL POTASSIUM [MOLES/VOL UME] IN SERUM OR PLASMA 3.9 meq/L 3.5 - 5 05/18 Specimen Type: PLASMA Comment: No hemolysis noted. Ordering Provider: BRADEN DUNBAR Report Released Date/Time: May 18, 2024 01:32 PM Reporting Lab: [facility] [address] [facility] [address] Performing Lab: [facility] [address] [facility] [address] [facility] COMPREHE NSIVE METABOLI C PANEL CHLORIDE [MOLES/VOL UME] IN SERUM OR PLASMA 110 meq/L 98 - 107 05/18 H Specimen Type: PLASMA Comment: No hemolysis noted. Ordering Provider: BRADEN DUNBAR Report Released Date/Time: May 18, 2024 01:32 PM Reporting Lab: [facility] [address] [place] [address] Performing Lab: [facility] [address] [place] [address] [facility] COMPREHE NSIVE METABOLI C PANEL CARBON DIOXIDE, TOTAL [MOLES/VOL UME] IN SERUM OR PLASMA 21 meq/L 22 - 31 05/18 L Specimen Type: PLASMA Comment: No hemolysis noted. Ordering Provider: BRADEN DUNBAR Report Released Date/Time: May 18, 2024 01:32 PM Reporting Lab: [facility] [address] [place] [address] Performing Lab: [facility] [address] [place] [address] [facility] COMPREHE NSIVE METABOLI C PANEL CALCIUM [MASS/VOLU ME] IN SERUM OR PLASMA 10.1 mg/dL 8.4 - 10.4 05/18 Specimen Type: PLASMA Comment: No hemolysis noted. Ordering Provider: BRADEN DUNBAR Report Released Date/Time: May 18, 2024 01:32 PM Reporting Lab: [facility] [address] [place] [address] Performing Lab: [facility] [address] [place] [address] [facility] COMPREHE NSIVE METABOLI C PANEL PROTEIN [MASS/VOLU ME] IN SERUM OR PLASMA 7.6 g/dL 6 - 8.6 05/18 Specimen Type: PLASMA Comment: No hemolysis noted. Ordering Provider: BRADEN DUNBAR Report Released Date/Time: May 18, 2024 01:32 PM Reporting Lab: [place] [address] [facility] [address] Performing Lab: [place] [address] [facility] [address] [facility] COMPREHE NSIVE METABOLI C PANEL ALBUMIN [MASS/VOLU ME] IN SERUM OR PLASMA 4.4 g/dL 3.4 - 5 05/18 Specimen Type: PLASMA Comment: No hemolysis noted. Ordering Provider: BRADEN DUNBAR Report Released Date/Time: May 18, 2024 01:32 PM Reporting Lab: [place] [address] [facility] [address] Performing Lab: [place] [address] [facility] [address] [facility] COMPREHE NSIVE METABOLI C PANEL BILIRUBIN. TOTAL [MASS/VOLU ME] IN SERUM OR PLASMA 0.3 mg/dL 0.2 - 1.2 05/18 Specimen Type: PLASMA Comment: No hemolysis noted. Ordering Provider: BRADEN DUNBAR Report Released Date/Time: May 18, 2024 01:32 PM Reporting Lab: [place] [address] [facility] [address] Performing Lab: [place] [address] [facility] [address] [facility] COMPREHE NSIVE METABOLI C PANEL ALKALINE PHOSPHATAS E [ENZYMATIC ACTIVITY/V OLUME] IN SERUM OR PLASMA 98 U/L 40 - 150 05/18 Specimen Type: PLASMA Comment: No hemolysis noted. Ordering Provider: BRADEN DUNBAR Report Released Date/Time: May 18, 2024 01:32 PM Reporting Lab: [place] [address] [facility] [address] Performing Lab: [facility] [address] [facility] [address] [facility] COMPREHE NSIVE METABOLI C PANEL ASPARTATE AMINOTRANS FERASE [ENZYMATIC ACTIVITY/V OLUME] IN SERUM OR PLASMA 25 U/L 5 - 34 05/18 Specimen Type: PLASMA Comment: No hemolysis noted. Ordering Provider: BRADEN DUNBAR Report Released Date/Time: May 18, 2024 01:32 PM Reporting Lab: [place] [address] [facility] [address] Performing Lab: [place] [address] [facility] [address] [facility] COMPREHE NSIVE METABOLI C PANEL ALANINE AMINOTRANS FERASE [ENZYMATIC ACTIVITY/V OLUME] IN SERUM OR PLASMA 21 U/L 8 - 40 05/18 Specimen Type: PLASMA Comment: No hemolysis noted. Ordering Provider: BRADEN DUNBAR Report Released Date/Time: May 18, 2024 01:32 PM Reporting Lab: [place] [address] [facility] [address] Performing Lab: [place] [address] [facility] [address] [place] [address] COMPREHE NSIVE METABOLI C PANEL GLOMERULAR FILTRATION RATE/1.73 SQ M.PREDICTE D [VOLUME RATE/AREA] IN SERUM, PLASMA OR BLOOD BY CREATININE -BASED FORMULA (CKD-EPI 2020) 92.4 60 05/18 Specimen Type: PLASMA Comment: No hemolysis noted. Ordering Provider: BRADEN DUNBAR Report Released Date/Time: May 18, 2024 01:32 PM Reporting Lab: [address] [address] Performing Lab: [address] [address] [facility] VITAMIN D, 25-HYDRO XY 25-HYDROXY VITAMIN D3 [MASS/VOLU ME] IN SERUM OR PLASMA 35.4 ng/mL 30 - 96 11/22 Specimen Type: SERUM No comment entered. Ordering Provider: SERAFIN CASTANEDA Report Released Date/Time: Nov 19, 2023 02:06 PM Reporting Lab: [facility] [address] [facility] [address] Performing Lab: [facility] [address] [place] [address] [facility] LIPID PANEL (STL) CHOLESTERO L [MASS/VOLU ME] IN SERUM OR PLASMA 217 mg/dL 0 - 200 11/22 H Specimen Type: PLASMA Comment: K result may show a positive bias due to hemolysis. Specimen slightly hemolyzed. Ordering Provider: SERAFIN CASTANEDA Report Released Date/Time: Nov 19, 2023 02:06 PM Reporting Lab: [facility] [address] [facility] [address] Performing Lab: [address] [address] [facility] LIPID PANEL (STL) TRIGLYCERI DE [MASS/VOLU ME] IN SERUM OR PLASMA 131 mg/dL 0 - 150 11/22 Specimen Type: PLASMA Comment: K result may show a positive bias due to hemolysis. Specimen slightly hemolyzed. Ordering Provider: SERAFIN CASTANEDA Report Released Date/Time: Nov 19, 2023 02:06 PM Reporting Lab: [facility] [address] [facility] [address] Performing Lab: [facility] [address] [place] [address] [facility] LIPID PANEL (STL) CHOLESTERO L IN LDL [MASS/VOLU ME] IN SERUM OR PLASMA BY CALCULATIO N 132 mg/dL 11/22 Specimen Type: PLASMA Comment: K result may show a positive bias due to hemolysis. Specimen slightly hemolyzed. Ordering Provider: SERAFIN CASTANEDA Report Released Date/Time: Nov 19, 2023 02:06 PM Reporting Lab: [facility] [address] [facility] [address] Performing Lab: [facility] [address] [facility] [address] [facility] LIPID PANEL (STL) CHOLESTERO L IN HDL [MASS/VOLU ME] IN SERUM OR PLASMA 59 mg/dL 40 11/22 Specimen Type: PLASMA Comment: K result may show a positive bias due to hemolysis. Specimen slightly hemolyzed. Ordering Provider: SERAFIN CASTANEDA Report Released Date/Time: Nov 19, 2023 02:06 PM Reporting Lab: [facility] [address] [facility] [address] Performing Lab: [place] [address] [facility] [address] [facility] Vital Signs Combined list of inpatient and outpatient Vital Signs from Department of Defense and Veterans Affairs, ranging from 12 months to all on record, depending upon the facility. Vital Sign Value Date Comments Source SYSTOLIC BLOOD PRESSURE 122 01/23/20 25 13:23:08 [facility] DIASTOLIC BLOOD PRESSURE 79 025 13:23:08 [facility] PULSE OXIMETRY 96 01/22/2025 13:23:08 [facility] WEIGHT 211.8 01/22/2025 13:23:08 [facility] BMI 29 kg/m2 01/22/2025 13:23:08 [facility] TEMPERATURE 98.7 01/22/2025 13:23:08 [facility] PULSE 79 01/22/2025 13:23:08 [facility] RESPIRATION 20 01/22/2025 13:23:08 [facility] SYSTOLIC BLOOD PRESSURE 156 11/19/19 25 19:39:59 [facility] DIASTOLIC BLOOD PRESSURE 89 025 19:39:59 [facility] PULSE OXIMETRY 96 11/18/2024 19:39:59 [facility] TEMPERATURE 98.5 11/18/2024 19:39:59 [facility] PULSE 64 11/18/2024 19:39:59 [facility] RESPIRATION 16 11/18/2024 19:39:59 [facility] SYSTOLIC BLOOD PRESSURE 131 11/08/19 25 14:56:33 [facility] DIASTOLIC BLOOD PRESSURE 87 025 14:56:33 [facility] PULSE OXIMETRY 96 11/07/2024 14:56:33 [facility] WEIGHT 205.4 11/07/2024 14:56:33 [facility] BMI 28 kg/m2 11/07/2024 14:56:33 [facility] PAIN 3 11/07/2024 14:56:33 [facility] TEMPERATURE 97.9 11/07/2024 14:56:33 [facility] PULSE 84 11/07/2024 14:56:33 [facility] RESPIRATION 3 11/07/2024 14:56:33 [facility] SYSTOLIC BLOOD PRESSURE 147 11/01/19 13:37:44 [facility] DIASTOLIC BLOOD PRESSURE 86 025 13:37:44 [facility] PULSE OXIMETRY 98 10/31/2024 13:37:44 [facility] WEIGHT 207.9 10/31/2024 13:37:44 [facility] BMI 28 kg/m2 10/31/2024 13:37:44 [facility] TEMPERATURE 98.4 10/31/2024 13:37:44 [facility] PULSE 63 10/31/2024 13:37:44 [facility] RESPIRATION 20 10/31/2024 13:37:44 [facility] SYSTOLIC BLOOD PRESSURE 130 07/24/20 24 13:06:52 [facility] DIASTOLIC BLOOD PRESSURE 82 024 13:06:52 [facility] PULSE OXIMETRY 97 07/24/2024 13:06:52 [facility] WEIGHT 203.4 07/24/2024 13:06:52 [facility] BMI 28 kg/m2 07/24/2024 13:06:52 [facility] TEMPERATURE 96.2 07/24/2024 13:06:52 [facility] PULSE 65 07/24/2024 13:06:52 [facility] RESPIRATION 18 07/24/2024 13:06:52 [facility] Encounters Combined list of: 1) Encounters from Department of [facility] Affairs facilities going backup to the last 18 months, not all [place] inpatient encounters are included; 2) Encounters from the Department of [facility] facilities going backup to 280 months. Location Location Details Encounter Type Encounter Number Reason For Visit Attending Provider ADM Date DC Date Status Disposition Source [facility] DENTAL PANORAMIC IMAGE [id number] Diagnos is: ICD-10- CM Z01.21 Encount er for dental exam and cleanin g SA RAMBO Goodrich 08/09 [facility] Outpatient Encounter [id number] Diagnos is: ICD-10- CM F33.0 Major depress art disorde r, recurre nt, mild O'FREDDY PAEZ R RADHA 08/17 [facility] Outpatient Encounter [id number] 08/19 [facility] Outpatient Encounter [id number] 08/24 [facility] OFF/OP CNSLTJ NEW/EST LOW 30 [id number] Diagnos is: ICD-10- CM Z12.11 Encount er for screeni ng for maligna nt neoplas m of colon Ellie MCGHEE 08/26 [facility] SELF CARE MNGMENT TRAINING [id number] Diagnos is: ICD-10- CM M54.50 Low back pain, unspeci fied NAYELI FENG A 08/27 [facility] THERAPEUTI C EXERCISES [id number] Diagnos is: ICD-10- CM M54.50 Low back pain, unspeci fied ALLYSON PRAJAPATIEliza EY 09/14 [facility] THERAPEUTI C EXERCISES [id number] Diagnos is: ICD-10- CM M54.50 Low back pain, unspeci fied ALLYSON PRAJAPATIEliza EY 09/28 [facility] Outpatient Encounter [id number] 10/06 [facility] OFFICE O/P EST MOD 30 MIN [id number] Diagnos is: ICD-10- CM I10 Essenti al (primar y) hyperte ROSE Willoughby MMAD T 10/06 [facility] Outpatient Encounter [id number] 10/07 [facility] THERAPEUTI C ACTIVITIES [id number] Diagnos is: ICD-10- CM M54.50 Low back pain, unspeci fied [place]YS[place] PRAJAPATIEliza EY 10/12 [facility] Outpatient Encounter [id number] 11/02 [facility] OTHER DRUGS/MEDI CAMENTS [id number] Diagnos is: ICD-10- CM K05.322 Chronic periodo ntitis, general ized, moderat e O CHOI,S TORMY 11/09 [facility] Outpatient Encounter [id number] ROSE CASTANEDA MMANatanael T 11/18 [facility] OFFICE O/P EST LOW 20 MIN 01564-9.65 [id number] Diagnos is: ICD-10- CM F33.0 Major depress art disorde r, recurre nt, mild O'JEANNINE, FREDDY R RADHA 11/21 [facility] OFFICE O/P EST MOD 30 MIN 32722-6.65 [id number] Diagnos is: ICD-10- CM I10 Essenti al (primar y) hyperte nsROSE Almanza MMANatanael T 11/28 [facility] INTRM OPH EXAM EST PATIENT [id number] [id number] Diagnos is: ICD-10- CM H40.112 1 Primary open-an gle glaucom a, left eye, mild stage LINDSAYKALLIE ICA Y 12/01 [facility] CMPTR OPHTH IMG OPTIC NERVE [id number] [id number] Diagnos is: ICD-10- CM H40.111 2 Primary open-an gle glaucom a, right eye, moderat e stage MONIE,A YUVAL S 12/01 [facility] REMOVABLE PROSTHODON TIC PROC 62310-8.65 [id number] Diagnos is: ICD-10- CM K02.62 Dental caries on smooth surface penetra ting into dentin MARIA INESTESILVIA,SA BLE A 01/11 [facility] LIMIT ORAL EVAL PROBLM FOCUS 13327-8.65 [id number] 4 Diagnos is: ICD-10- CM K02.62 Dental caries on smooth surface penetra ting into dentin SA MEÑO BLE A 01/25 [facility] MANDIBULAR PART DENTURE FLEX 03982-0.65 [id number] Diagnos is: ICD-10- CM K08.499 Partial loss of teeth due to oth cause, unspeci fied class SA MEÑO BLE A 02/21 [facility] Outpatient Encounter [id number] [id number] 02/25 [facility] OFFICE O/P EST MOD 30 MIN 83374-6.65 [id number] Diagnos is: ICD-10- CM I10 Essenti al (primar y) hyperte nsion LEONEL,MOHA MMAD T 03/03 [facility] Outpatient Encounter [id number] [id number] 03/21 [facility] Outpatient Encounter 72499-8.65 [id number] DEFRANCE,A NGELA M 04/10 [facility] EXTENDED VISUAL FIELD XM 93190-6.65 [id number] Diagnos is: ICD-10- CM H40.112 1 Primary open-an gle glaucom a, left eye, mild stage EZRA,BELTRAN I M 04/14 [facility] OFFICE O/P EST LOW 20 MIN 21761-6.65 [id number] Diagnos is: ICD-10- CM H40.113 1 Primary open-an gle glaucom a, bilater al, mild stage [facility] SAMMY 04/14 [facility] PRO PHONE CALL 21-30 MIN 33426-8.65 [id number] Diagnos is: ICD-10- CM F33.0 Major depress art disorde r, recurre nt, mild KEILMario EWING RYSTAL 04/28 [facility] Outpatient Encounter [id number] 05/13 [facility] OFF/OP EST DECEMBER X REQ PHY/QHP 79847-2.65 [id number] Diagnos is: ICD-10- CM F33.0 Major depress art disorde r, recurre nt, mild Mario CARSON RYSTAL 05/18 [facility] OFFICE O/P EST MOD 30 MIN [id number]. [id number] Diagnos is: ICD-10- CM F10.90 Alcohol use, unspeci fied, uncompl icated STEPHANIE DUNBAR 05/18 [facility] Outpatient Encounter [id number] [id number] 05/18 [facility] POST 1 [facility] RESINBASED CMPST 05121-9.65 [id number] Diagnos is: ICD-10- CM K02.53 Dental caries on pit and fissure surface penetra t into pulp SA MEÑO BLE A 05/19 [facility] Outpatient Encounter [id number] 05/22 [facility] Outpatient Encounter [id number] [id number] 05/26 [facility] OFFICE O/P EST LOW 20 MIN 26111-5.65 [id number] Diagnos is: ICD-10- CM F10.90 Alcohol use, unspeci fied, uncompl icated STEPHANIE DUNBAR 06/20 [facility] Outpatient Encounter [id number] [id number] VEDA HORTON L 06/29 [facility] Outpatient Encounter 33226-3.65 [id number] VEDA HORTON L 07/07 [facility] OFFICE O/P EST MOD 30 MIN 59068-5.65 [id number] Diagnos is: ICD-10- CM I10 Essenti al (primar y) hyperte ROSE Willoughby MMAD T 07/10 [facility] Outpatient Encounter [id number] [id number] 07/24 [facility] OFFICE O/P EST MOD 30 MIN 40362-1.65 [id number] Diagnos is: ICD-10- CM N52.9 Male erectil e dysfunc tion, unspeci fied DIANA SMITH 07/24 [facility] OFFICE O/P EST LOW 20 MIN [id number] [id number] 6 Diagnos is: ICD-10- CM F33.0 Major depress art disorde r, recurre nt, mild STEPHANIE DUNBAR 08/01 [facility] OFFICE O/P EST MOD 30 MIN 65709-3.65 [id number] Shona SANDOVAL 09/15 [facility] OFFICE O/P EST MOD 30 MIN [id number] [id number] 6 Diagnos is: ICD-10- CM H40.113 1 Primary open-an gle glaucom a, bilater al, mild stage SHEYBShona GALLARDO RSHAM 09/15 [facility] EXTENDED VISUAL FIELD XM 91212-5.65 [id number] Diagnos is: ICD-10- CM H40.113 1 Primary open-an gle glaucom a, bilater al, mild stage MONIE,A YUVAL S 09/15 [facility] OFFICE O/P EST MOD 30 MIN 45240-9.65 [id number] 6 Diagnos is: ICD-10- CM F33.0 Major depress art disorde r, recurre nt, mild BROWN,DERE K W 10/31 [facility] Outpatient Encounter [id number] [id number] VEDA HORTON EE L 11/06 [facility] Outpatient Encounter [id number] [id number] 11/07 [facility] Outpatient Encounter 97119-8.65 [id number] 11/07 [facility] OFFICE O/P EST MOD 30 MIN 09651-3.65 [id number] Diagnos is: ICD-10- CM I10 Essenti al (primar y) hyperte ROSE Wilolughby MMAD T 11/07 [facility] OFFICE O/P EST MOD 30 MIN [id number] [id number] 6 Diagnos is: ICD-10- CM H40.121 2 Low-ten guillermo glaucom a, right eye, moderat e stage MANASA,Shona MEAY V 11/09 [facility] [place]TRZD [place] [address]-5.65 [id number] Diagnos is: ICD-10- CM H40.111 2 Primary open-an gle glaucom a, right eye, moderat e stage RUBY MUNGUIA I M 11/09 [facility] Outpatient Encounter [id number] [id number] VU,ALBERTO D 11/18 [facility] EMERGENCY DEPT VISIT LOW MDM 64881-3.65 [id number] 5 Diagnos is: ICD-10- CM J20.9 Acute bronchi tis, unspeci fied VU,ALBERTO D 11/18 [facility] Outpatient Encounter [id number] [id number] KARUNA CORRALES FRANCISCO J 11/18 [facility] Outpatient Encounter [id number] [id number] VU,ALBERTO D 11/18 [facility] UNSPECIFIE D PERIODONTA L PROC 78643-8 [id number] Diagnos is: ICD-10- CM K03.6 Deposit s [accret ions] on JOSE Fiore N 12/12 [facility] Outpatient Encounter [id number] [id number] ROSE CASTANEDAD T 12/12 [facility] EXTENDED VISUAL FIELD XM 37822-9.65 [id number] Diagnos is: ICD-10- CM H40.121 2 Low-ten guillermo glaucom a, right eye, moderat e stage RUBY MUNGUIA 12/21 [facility] Outpatient Encounter [id number] [id number] 12/21 [facility] OFFICE O/P EST MOD 30 MIN 06478-3.65 [id number] Diagnos is: ICD-10- CM H40.113 2 Primary open-an gle glaucom a, bilater al, moderat e stage Shona OGELSunshine V 12/21 [facility] OFFICE O/P EST LOW 20 MIN 56701-3.65 [id number] Diagnos is: ICD-10- CM F33.0 Major depress art disorde r, recurre nt, mild BROWN,DERE K W 01/22 [facility] Social History Combined list of available smoking, tobacco, and other social history from Department of Defense and Veterans Affairs facilities. Social History Type Response Date Comment [facility] e Tobacco smoking status MDIS VA-TOBACCO QUIT 15 YRS OR MORE 05/18/2024 [facility] History of tobacco use VA-TOBACCO FORMER USER 05/18/2024 [facility] History of tobacco use VA-TOBACCO FORMER USER 05/26/2023 [facility] History of tobacco use VA-TOBACCO FORMER USER 08/21/2021 [facility] History of tobacco use LIFETIME NON-USER OF TOBACCO 12/30/2018 [facility] History of tobacco use LIFETIME NON-USER OF TOBACCO 05/03/2018 [facility] History of tobacco use QUIT TOBACCO >7 YEARS AGO 12/31/2017 [facility] History of tobacco use QUIT TOBACCO >7 YEARS AGO 08/27/2017 [facility] History of tobacco use QUIT TOBACCO >7 YEARS AGO 08/24/2017 [facility] History of tobacco use QUIT TOBACCO >7 YEARS AGO 03/23/2017 [facility] History of tobacco use LIFETIME NON-USER OF TOBACCO 05/13/2016 [facility] History of tobacco use QUIT TOBACCO >7 YEARS AGO 03/12/2015 [facility] History of tobacco use LIFETIME NON-USER OF TOBACCO 01/12/2014 [facility] History of tobacco use QUIT TOBACCO >7 YEARS AGO 03/02/2013 [facility] History of tobacco use QUIT TOBACCO >7 YEARS AGO 07/26/2008 [facility] Plan of Care List of future care activities from [facility] facilities. Additional future care activities may be listed in the Assessment and Plan section. Date/Time Care Activity Care Activity Detail Facili ty 02/12/2025 AMBULATORY - MEDICINE AMBULATORY - MEDICI [facility] Advance Directives List of completed, amended, or rescinded Advance Directives on record at [facility] facilities. An actual copy of the Directive is not included. Date Advance Directive Provider Source 04/02/2016 ADVANCE DIRECTIVE DISCUSSION UDAY BREEN [facility]
--- OUTSIDE RECORDS SUMMARY | 2025-02-07 09:49 | XMS_ITS | Clinical Summary ---
Author Organization [facility] Address [address] [place] [address] Care Team Providers Care Supervisor Brake Repair Name Role Phone Unavailable Primary Care Provider Unavailabl e Allergies Active Allergy Reactions Criticality Noted Date Comments Iodinated Contrast Media Hives High 08/05/2020 Medications losartan (COZAAR) 50 mg tablet Take 50 mg by mouth daily. Active simvastatin (ZOCOR) 20 mg tablet Take 20 mg by mouth daily with supper. Active ketoconazole (NIZORAL) 2 % Cream Apply to affected area daily. 30 Gram 08/06/2020 Active Active Problems No known active problems Social History Tobacco Use Types Packs/Day Years Used Date Smoking Tobacco: Never Smokeless Tobacco: Never Sex and Gender Information Value Date Recorded Sex Assigned at Not on file Legal Sex Male 9:55 AM [employer] Gender Identity Not on file Sexual Orientation Not on file Last Filed Vital Signs Vital Sign Reading Time Taken Comments Blood Pressure 134/78 08/05/2020 2:49 PM [employer] Pulse 63 08/05/2020 2:49 PM [employer] Temperature 36.9 C (98.5 F) 08/05/2020 2:49 PM [employer] Respiratory Rate 16 08/05/2020 2:49 PM [employer] Oxygen Saturation 96% 08/05/2020 2:49 PM [employer] Inhaled Oxygen Concentration - - Weight 99.8 kg (220 lb) 08/05/2020 2:49 PM [employer] Height 182.9 cm (6') 08/05/2020 2:49 PM [employer] Body Mass Index 29.84 08/05/2020 2:49 PM [employer] Plan of Treatment Health Maintenance Due Date Last Done Comments COLORECTAL SCREENING 2001 Colorectal Cancer Screening 2001 FIT-DNA Q 3 years 2001 FIT/FOBT Q 1 year 2001 Flex Sig/CT Colonography Q 5 years 2001 PNEUMOCOCCAL VACCINE 50+ YEA RS (1 of 1 - PCV) 2006 ZOSTER VACCINE (1 of 2) 2006 INFLUENZA VACCINE (#1) 2024 05/31/2018, 2014 DTAP/TDAP/TD VACCINES (2 - Td or Tdap) 01/13/2028 RSV VACCINE (60+ or ) (1 - 1-dose 75+ series) 2031 Insurance [facility] [employer] Member Subscriber Plan / Payer (Ef fective 2019-Present) Name:Eran Galindo Relation to Subscriber:Self Name:Eran Galindo Payer ID:Not on file Group ID:Not on file Type:Government Insurance Address: [address] [employer]
--- NOTE | 2025-02-07 10:01 | ECG_ITS ---
Test Date: 2025-02-07 10:21:26 Measurements Intervals [place] Rate: 63 P: 54 HI: 194 QRS: -13 QRSD: 93 T: 7 QT: 387 QTc: 396 Interpretive Statements SINUS RHYTHM DELAYED PRECORDIAL R/S TRANSITION BORDERLINE T WAVE ABNORMALITY- INFEIROR LEADS BASELINE ARTIFACT- I, II, III, AVR, AVL, AVF BORDERLINE ECG No previous ECG available for comparison Electronically Signed On 02-07-2025 10:50:00 CDT by Rob Mishra D.O.
[2025-02-07 10:35] LABS: Hematocrit 41.1 % (42.0-52.0); Hemoglobin 13.5 g/dL (14.0-18.0)
[2025-02-07 10:46] LABS: Anion Gap 8 mmol/L (4-12); Blood Urea Nitrogen 16 mg/dL (9-20); Calcium 9.6 mg/dL (8.4-10.2); Carbon Dioxide 23 mmol/L (22-30); Chloride 106 mmol/L (98-107); Estimated Glomerular Filt Rate > 60; Glucose 99 mg/dL (65-110); Potassium 3.8 mmol/L (3.4-5.0); Sodium 137 mmol/L (137-145)
[2025-02-07 10:53] LABS: Hemoglobin A1C 5.6 % (<5.7)
== END 2025-02-07 09:00 | disposition home or self-care (01) ==
PROVIDERS: Anesthesiology; Visit Provider Urology
DX: Z01.818 Encounter for other preprocedural examination (principal); R94.31 Abnormal electrocardiogram [ECG] [EKG]; N52.31 Erectile dysfunction following radical prostatectomy; I10 Essential (primary) hypertension; Z79.899 Other long term (current) drug therapy
CPT/HCPCS: 36415; 80048; 83036; 85014; 85018; 87086; 93005